=== PATIENT | female | born 1975 | race Caucasian/White ===

== ENCOUNTER 2017-09-27 08:00 | Outpatient (CLI) | payer OTHER ==
[2017-09-27 12:41] LABS: BASOPHILS % (AUTO) 0.5 %; EOSINOPHILS # (AUTO) 0.2 10^3/uL (0.0-0.7); EOSINOPHILS % (AUTO) 2.1 %; HGB - HEMOGLOBIN 14.5 g/dL (12.0-16.0); LYMPHOCYTES # (AUTO) 2.9 10^3/uL (1.5-3.5); LYMPHOCYTES % (AUTO) 33.6 %; MEAN CORPUSCULAR HEMOGLOBIN 29.1 pg (27.0-31.0); MEAN CORPUSCULAR HGB CONC 33.3 g/dL (32.0-36.0); MEAN CORPUSCULAR VOLUME 87.4 fL (81.0-99.0); MONOCYTES # (AUTO) 0.6 10^3/uL (0.0-1.0); MONOCYTES % (AUTO) 6.6 %; NEUTROPHILS % (AUTO) 57.2 %; PLT - PLATELET COUNT 250 10^3/uL (130-450); RED CELL DISTRIBUTION WIDTH 14.1 % (12.0-15.0); WHITE BLOOD COUNT 8.7 x10^3/uL (4.8-10.8)
[2017-09-27 13:38] LABS: THYROID STIMULATING HORMONE 6.78 uIU/mL (0.34-5.60)
[2017-09-27 13:40] LABS: FREE T4 (FREE THYROXINE) 0.68 ng/dL (0.58-1.64)
[2017-09-27 13:44] LABS: ALBUMIN 4.5 g/dL (3.2-5.5); ALBUMIN/GLOBULIN RATIO 1.2 (1.0-2.2); ALKALINE PHOSPHATASE 83 IU/L (42-121); ALT ALANINE AMINOTRANSFERASE 31 IU/L (10-60); AST ASPARTATE AMINOTRANSFERASE 28 IU/L (10-42); BILIRUBIN,TOTAL 0.6 mg/dL (0.2-1.0); BUN - BLOOD UREA NITROGEN 15 mg/dL (6-20); CALCIUM 9.2 mg/dL (8.5-10.3); CARBON DIOXIDE - CO2 27 mmol/L (21-32); CHLORIDE 105 mmol/L (101-111); CHOL/HDL RATIO 4.4 (<4.4); CHOLESTEROL 192 mg/dL; CREATININE 0.8 mg/dL (0.4-1.0); GFR - MDRD 79 (>89); GLUCOSE 95 mg/dL (70-100); HDL CHOLESTEROL 44 mg/dL; LDL CHOLESTEROL,CALCULATED 123 mg/dL; LDL/HDL RATIO 2.8 (<4.4); SODIUM 136 mmol/L (135-145); TOTAL PROTEIN 8.2 g/dL (6.7-8.2); VLDL CHOLESTEROL 25 mg/dL
== END 2017-09-27 08:01 | disposition home or self-care (01) ==
LOC: LAB.WCP 08:00
PROVIDERS: ATTEND Family Medicine
DX: E66.9 Obesity, unspecified (principal); E55.9 Vitamin D deficiency, unspecified; F41.9 Anxiety disorder, unspecified; E89.2 Postprocedural hypoparathyroidism; E89.0 Postprocedural hypothyroidism
CPT/HCPCS: 36415; 80053; 80061; 82306; 83721; 83970; 84439; 84443; 84481; 85025

== ENCOUNTER 2017-10-20 00:28 | Emergency (ER) | payer OTHER ==
[2017-10-20 01:25] LABS: BASOPHILS # (AUTO) 0.1 10^3/uL (0.0-0.1); BASOPHILS % (AUTO) 0.7 %; EOSINOPHILS # (AUTO) 0.2 10^3/uL (0.0-0.7); EOSINOPHILS % (AUTO) 1.9 %; HGB - HEMOGLOBIN 13.8 g/dL (12.0-16.0); LYMPHOCYTES # (AUTO) 4.4 10^3/uL (1.5-3.5); LYMPHOCYTES % (AUTO) 38.1 %; MEAN CORPUSCULAR HEMOGLOBIN 28.4 pg (27.0-31.0); MEAN CORPUSCULAR HGB CONC 32.7 g/dL (32.0-36.0); MEAN CORPUSCULAR VOLUME 86.8 fL (81.0-99.0); MEAN PLATELET VOLUME 10.1 fL (7.9-10.8); MONOCYTES # (AUTO) 0.7 10^3/uL (0.0-1.0); MONOCYTES % (AUTO) 6.4 %; NEUTROPHILS # (AUTO) 6.1 10^3/uL (1.5-6.6); NEUTROPHILS % (AUTO) 52.9 %; PLT - PLATELET COUNT 243 10^3/uL (130-450); RED BLOOD COUNT 4.86 10^6/uL (4.20-5.40); RED CELL DISTRIBUTION WIDTH 13.8 % (12.0-15.0); WHITE BLOOD COUNT 11.5 x10^3/uL (4.8-10.8)
[2017-10-20 01:32] LABS: BILIRUBIN,URINE NEGATIVE (NEGATIVE); GLUCOSE, URINE (UA) NEGATIVE (NEGATIVE); KETONES,URINE (UA) NEGATIVE (NEGATIVE); LEUKOCYTE ESTERASE, URINE NEGATIVE (NEGATIVE); NITRITE,URINE NEGATIVE (NEGATIVE); OCCULT BLOOD,URINE NEGATIVE (NEGATIVE); PROTEIN,URINE NEGATIVE (NEGATIVE); UROBILINOGEN,URINE 0.2 (NORMAL) E.U./dL (NORMAL)
[2017-10-20 01:33] LABS: ALBUMIN 4.3 g/dL (3.2-5.5); ALBUMIN/GLOBULIN RATIO 1.2 (1.0-2.2); BILIRUBIN,TOTAL 0.7 mg/dL (0.2-1.0); CALCIUM 9.3 mg/dL (8.5-10.3); CREATININE 0.7 mg/dL (0.4-1.0)
[2017-10-20 01:37] LABS: CLARITY,URINE CLEAR (CLEAR)
--- NOTE | 2017-10-20 01:45 | ED Physician Documentation ---
PD HPI CHEST PAIN - Stated complaint Stated Complaint: CHEST PX - Chief complaint Chief Complaint: Cardiac - History obtained from History obtained from: Patient - History of Present Illness Timing - onset: Today Timing - onset during: Rest Timing - details: Abrupt onset, Now resolved Quality: Pressure Location: Substernal, Left chest Radiation: Left upper extremity Similar symptoms before: No diagnosis Recently seen: Not recently seen - Additional information Additional information: Patient is a 42 year old female with a history of anxiety who is presenting to the emergency department for chest pain. patient states that she woke of from sleep with left sided chest pain with some radiation down her arm. patient denies any aggravating or alleviating factors. Patient states that she has had anxiety before but not like this. Patient states that it is close to the anniversary of her father dying of a heart attack when he was 51 so she was nervous. Review of Systems Constitutional: denies: Fever, Chills Eyes: reports: Reviewed and negative Ears: reports: Reviewed and negative Nose: reports: Reviewed and negative Throat: reports: Reviewed and negative Cardiac: reports: Chest pain / pressure. 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, Tubal ligation - Present Medications Home Medications: Ambulatory Orders Medication Instructions Recorded Confirmed Amitriptyline [Elavil] 1 tab PO DAILY 10/20/17 - Allergies Allergies/Adverse Reactions: Allergies Allergy/AdvReac Type Severity Reaction Status Date / Time evens AdvReac Intermediate Rash Uncoded 10/20/17 00:46 - Social History Does the pt smoke?: No Smoking Status: Never smoker Does the pt drink ETOH?: No Does the pt have substance abuse?: No - Immunizations Immunizations are current?: Yes - POLST Patient has POLST: No PD ED PE NORMAL - Vitals Vital signs reviewed: Yes - General General: Alert and oriented X 3, No acute distress - HEENT HEENT: Atraumatic, PERRL, Moist mucous membranes - Neck Neck: No JVD - Cardiac Cardiac: RRR, No murmur - Respiratory Respiratory: No respiratory distress - Abdomen Abdomen: Soft, Non tender - Derm Derm: Normal color, No rash - Extremities Extremities: No deformity, No edema, No calf tenderness / cord - Neuro Neuro: Alert and oriented X 3, No motor deficit, Normal speech Eye Opening: Spontaneous Motor: Obeys Commands Verbal: Oriented GCS Score: 15 PD ED PE EXPANDED - General General: Alert, Anxious Results - Vitals Vitals: Vital Signs - 24 hr 10/20/17 10/20/17 00:30 02:33 Temperature 36 C L Heart Rate 85 88 Respiratory 18 16 Rate Blood Pressure 128/84 H 109/62 O2 Saturation 100 96 Oxygen O2 Source Room air - EKG (time done) 0035 Rate: Rate (enter#) (76) Rhythm: NSR [place]: Normal Intervals: Normal TN QRS: Normal Ischemia: Normal ST segments Compare to prior EKG: Old EKG unavailable - Labs Labs: Laboratory Tests 10/20/17 10/20/17 10/20/17 00:30 00:30 00:30 WBC 11.5 H RBC 4.86 Hgb 13.8 Hct 42.2 MCV 86.8 MCH 28.4 MCHC 32.7 RDW 13.8 Plt Count 243 MPV 10.1 Neut # 6.1 Lymph # 4.4 H [place] # 0.7 Eos # 0.2 Baso # 0.1 Absolute Nucleated RBC 0.00 Nucleated RBC % 0.0 Sodium 137 Potassium 3.3 L Chloride 103 Carbon Dioxide 27 Anion Gap 7.0 BUN 17 Creatinine 0.7 Estimated GFR (MDRD) 92 Glucose 93 Calcium 9.3 Total Bilirubin 0.7 AST 24 ALT 28 Alkaline Phosphatase 97 Troponin I < 0.04 B-Natriuretic Peptide Total Protein 8.0 Albumin 4.3 Globulin 3.7 Albumin/Globulin Ratio 1.2 Lipase 33 Urine Color Urine Clarity Urine pH Ur Specific [place] Urine Protein Urine Glucose (UA) Urine Ketones Urine Occult Blood Urine Nitrite Urine Bilirubin Urine Urobilinogen Ur Leukocyte Esterase Ur Microscopic Review Urine Culture Comments 10/20/17 10/20/17 10/20/17 00:30 01:14 02:25 WBC RBC Hgb Hct MCV MCH MCHC RDW Plt Count MPV Neut # Lymph # [place] # Eos # Baso # Absolute Nucleated RBC Nucleated RBC % Sodium Potassium Chloride Carbon Dioxide Anion Gap BUN Creatinine Estimated GFR (MDRD) Glucose Calcium Total Bilirubin AST ALT Alkaline Phosphatase Troponin I < 0.04 B-Natriuretic Peptide 5 Total Protein Albumin Globulin Albumin/Globulin Ratio Lipase Urine Color YELLOW Urine Clarity CLEAR Urine pH 6.0 Ur Specific [place] 1.020 Urine Protein NEGATIVE Urine Glucose (UA) NEGATIVE Urine Ketones NEGATIVE Urine Occult Blood NEGATIVE Urine Nitrite NEGATIVE Urine Bilirubin NEGATIVE Urine Urobilinogen 0.2 (NORMAL) Ur Leukocyte Esterase NEGATIVE Ur Microscopic Review NOT INDICATED Urine Culture Comments NOT INDICATED - Rads (name of study) chest x-ray Radiology: Final report received (normal) PD MEDICAL DECISION MAKING - ED course Complexity details: reviewed old records, reviewed results, re-evaluated patient , considered differential, d/w patient ED course: Patient was seen and examined at bedside. ekg was performed and was within normal limits. IV access was gained and labs were drawn. chest x-ray was ordered. Patient was well appearing and in no active chest pain. Patient's diagnostics, including repeat troponin were negative. patient had a HEART score of 1. Patient required no further work up and was stable for discharge with outpatient follow up. Departure - Departure Disposition: 01 Home, Self Care Clinical Impression: Atypical chest pain Condition: Good Instructions: ED Chest Pain Atypical Unkn Cause Follow-Up: Raya Guevara PA [Primary Care Provider] - Tomorrow Comments: Your diagnostics today were within normal limits. there is no indication of acute cardiac damage. That being said this is only a snap shot in time. It is important that you follow up with your doctor. Due to the family history you could schedule a stress test and echocardiogram. You may return to the emergency department at any time for new, worsening or uncontrollable symptoms.
[2017-10-20 02:34] VITALS: BP 109/62
== END 2017-10-20 03:02 | disposition home or self-care (01) ==
LOC: ED 00:28
DX: R07.89 Other chest pain (principal)
CPT/HCPCS: 36415; 80053; 81001; 81003; 83690; 83880; 84484; 85025; 87086; 93005; 99283; 99285

== ENCOUNTER 2017-11-05 13:50 | Outpatient (CLI) | payer OTHER | END 2017-11-05 13:51 | disposition home or self-care (01) | LOC: DI 13:50 | PROVIDERS: ATTEND Physician Assistant | DX: I20.9 Angina pectoris, unspecified (principal) | CPT/HCPCS: 93306 ==

== ENCOUNTER 2017-11-07 20:58 | Outpatient (CLI) | payer OTHER ==
--- NOTE | 2017-11-08 09:42 | Ultrasound Report ---
THYROID ULTRASOUND: 11/07/2017 CLINICAL INDICATION: Dysphagia, history of thyroid surgery. COMPARISON: 07/15/2015. TECHNIQUE: Real-time scanning was performed with sales representative health insurance static images obtained. FINDINGS: The right lobe is surgically absent. The left lobe measures 4.9 x 1.6 x 0.9 cm, and demonstrates normal echotexture. The isthmus measures 2 mm. No adenopathy is seen. IMPRESSION: POSTOPERATIVE CHANGES OF RIGHT HEMITHYROIDECTOMY. NO NEW THYROID NODULE. TD: 11/08/2017 09:41
== END 2017-11-07 20:59 | disposition home or self-care (01) ==
LOC: DI 20:58
PROVIDERS: ATTEND Physician Assistant
DX: R47.02 Dysphasia (principal); E89.0 Postprocedural hypothyroidism
CPT/HCPCS: 76536

== ENCOUNTER 2017-11-11 11:14 | Outpatient (CLI) | payer OTHER ==
[2017-11-11 19:13] LABS: MAGNESIUM 2.1 mg/dL (1.7-2.8)
== END 2017-11-11 11:15 | disposition home or self-care (01) ==
LOC: LAB.WCP 11:14
PROVIDERS: ATTEND Physician Assistant
DX: E89.0 Postprocedural hypothyroidism (principal); R25.2 Cramp and spasm
CPT/HCPCS: 36415; 83735; 84443

== ENCOUNTER 2017-12-02 11:20 | Outpatient (CLI) | payer OTHER | END 2017-12-02 11:21 | disposition home or self-care (01) | LOC: LAB.WCP 11:20 | PROVIDERS: ATTEND Physician Assistant | DX: R39.15 Urgency of urination (principal) | CPT/HCPCS: 87086 ==

== ENCOUNTER 2018-02-06 08:53 | Outpatient (CLI) | payer OTHER ==
[2018-02-06 13:10] LABS: THYROID STIMULATING HORMONE 2.53 uIU/mL (0.34-5.60)
[2018-02-06 13:11] LABS: FREE T4 (FREE THYROXINE) 1.01 ng/dL (0.58-1.64)
[2018-02-06 13:38] LABS: FOLLICLE STIMULATING HORMONE 5.22 mIU/mL
== END 2018-02-06 08:54 | disposition home or self-care (01) ==
LOC: LAB.WCP 08:53
PROVIDERS: ATTEND Physician Assistant
DX: N93.9 Abnormal uterine and vaginal bleeding, unspecified (principal); E89.0 Postprocedural hypothyroidism
CPT/HCPCS: 36415; 83001; 84144; 84439; 84443

== ENCOUNTER 2018-04-06 08:00 | Outpatient (CLI) | payer OTHER ==
[2018-04-06 18:59] LABS: THYROID STIMULATING HORMONE 3.01 uIU/mL (0.34-5.60)
[2018-04-06 19:01] LABS: FREE T4 (FREE THYROXINE) 0.73 ng/dL (0.58-1.64)
== END 2018-04-06 08:01 | disposition home or self-care (01) ==
LOC: LAB.WCP 08:00
PROVIDERS: ATTEND Physician Assistant
DX: E89.0 Postprocedural hypothyroidism (principal)
CPT/HCPCS: 36415; 84439; 84443

== ENCOUNTER 2018-05-26 11:55 | Outpatient (CLI) | payer OTHER ==
--- NOTE | 2018-05-31 11:14 | Mammography Report ---
Reason: SCREENING MAMMO Procedure Date: 05/26/2018 Accession Number: [id number] / [id number] Procedure: MGN - Screening Mammo Dig Bilat CPT Code: FULL RESULT: EXAM: Screening Mammo Dig Bilat DATE: 05/26/2018 12:17 PM CLINICAL HISTORY: 43-year-old female with history of early menses for screening. TECHNIQUE: Bilateral CC, laterally exaggerated CC, MLO views were obtained. COMPARISON: None FINDINGS: The breasts demonstrate heterogeneously dense fibroglandular parenchyma bilaterally. No suspicious masses, clustered microcalcifications, or regions of architectural distortion are identified. IMPRESSION: Negative examination RECOMMENDATION: Routine annual screening unless otherwise clinically indicated. BIRADS CATEGORY 1: Negative STANDARD QUALIFYING STATEMENTS: 1. This examination was reviewed with the aid of Computer-Aided Detection (CAD). 2. A negative or benign imaging report should not delay biopsy if clinically suspicious findings are present. Consider surgical consultation if warrented. More than 5% of cancers are not identified by imaging. 3. Dense breasts may obscure an underlying neoplasm. 4. This examination was reviewed without the aid of 3D breast imaging (tomosynthesis).
== END 2018-05-26 11:56 | disposition home or self-care (01) ==
LOC: DI.N 11:55
DX: Z12.31 Encounter for screening mammogram for malignant neoplasm of breast (principal)
CPT/HCPCS: 77067

== ENCOUNTER 2018-07-06 08:00 | Outpatient (CLI) | payer OTHER ==
[2018-07-06 13:47] LABS: THYROID STIMULATING HORMONE 3.23 uIU/mL (0.34-5.60)
[2018-07-06 13:49] LABS: FREE T4 (FREE THYROXINE) 0.91 ng/dL (0.58-1.64)
== END 2018-07-06 23:59 | disposition home or self-care (01) ==
LOC: LAB.WCP 08:00
PROVIDERS: ATTEND Physician Assistant
DX: E89.0 Postprocedural hypothyroidism (principal)
CPT/HCPCS: 36415; 84439; 84443

== ENCOUNTER 2018-08-06 17:08 | Emergency (ER) | payer BC, OTHER ==
[2018-08-06] MEDS ORDERED: HYDROmorphone 2 MG TABLET PO STA ×2 (18:29→19:20)
--- NOTE | 2018-08-06 18:31 | ED Physician Documentation ---
PD HPI ABD PAIN - Stated complaint Stated Complaint: FEVER - Chief complaint Chief Complaint: Abd Pain - History obtained from History obtained from: Patient - History of Present Illness Timing - onset: Other (She went to the gynecology clinic 2 days ago for an exam. Was diagnosed with cervicitis and put on Flagyl. She was really having a symptoms but since then has had progressive right lower quadrant pain rating to the right flank with cloudy urine. She has no appendix.) Review of Systems Constitutional: reports: Fever (to 100) Ears: denies: Loss of hearing, Ear pain GI: reports: Abdominal Pain, Nausea. 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 SPECIALIST: section, Tubal ligation - Present Medications Home Medications: Ambulatory Orders Medication Instructions Recorded Confirmed Amitriptyline [Elavil] 1 tab PO DAILY 10/20/17 Metoclopramide [Reglan] 10 mg PO Q6H PRN #20 tablet 08/06/18 Morphine Ir [Ms Ir] 15 mg PO Q6H PRN #20 tablet 08/06/18 Tamsulosin [Flomax] 0.4 mg PO DAILY #14 capsule 08/06/18 - Allergies Allergies/Adverse Reactions: Allergies Allergy/AdvReac Type Severity Reaction Status Date / Time codeine Allergy Unknown Verified 08/06/18 17:26 hydrocodone Allergy Unknown Verified 08/06/18 17:26 oxycodone Allergy Unknown Verified 08/06/18 17:26 - Social History Does the pt smoke?: No Smoking Status: Never smoker Does the pt drink ETOH?: No Does the pt have substance abuse?: No - Immunizations Immunizations are current?: Yes - POLST Patient has POLST: No PD ED PE NORMAL - Vitals Vital signs reviewed: Yes - General General: Alert and oriented X 3, No acute distress - Abdomen Abdomen: Normal bowel sounds, Soft, Other (Mild RLQ TTP) - Derm Derm: Normal color, Warm and dry - Extremities Extremities: No edema, No calf tenderness / cord - Neuro Neuro: Alert and oriented X 3, Normal speech Results - Vitals Vitals: Vital Signs - 24 hr 08/06/18 17:20 Temperature 36.8 C Heart Rate 79 Respiratory 16 Rate Blood Pressure 136/77 H O2 Saturation 99 Oxygen O2 Source Room air - Labs Labs: Laboratory Tests 08/06/18 08/06/18 08/06/18 18:20 18:20 18:40 WBC 8.8 RBC 5.17 Hgb 14.9 Hct 45.0 MCV 87.1 MCH 28.9 MCHC 33.2 RDW 13.4 Plt Count 246 MPV 9.6 Neut # (Auto) 5.1 Lymph # (Auto) 2.7 [place] # (Auto) 0.7 Eos # (Auto) 0.2 Baso # (Auto) 0.1 Absolute Nucleated RBC 0.01 Nucleated RBC % 0.1 Sodium 140 Potassium 3.6 Chloride 106 Carbon Dioxide 25 Anion Gap 9.0 BUN 19 Creatinine 0.7 Estimated GFR (MDRD) 92 Glucose 90 Calcium 9.2 Total Bilirubin 0.5 AST 25 ALT 23 Alkaline Phosphatase 97 Total Protein 8.2 Albumin 4.2 Globulin 4.0 Albumin/Globulin Ratio 1.1 Lipase 42 Urine Color YELLOW Urine Clarity CLEAR Urine pH 6.0 Ur Specific [place] 1.025 Urine Protein NEGATIVE Urine Glucose (UA) NEGATIVE Urine Ketones NEGATIVE Urine Occult Blood LARGE H Urine Nitrite NEGATIVE Urine Bilirubin NEGATIVE Urine Urobilinogen 0.2 (NORMAL) Ur Leukocyte Esterase TRACE H Urine RBC TNTC H Urine WBC 4-5 Ur Squamous Epith Cells MANY Squamous H Urine Crystals 3-5 Calcium Oxalate Urine Bacteria Rare Ur Microscopic Review INDICATED Urine Culture Comments NOT INDICATED Urine HCG, Qual NEGATIVE 08/06/18 20:35 WBC RBC Hgb Hct MCV MCH MCHC RDW Plt Count MPV Neut # (Auto) Lymph # (Auto) [place] # (Auto) Eos # (Auto) Baso # (Auto) Absolute Nucleated RBC Nucleated RBC % Sodium Potassium Chloride Carbon Dioxide Anion Gap BUN Creatinine Estimated GFR (MDRD) Glucose Calcium Total Bilirubin AST ALT Alkaline Phosphatase Total Protein Albumin Globulin Albumin/Globulin Ratio Lipase Urine Color YELLOW Urine Clarity HAZY Urine pH 6.0 Ur Specific [place] >=1.030 H Urine Protein NEGATIVE Urine Glucose (UA) NEGATIVE Urine Ketones NEGATIVE Urine Occult Blood LARGE H Urine Nitrite NEGATIVE Urine Bilirubin NEGATIVE Urine Urobilinogen 0.2 (NORMAL) Ur Leukocyte Esterase NEGATIVE Urine RBC Urine WBC Ur Squamous Epith Cells Urine Crystals Urine Bacteria Ur Microscopic Review INDICATED Urine Culture Comments Not Reportable Urine HCG, Qual - Rads (name of study) CT KUB Radiology: EMP read contemporaneously (nephrolith, diverticulosis, 4x3mm distal ureteral stone) PD MEDICAL DECISION MAKING - ED course ED course: 43-year-old woman with right flank and lower abdominal pain since vaginal exam the other way but seemed inconsistent with anything that would be caused by that. A lot of blood in the urine, borderline signs of infection on the initial urinalysis which was contaminated with skin cells. She was administered divided doses of Dilaudid and a CT showed a nonobstructing distal right ureteral stone and she was also given Flomax. A repeat urine was ordered given the contaminated nature of the first urinalysis. Departure - Departure Disposition: Home, Self Care Clinical Impression: Renal colic on right side Condition: Good Record reviewed to determine appropriate education?: Yes Instructions: ED Stone Renal W Colic Prescriptions: Metoclopramide [Reglan] 10 mg PO Q6H PRN #20 tablet PRN Reason: nausea or headache Morphine Ir [Ms Ir] 15 mg PO Q6H PRN #20 tablet PRN Reason: Pain Tamsulosin [Flomax] 0.4 mg PO DAILY #14 capsule Comments: Follow-up with your urologist. Take the copy of the CAT scan on CD with you. Return for new or worsening symptoms. Do not drink or drive while taking the morphine.
[2018-08-06 18:33] LABS: BASOPHILS # (AUTO) 0.1 10^3/uL (0.0-0.1); BASOPHILS % (AUTO) 0.6 %; EOSINOPHILS # (AUTO) 0.2 10^3/uL (0.0-0.7); EOSINOPHILS % (AUTO) 1.9 %; HGB - HEMOGLOBIN 14.9 g/dL (12.0-16.0); LYMPHOCYTES # (AUTO) 2.7 10^3/uL (1.5-3.5); LYMPHOCYTES % (AUTO) 31.3 %; MEAN CORPUSCULAR HEMOGLOBIN 28.9 pg (27.0-31.0); MEAN CORPUSCULAR HGB CONC 33.2 g/dL (32.0-36.0); MEAN CORPUSCULAR VOLUME 87.1 fL (81.0-99.0); MEAN PLATELET VOLUME 9.6 fL (7.9-10.8); MONOCYTES # (AUTO) 0.7 10^3/uL (0.0-1.0); MONOCYTES % (AUTO) 8.3 %; NEUTROPHILS # (AUTO) 5.1 10^3/uL (1.5-6.6); NEUTROPHILS % (AUTO) 57.9 %; PLT - PLATELET COUNT 246 10^3/uL (130-450); RED BLOOD COUNT 5.17 10^6/uL (4.20-5.40); RED CELL DISTRIBUTION WIDTH 13.4 % (12.0-15.0); WHITE BLOOD COUNT 8.8 x10^3/uL (4.8-10.8)
[2018-08-06 18:44] LABS: ALBUMIN 4.2 g/dL (3.2-5.5); ALBUMIN/GLOBULIN RATIO 1.1 (1.0-2.2); BILIRUBIN,TOTAL 0.5 mg/dL (0.2-1.0); CALCIUM 9.2 mg/dL (8.5-10.3); CREATININE 0.7 mg/dL (0.4-1.0); TOTAL PROTEIN 8.2 g/dL (6.7-8.2)
[2018-08-06 18:50] LABS: BILIRUBIN,URINE NEGATIVE (NEGATIVE); GLUCOSE, URINE (UA) NEGATIVE (NEGATIVE); KETONES,URINE (UA) NEGATIVE (NEGATIVE); LEUKOCYTE ESTERASE, URINE TRACE (NEGATIVE); NITRITE,URINE NEGATIVE (NEGATIVE); OCCULT BLOOD,URINE LARGE (NEGATIVE); PROTEIN,URINE NEGATIVE (NEGATIVE); UROBILINOGEN,URINE 0.2 (NORMAL) E.U./dL (NORMAL)
[2018-08-06 18:53] LABS: CLARITY,URINE CLEAR (CLEAR); HCG UR QUAL NEGATIVE
[2018-08-06 18:57] LABS: BACTERIA,URINE Rare /HPF (None Seen); RBC,URINE TNTC /HPF (0-5); SQUAMOUS EPITHELIAL CELL,UR MANY Squamous (<= Few)
[2018-08-06 18:58] LABS: CRYSTALS,URINE 3-5 Calcium Oxalate /LPF
--- NOTE | 2018-08-06 20:13 | CT Report ---
Reason: R flank pain and hematuria Procedure Date: 08/06/2018 Accession Number: [id number] / [id number] Procedure: CT - Abdomen/Pelvis W/O CPT Code: FULL RESULT: EXAM: CT ABDOMEN AND PELVIS (CT KUB) WITHOUT CONTRAST. EXAM DATE: 08/06/2018 07:49 PM. CLINICAL HISTORY: Right flank pain and hematuria. COMPARISONS: None. TECHNIQUE: Routine axial helical CT imaging was performed through the abdomen and pelvis without IV contrast. Reconstructions: Coronal and sagittal. In accordance with CT protocol optimization, one or more of the following dose reduction techniques were utilized for this exam: automated exposure control, adjustment of mA and/or KV based on patient size, or use of iterative reconstructive technique. FINDINGS: Lung Bases: Unremarkable. Right Kidney/Ureter: At least 3 stones seen within the right kidney measuring 2-4 mm. There is a 4 x 3 mm calcification closely associated with the distal right ureter suspicious for a stone. Mild pelviectasis seen; otherwise no significant hydronephrosis or perinephric stranding. Left Kidney/Ureter: There is a 2 mm upper pole and 1 mm lower pole stone. No obstructive changes. Other Solid Organs: Noncontrast images of the solid organs are grossly unremarkable. Gallbladder/Bile Ducts: The gallbladder has been removed. No bile duct dilatation. Peritoneal Cavity: Diverticulosis without diverticulitis. No bowel obstruction. No free air or fluid collections. Pelvic Organs: No bladder stones or wall thickening. Noncontrast images of the visualized pelvic organs are unremarkable. Vasculature: Unremarkable. Other: Small hiatal hernia. IMPRESSION: 1. Nonobstructing 4 x 3 mm distal right ureteral stone. 2. Bilateral nephrolithiasis. 3. Diverticulosis. RADIA
[2018-08-06] MEDS ORDERED: CIPROFLOXACIN 250 MG TABLET PO STA (20:21)
[2018-08-06] MEDS ORDERED: TAMSULOSIN 0.4 MG CAPSULE PO STA (20:29)
[2018-08-06 20:40] LABS: BILIRUBIN,URINE NEGATIVE (NEGATIVE); GLUCOSE, URINE (UA) NEGATIVE (NEGATIVE); KETONES,URINE (UA) NEGATIVE (NEGATIVE); LEUKOCYTE ESTERASE, URINE NEGATIVE (NEGATIVE); NITRITE,URINE NEGATIVE (NEGATIVE); OCCULT BLOOD,URINE LARGE (NEGATIVE); PROTEIN,URINE NEGATIVE (NEGATIVE); UROBILINOGEN,URINE 0.2 (NORMAL) E.U./dL (NORMAL)
[2018-08-06 20:49] LABS: CLARITY,URINE HAZY (CLEAR)
[2018-08-06 21:07] LABS: BACTERIA,URINE Many /HPF (None Seen); RBC,URINE TNTC /HPF (0-5); SQUAMOUS EPITHELIAL CELL,UR MANY Squamous (<= Few)
[2018-08-06 21:17] VITALS: BP 114/69
== END 2018-08-06 21:26 | disposition home or self-care (01) ==
LOC: ED 17:08
DX: N20.2 Calculus of kidney with calculus of ureter (principal)
CPT/HCPCS: 36415; 74176; 80053; 81001; 81025; 83690; 85025; 87086; 99283; A9270; 81003

== ENCOUNTER 2018-08-10 17:43 | Outpatient (CLI) | payer BC, OTHER ==
--- NOTE | 2018-08-10 18:58 | Ultrasound Report ---
Reason: PELVIC PAIN Procedure Date: 08/10/2018 Accession Number: [id number] / [id number] Procedure: US - Pelvic w/Transvaginal CPT Code: FULL RESULT: EXAM: PELVIC ULTRASOUND EXAM DATE: 08/10/2018 06:24 PM. CLINICAL HISTORY: PELVIC PAIN. COMPARISON: 08/06/[address] TECHNIQUE: Realtime transabdominal pelvic scan performed to identify the uterus and adnexa and as an overview of other pelvic structures, followed by transvaginal scan to provide greater detail of the uterus and adnexa, with static image documentation. FINDINGS: Uterus: Surgically absent. Cervix: Still present. Unremarkable.. Right Ovary and left Ovary: Surgically absent. No adnexal masses. Free Fluid: None. Other: None. IMPRESSION: Negative pelvic ultrasound status post hysterectomy and bilateral oophorectomy. The cervix remains. RADIA
== END 2018-08-10 17:44 | disposition home or self-care (01) ==
LOC: DI 17:43
PROVIDERS: ATTEND Obstetrics & Gynecology
DX: R10.2 Pelvic and perineal pain (principal)
CPT/HCPCS: 76830; 76856

== ENCOUNTER 2018-08-28 17:55 | Outpatient (CLI) | payer BC ==
--- NOTE | 2018-08-28 23:27 | CT Report ---
Reason: CALCULUS OF KIDNEY Procedure Date: 08/28/2018 Accession Number: [id number] / [id number] Procedure: CT - Abdomen/Pelvis W/O CPT Code: FULL RESULT: EXAM: CT ABDOMEN AND PELVIS (CT KUB) EXAM DATE: 08/28/2018 06:13 PM. CLINICAL HISTORY: Calculus of kidney. COMPARISONS: ABDOMEN/PELVIS W/O 08/06/2018 7:31 PM. TECHNIQUE: Routine axial helical CT imaging was performed through the abdomen and pelvis without IV contrast. Reconstructions: Coronal and sagittal. In accordance with CT protocol optimization, one or more of the following dose reduction techniques were utilized for this exam: automated exposure control, adjustment of mA and/or KV based on patient size, or use of iterative reconstructive technique. FINDINGS: Lung Bases: Small hiatal hernia. Right Kidney/Ureter: Couple of small, approximately 2 mm nonobstructing stones. Mild right renal scarring. No ureteral stones, hydronephrosis, or hydroureter. No perinephric fat stranding. Left Kidney/Ureter: Scattered tiny stones measuring up to 2 mm at the upper pole. Mild left renal scarring. No ureteral stones, hydronephrosis, or hydroureter. No perinephric fat stranding. Other Solid Organs: Noncontrast images of the solid organs are grossly unremarkable. Gallbladder/Bile Ducts: Unremarkable post-cholecystectomy. Peritoneal Cavity: No free fluid, free air or yves adenopathy. Bowel is grossly unremarkable. Pelvic Organs: No bladder stones or wall thickening. Noncontrast images of the visualized pelvic organs are unremarkable. Vasculature: Unremarkable. Other: None. IMPRESSION: 1. Small bilateral nonobstructing renal stones with similar stone burden compared to the 2017 study. No ureteral stone or hydronephrosis currently. 2. Previous cholecystectomy. 3. Small hiatal hernia. RADIA
== END 2018-08-28 17:56 | disposition home or self-care (01) ==
LOC: DI 17:55
PROVIDERS: ATTEND Urology
DX: N20.0 Calculus of kidney (principal); K44.9 Diaphragmatic hernia without obstruction or gangrene; Z90.49 Acquired absence of other specified parts of digestive tract
CPT/HCPCS: 74176

== ENCOUNTER 2018-10-10 08:00 | Outpatient (CLI) | payer BC, OTHER ==
[2018-10-10 19:38] LABS: THYROID STIMULATING HORMONE 2.61 uIU/mL (0.34-5.60)
[2018-10-10 19:42] LABS: FREE T4 (FREE THYROXINE) 0.81 ng/dL (0.58-1.64)
== END 2018-10-10 23:59 | disposition home or self-care (01) ==
LOC: LAB.WCP 08:00
PROVIDERS: ATTEND Physician Assistant
DX: E89.0 Postprocedural hypothyroidism (principal)
CPT/HCPCS: 36415; 84439; 84443

== ENCOUNTER 2018-10-31 08:00 | Outpatient (CLI) | payer BC, OTHER ==
[2018-10-31 12:51] LABS: BASOPHILS % (AUTO) 0.6 %; EOSINOPHILS # (AUTO) 0.2 10^3/uL (0.0-0.7); HGB - HEMOGLOBIN 14.8 g/dL (12.0-16.0); LYMPHOCYTES # (AUTO) 3.1 10^3/uL (1.5-3.5); LYMPHOCYTES % (AUTO) 39.2 %; MEAN CORPUSCULAR HEMOGLOBIN 28.4 pg (27.0-31.0); MEAN CORPUSCULAR HGB CONC 33.2 g/dL (32.0-36.0); MEAN CORPUSCULAR VOLUME 85.7 fL (81.0-99.0); MONOCYTES # (AUTO) 0.6 10^3/uL (0.0-1.0); MONOCYTES % (AUTO) 7.8 %; NEUTROPHILS % (AUTO) 50.4 %; PLT - PLATELET COUNT 268 10^3/uL (130-450); RED BLOOD COUNT 5.19 10^6/uL (4.20-5.40); RED CELL DISTRIBUTION WIDTH 14.1 % (12.0-15.0); WHITE BLOOD COUNT 7.9 x10^3/uL (4.8-10.8)
[2018-10-31 13:29] LABS: ALBUMIN 4.2 g/dL (3.2-5.5); ALBUMIN/GLOBULIN RATIO 1.1 (1.0-2.2); BILIRUBIN,TOTAL 0.3 mg/dL (0.2-1.0); CALCIUM 9.7 mg/dL (8.5-10.3); CREATININE 0.6 mg/dL (0.4-1.0); TOTAL PROTEIN 7.9 g/dL (6.7-8.2)
== END 2018-10-31 23:59 | disposition home or self-care (01) ==
LOC: LAB.WCP 08:00
PROVIDERS: ATTEND Obstetrics & Gynecology
DX: Z01.812 Encounter for preprocedural laboratory examination (principal); N93.9 Abnormal uterine and vaginal bleeding, unspecified
CPT/HCPCS: 36415; 80053; 85025; 86850; 86900; 86901

== ENCOUNTER 2018-11-01 11:49 | Day surgery (SDC) | payer BC, OTHER ==
[2018-11-01] MEDS ORDERED: ceFAZolin 2 GM/50 ML 2 GM/50 ML BAG IV ONE (12:07)
[2018-11-01] MEDS ORDERED: LACTATED RINGERS 1,000 ML IV ONE ×2 (12:49→17:40)
--- NOTE | 2018-11-01 13:35 | ANESTHESIA ---
Pre-Anesthesia VS, & Labs - Diagnosis Continued vaginal bleeding - Procedure Removal of cervix Vital Signs: Temp Pulse Resp BP Pulse Ox 36.8 C 74 16 128/93 H 100 11/01/18 12:05 11/01/18 12:05 11/01/18 12:05 11/01/18 12:05 11/01/18 12:05 Height 5 ft 3 in Weight (kg) 84 kg Body Mass Index 31.5 - NPO >8 hours - Is Patient ?: No Home Medications and Allergies Home Medications: Ambulatory Orders ALPRAZolam [Alprazolam] 0.25 mg PO DAILY PRN 10/24/18 EPINEPHrine [Epinephrine] 0.3 mg IJ ONCE PRN 10/24/18 Estradiol [Climara] 1 each TD OAW 10/24/18 Levothyroxine Sodium 50 mcg PO DAILY 10/24/18 Multivitamin [Multiple Vitamins] 1 each PO DAILY 10/24/18 Ropinirole HCl [Requip] 0.5 mg PO QPM PRN 10/24/18 Suvorexant [Belsomra] 10 mg PO QPM PRN 10/24/18 hydrOXYzine PAMOATE [Vistaril] 25 - 50 mg PO Q6H PRN 10/24/18 ALPRAZolam [Alprazolam] 0.25 mg PO DAILY PRN 10/24/18 EPINEPHrine [Epinephrine] 0.3 mg IJ ONCE PRN 10/24/18 Estradiol [Climara] 1 each TD OAW 10/24/18 Levothyroxine Sodium 50 mcg PO DAILY 10/24/18 Multivitamin [Multiple Vitamins] 1 each PO DAILY 10/24/18 Ropinirole HCl [Requip] 0.5 mg PO QPM PRN 10/24/18 Suvorexant [Belsomra] 10 mg PO QPM PRN 10/24/18 hydrOXYzine PAMOATE [Vistaril] 25 - 50 mg PO Q6H PRN 10/24/18 Allergies/Adverse Reactions: Allergies Allergy/AdvReac Type Severity Reaction Status Date / Time blackberry Allergy Anaphylaxis Verified 10/24/18 10:49 codeine Allergy Unknown Verified 10/24/18 10:49 hydrocodone Allergy Unknown Verified 10/24/18 10:49 oxycodone Allergy Unknown Verified 10/24/18 10:49 raspberry Allergy Anaphylaxis Verified 10/24/18 10:49 Anes History & Medical History - Anesthetic History Anesthesia Complications: reports: Post-Operative Nausea/Vomiting - Medical History Cardiovascular: reports: None, Other (Had negative stress test and normal echo) Pulmonary: reports: None Gastrointestinal: reports: Hiatal hernia Urinary: reports: Kidney stones Neuro: reports: None Musculoskeletal: reports: Fatigue, Chronic back pain Endocrine/Autoimmune: reports: HyPOthyroidism Blood Disorders: reports: None Skin: reports: Rosacea, Other Smoking Status: Never smoker Psychosocial: reports: Anxiety - Surgical History General: Cholecystectomy, Appendectomy Urologic: Ureterolithotomy (stones) Gynecologic: section, Tubal ligation, Hysterectomy Exam General: Alert, Oriented x3, Cooperative, No acute distress Dental: WNL Mouth Openin Fingerbreadth Neck Mobility: Normal Mallampati classification: II Thyromental Distance: 4-6 cm Respiratory: Lungs clear, Normal breath sounds, No respiratory distress, No accessory muscle use Cardiovascular: Regular rate, Normal S1, Normal S2, No murmurs Mental/Cognitive Status: Alert/Oriented X3, Normal for patient Plan Anesthesia Type: General Consent for Procedure(s) Verified and Reviewed: Yes Code Status: Attempt Resuscitation ASA classification: 2-Mild systemic disease Is this case an emergency?: No
[2018-11-01] MEDS ORDERED: SCOPOLAMINE PATCH TOP ONE (13:57)
[2018-11-01] MEDS ORDERED: BUPIVACAINE 0.5%-EPI 1:200000 PF 30 ML VIAL ONE (15:02)
[2018-11-01] MEDS ORDERED: METHYLENE BLUE 0.5% 50 MG/10 ML AMPULE ONE (15:02)
[2018-11-01] MEDS ORDERED: BUPIVACAINE 0.25%-EPI 1:200000 PF 30 ML VIAL ONE ×2 (15:22→15:44)
[2018-11-01] MEDS ORDERED: BUPIVACAINE 0.25%-EPI 1:200000 PF 30 ML VIAL SUBQ ONE ×2 (16:04)
[2018-11-01] MEDS ORDERED: SUGAMMADEX 200 MG/2 ML VIAL IVP ONE (17:39)
[2018-11-01] MEDS ORDERED: KETOROLAC 30 MG/ML VIAL IVP ONE (17:48)
[2018-11-01] MEDS ORDERED: GLYCOPYRROLATE 1 MG/5 ML VIAL IVP ONE (17:48)
[2018-11-01] MEDS ORDERED: DEXAMETHASONE 4 MG/ML VIAL IVP ONE (17:48)
[2018-11-01] MEDS ORDERED: NEOSTIGMINE 1 MG/1 ML 10 ML MDV IVP ONE (17:48)
[2018-11-01] MEDS ORDERED: ONDANSETRON 4 MG/2 ML VIAL IVP ONE (17:48)
[2018-11-01] MEDS ORDERED: PROPOFOL 200 MG/20 ML VIAL IVP ONE (17:48)
[2018-11-01] MEDS ORDERED: MIDAZOLAM 2 MG/2 ML VIAL IVP ONE (17:48)
[2018-11-01] MEDS ORDERED: fentaNYL 250 MCG/5 ML VIAL IVP ONE (17:48)
[2018-11-01] MEDS ORDERED: ROCURONIUM 50 MG/5 ML VIAL IVP ONE (17:48)
[2018-11-01] MEDS ORDERED: ONDANSETRON 4 MG/2 ML VIAL IVP PRN (17:52)
[2018-11-01] MEDS ORDERED: ACETAMINOPHEN 1,000 MG/100 ML 100 ML IV ONE (17:52)
[2018-11-01] MEDS ORDERED: LORazepam 2 MG/ML VIAL IVP PRN (17:52)
--- NOTE | 2018-11-01 18:01 | OPERATIVE REPORT ---
Operative Report - General Procedure Date: 11/01/18 Planned Procedure: Laproscopy assisted vaginal trachelectomy, cystoscopy Pre-Op Diagnosis: vaginal bleeding Procedure Performed: laprscopic assisted vaginal trachelectomy Post Op Diagnosis: same - Procedure Note Primary Surgeon: Jake Fried MD Secondary Surgeon: Denise Wood MD Anesthesia Provider: Tavon Soria CRNA Anesthesia Technique: General ET tube Pathology: crevix IV Fluids (mL): 1,600 Estimated Blood Loss (mL): 100 Urine Output (mL): 150 Findings: Hterus and ovaries with tubes absent - Other Other Information/Narrative: #[id number]
[2018-11-01] MEDS: HYDROmorphone 0.5 MG/0.5 ML SYRINGE IVP PRN ×3 (18:02→23:51)
[2018-11-01] MEDS: LACTATED RINGERS 1,000 ML IV SCH ×2 (18:45)
[2018-11-01] MEDS ORDERED: ONDANSETRON 4 MG/2 ML VIAL ONE (18:55)
[2018-11-01] MEDS ORDERED: SODIUM CHLORIDE FLUSH 0.9% 10 ML SYRINGE ONE (18:55)
--- NOTE | 2018-11-01 20:11 | OPERATIVE REPORT ---
DATE OF SERVICE: 11/01/2018 Physician: Jake Fried MD PREOPERATIVE DIAGNOSIS: Continued bleeding despite hysterectomy. POSTOPERATIVE DIAGNOSIS: Continued bleeding despite hysterectomy. PROCEDURE PERFORMED: Laparoscopically-assisted vaginal trachelectomy with cystoscopy. SURGEON: Jake Fried MD JOB HONER: Denise Wood MD ANESTHESIA: General via endotracheal tube with Anastasiia Soria CRNA. ESTIMATED BLOOD LOSS: 100 mL. IV FLUIDS: 1600 mL. URINE OUTPUT: 150 mL. FINDINGS: Upon entering the abdominal cavity, there was no evidence of any adhesions in the pelvis. The tubes and ovaries were surgically absent. The cervix was still in place. There was no evidence of adhesive disease in the pelvis. DESCRIPTION OF PROCEDURE: Following adequate endotracheal anesthesia, the patient was placed in the dorsal lithotomy position in Castro stirrups. Pelvic examination under anesthesia was performed, at w hich time, the cervix was palpated. At this point, the patient was prepped and draped in the usual f ashion. A timeout was performed, at which time, the concerns were addressed. A speculum was placed in the vagina. The cervix was visualized, grasped with a single-tooth tenaculu m, and then a cervical manipulator was placed in the cervical os. The operative gloves were changed, and then following local anesthesia with 0.25% Marcaine in the subumbilical area, a #11 blade was us ed to incise below the umbilicus transversely. A 5 mm trocar and sheath were placed on a single pass under direct visualization. CO2 was then used to insufflate the abdominal cavity. A trocar was the n placed in the right lower quadrant, following local anesthesia as well as transillumination and ski n incision with a #11 blade. This was done on the first pass. The pelvis was inspected as the patie nt was placed in Trendelenburg. Both ovaries and tubes were missing. The cervix was still in place. At this point, the CO2 was allowed to escape. The scopes were removed. Attention was then changed to the vaginal area. A weighted speculum was placed in the vagina. The c ervix was visualized, grasped with Holt retractors, both anterior and posterior, following removal of the acorn. Cervix was then circumscribed with electrocautery, and then the cervix was sharply and bluntly dissected off the bladder. The posterior cul-de-sac was then entered using Daley scissors, a nd then a long-billed weighted speculum was placed. At this point, care was assured that we were in the abdominal cavity anteriorly. Liberty clamps were then used bilaterally to crossclamp the transver se cervical ligament as well as the uterosacral ligament concomitantly. Liberty stitches of 0 Vicryl were then placed, and then additional pedicles developed using Liberty clamps, Daley scissors, and 0 Vi cryl sutures. This was carried all the way to the apex of the cervix. Care was taken to avoid any i njury to the bowel. At this point, the cervix was removed. There was some bleeding from the posterior cuff. This was tr eated with a running locking suture of 2-0 Monocryl. At this point, the suture on the right side was noted to have come free, so a Liberty clamp was placed, and a second suture was placed on the right-h and side. Care was taken to try and avoid any injury to the ureter or other adjacent structures. At this point, the apex of the vagina was closed utilizing 2-0 Monocryl in a running locking suture. G ood hemostasis was observed. Following this, a laparoscopy was reintroduced and the apex of the vagi na inspected. There was no evidence of any active bleeding. The laparoscope was removed, and then t he ports were closed using 4-0 Monocryl subcuticular, following allowing the CO2 gas to escape. Cystoscopy was then performed. There was evidence of good methylene blue-stained urine coming from b oth ureteral orifices. There was no bleeding on the bladder at this time. The patient tolerated the procedure well and was taken to recovery in stable condition. Sponge and needle counts were correct . TD: 11/01/2018 18:22
[2018-11-01] MEDS: HYDROmorphone 2 MG TABLET PO PRN (20:32)
[2018-11-01] MEDS ORDERED: diphenhydrAMINE 25 MG CAPSULE PO PRN (22:28)
[2018-11-02] MEDS: HYDROmorphone 2 MG TABLET PO PRN ×2 (02:37→08:55)
[2018-11-02] MEDS ORDERED: SODIUM CHLORIDE FLUSH 0.9% 10 ML SYRINGE ONE (04:21)
[2018-11-02 07:51] VITALS: BP 108/68
== END 2018-11-02 09:28 | disposition home or self-care (01) ==
LOC: SDS 11:49 → OBS 18:55 → SDS 11-02 09:28
PROVIDERS: ATTEND Obstetrics & Gynecology
PROC: 0WJJ4ZZ Inspection of Pelvic Cavity, Percutaneous Endoscopic Approach (ICD-10-PCS; 2018-11-01)
PROC: 0TJB8ZZ Inspection of Bladder, Via Natural or Artificial Opening Endoscopic (ICD-10-PCS; 2018-11-01)
PROC: 0UTC7ZZ Resection of Cervix, Via Natural or Artificial Opening (ICD-10-PCS; principal; 2018-11-01 12:45)
DX: N93.9 Abnormal uterine and vaginal bleeding, unspecified (principal); Z90.79 Acquired absence of other genital organ(s); F41.9 Anxiety disorder, unspecified; Z85.820 Personal history of malignant melanoma of skin; Z87.442 Personal history of urinary calculi; E03.9 Hypothyroidism, unspecified
CPT/HCPCS: 49320; 52000; 57530; A9270; J0131; J0690; J1170; J2060; J3010; J3490; J7120

== ENCOUNTER 2018-11-10 08:00 | Outpatient (CLI) | payer BC, OTHER | END 2018-11-10 08:01 | disposition home or self-care (01) | LOC: LAB.R 08:00 | PROVIDERS: ATTEND Obstetrics & Gynecology | DX: R30.0 Dysuria (principal) | CPT/HCPCS: 87086 ==

== ENCOUNTER 2019-01-18 16:31 | Outpatient (CLI) | payer BC, OTHER ==
[2019-01-18 17:14] LABS: T4 (THYROXINE) 7.82 ug/dL (6.09-12.23)
[2019-01-18 17:18] LABS: THYROID STIMULATING HORMONE 3.95 uIU/mL (0.34-5.60)
== END 2019-01-18 16:32 | disposition home or self-care (01) ==
LOC: LAB 16:31
PROVIDERS: ATTEND Physician Assistant
DX: E89.0 Postprocedural hypothyroidism (principal)
CPT/HCPCS: 84436; 84443

== ENCOUNTER 2019-02-04 21:08 | Emergency (ER) | payer BC, OTHER ==
[2019-02-04] MEDS ORDERED: ONDANSETRON ODT 4 MG TABLET TL STA (21:28)
[2019-02-04] MEDS ORDERED: KETOROLAC 60 MG/2 ML VIAL IM STA (21:28)
--- NOTE | 2019-02-04 21:28 | ED Physician Documentation ---
PD HPI LOWER EXT INJURY - Stated complaint Stated Complaint: LFT LEG INJ - Chief complaint Chief Complaint: Ext Problem - History obtained from History obtained from: Patient - History of Present Illness PD HPI LOW EXT INJURY LOCATION: Left, Lower leg Type of injury: No: Fall Where injury occurred: Other ([employer]) Timing - onset: How many hours ago (3), Today Timing - duration: Hours (3) Timing - details: Abrupt onset Improved by: Nothing Associated symptoms: No: Numbness Contributing factors: No: Prior ortho surgery Recently seen: Not recently seen - Additional information Additional information: Is a 43-year-old woman who was using what sounds like the stairmaster machine at [employer] when the machine just stopped abruptly in her left foot came off the step. It landed she landed hard on that foot and her "heard a crack". She had extreme pain in her left ankle when this happened. She was able to walk on it initially but within 10 minutes she could not put any weight on it and had to be "carried" into the house by her . She has since ambulated with crutches and been nonweightbearing. She has a prior injury to that knee with a meniscal tear did not require surgery. 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, Hysterectomy - Present Medications Home Medications: Ambulatory Orders Medication Instructions Recorded Confirmed ALPRAZolam [Alprazolam] 0.25 mg PO DAILY PRN 10/24/18 02/04/19 Estradiol [Climara] 1 each TD OAW 10/24/18 02/04/19 Levothyroxine Sodium 50 mcg PO DAILY 10/24/18 02/04/19 Multivitamin [Multiple Vitamins] 1 each PO DAILY 10/24/18 02/04/19 Suvorexant [Belsomra] 10 mg PO QPM PRN 10/24/18 02/04/19 Naproxen 375 mg PO BID #30 tablet 02/04/19 rOPINIRole [Requip] 0.5 mg PO DAILY 02/04/19 02/04/19 - Allergies Allergies/Adverse Reactions: Allergies Allergy/AdvReac Type Severity Reaction Status Date / Time blackberry Allergy Anaphylaxis Verified 02/04/19 21:28 codeine Allergy Unknown Verified 02/04/19 21:28 hydrocodone Allergy Unknown Verified 02/04/19 21:28 meperidine [From Demerol] Allergy Unknown Verified 02/04/19 21:42 oxycodone Allergy Unknown Verified 02/04/19 21:28 raspberry Allergy Anaphylaxis Verified 02/04/19 21:28 - Social History Does the pt smoke?: No Smoking Status: Never smoker Does the pt drink ETOH?: No Does the pt have substance abuse?: No - Immunizations Immunizations are current?: Yes - POLST Patient has POLST: No PD ED PE NORMAL - Vitals Vital signs reviewed: Yes - General General: Alert and oriented X 3, No acute distress, Well developed/nourished - Derm Derm: Normal color, Warm and dry, No rash, Other (No bruising or abrasion is noted.) - Extremities Extremities: No deformity, Other (Patient has tenderness in the popliteal fossa. No bony tenderness around the knee. Patella is very minimally ballotable. The ankle does not have any bruising or swelling. She is tender above the lateral malleolus on the fibula. Limited range of motion about the ankle because of pa in. The Achilles tendon is palpable and intact. She has a 2+ dorsalis pedis pulse and she is able to wiggle her toes sensation is intact to light touch.). No: No edema, No calf tenderness / cord - Neuro Neuro: Alert and oriented X 3 - Psych Psych: Normal mood, Normal affect Results - Vitals Vitals: Vital Signs - 24 hr 02/04/19 02/04/19 21:11 22:08 Temperature 36.9 C Heart Rate 104 H 88 Respiratory 18 16 Rate Blood Pressure 131/105 H 129/84 H O2 Saturation 99 98 Oxygen O2 Source Room air PD MEDICAL DECISION MAKING - ED course Complexity details: reviewed results, d/w patient, d/w family ED course: Pain is Down to a 6 out of 10 after the Toradol. X-rays were negative for fracture of the ankle. The knee has no obvious internal derangement on physical exam at this time. Patient has access to a set of crutches. She will be given a prescription for naproxen. Ice to the ankle and range of motion exercises. Follow-up with her primary care provider if her pain persist. Departure - Departure Disposition: 01 Home, Self Care Clinical Impression: Knee pain, left Qualifiers: Chronicity: acute Qualified Code(s): M25.562 - Pain in left knee Ankle pain, left Qualifiers: Chronicity: acute Qualified Code(s): M25.572 - Pain in left ankle and joints of left foot Condition: Good Instructions: ED Sprain Ankle Follow-Up: Raya Guevara PA [Primary Care Provider] - Prescriptions: Naproxen 375 mg PO BID #30 tablet Comments: Take the naproxen twice a day as prescribed for the next 3 to 4 days consistently. Make sure you take it with food. Use crutches and minimize the weightbearing if it is painful. Range of motion exercise about the ankle 3-4 times a day as discussed. Follow-up with your doctor if the pain in the ankle or knee persists.
--- NOTE | 2019-02-04 22:01 | XRAY Report ---
Reason: ankle pain Procedure Date: 02/04/2019 Accession Number: [id number] / [id number] Procedure: XR - Ankle 3 View LT CPT Code: FULL RESULT: EXAM: LEFT ANKLE RADIOGRAPHY EXAM DATE: 02/04/2019 09:39 PM. CLINICAL HISTORY: Ankle pain after fall down stairs. COMPARISON: None. TECHNIQUE: 3 views. FINDINGS: Bones: Normal. No fractures or bone lesions. Joints: Normal. No effusion. No subluxations. The ankle mortise is normally aligned. Soft Tissues: Normal. No soft tissue swelling. IMPRESSION: Normal ankle radiography. RADIA
[2019-02-04 22:09] VITALS: BP 129/84
== END 2019-02-04 22:35 | disposition home or self-care (01) ==
LOC: ED 21:08
DX: M25.572 Pain in left ankle and joints of left foot (principal); M25.562 Pain in left knee; W17.89XA Other fall from one level to another, initial encounter; Y93.A1 Activity, exercise machines primarily for cardiorespiratory conditioning; Y92.39 Other specified sports and athletic area as the place of occurrence of the external cause
CPT/HCPCS: 73610; 96372; 99283; 99284; Q0162

== ENCOUNTER 2019-03-27 12:52 | Emergency (ER) | payer BC, OTHER ==
[~2019-03-27 12:52] MED LIST: predniSONE 20 MG TABLET PO STA
--- NOTE | 2019-03-27 12:54 | ED Physician Documentation ---
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 She ate some raspberries just prior to arrival and started to develop itchiness and the feeling throat swelling. She took her EpiPen and that is improving but still little it itchy. She also took Benadryl prior to arrival. The EpiPen may have been but she does feel jittery and improved from the allergic symptoms.) Review of Systems Ten Systems: 10 systems reviewed and negative Constitutional: denies: Fever, Chills Nose: denies: Rhinorrhea / runny nose, Congestion Throat: reports: Sore throat GI: denies: Nausea, Vomiting PD PAST MEDICAL HISTORY - Past Medical History Cardiovascular: None, Other (Had negative stress test and normal echo) Respiratory: None Neuro: None Endocrine/Autoimmune: HyPOthyroidism GI: Hiatal hernia : Kidney stones HEENT: Chronic vision loss, Chronic sinusitis Psych: Anxiety, Panic attacks Musculoskeletal: Fatigue, Chronic back pain Derm: Rosacea, Other - Past Surgical History Past Surgical History: Yes General: Cholecystectomy, 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, Tubal 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, Hysterectomy - Present Medications Home Medications: Ambulatory Orders Medication Instructions Recorded Confirmed Estradiol [Climara] 1 each TD OAW 10/24/18 02/04/19 Multivitamin [Multiple Vitamins] 1 each PO DAILY 10/24/18 02/04/19 RX: ALPRAZolam [Alprazolam] 0.25 mg PO DAILY PRN 10/24/18 02/04/19 RX: Levothyroxine Sodium 50 mcg PO DAILY 10/24/18 02/04/19 Suvorexant [Belsomra] 10 mg PO QPM PRN 10/24/18 02/04/19 RX: Naproxen 375 mg PO BID #30 tablet 02/04/19 rOPINIRole [Requip] 0.5 mg PO DAILY 02/04/19 02/04/19 RX: EPINEPHrine [Epinephrine] 0.3 mg IJ ONCE PRN #2 auto.injct 03/27/19 RX: predniSONE [Deltasone] 60 mg PO DAILY 3 Days #9 tablet 03/27/19 - Allergies Allergies/Adverse Reactions: Allergies Allergy/AdvReac Type Severity Reaction Status Date / Time blackberry Allergy Anaphylaxis Verified 03/27/19 12:57 codeine Allergy Unknown Verified 03/27/19 12:57 hydrocodone Allergy Unknown Verified 03/27/19 12:57 meperidine [From Demerol] Allergy Unknown Verified 03/27/19 12:57 oxycodone Allergy Unknown Verified 03/27/19 12:57 raspberry Allergy Anaphylaxis Verified 03/27/19 12:57 - Social History Does the pt smoke?: No Smoking Status: Never smoker Does the pt drink ETOH?: No Does the pt have substance abuse?: No - Immunizations Immunizations are current?: Yes - POLST Patient has POLST: No PD ED PE NORMAL - Vitals Vital signs reviewed: Yes - General General: Alert and oriented X 3, No acute distress - HEENT HEENT: Pharynx benign - Neck Neck: Supple, no meningeal sign, No bony TTP - Cardiac Cardiac: RRR, No murmur - Respiratory Respiratory: No respiratory distress, Clear bilaterally - Abdomen Abdomen: Non tender - Derm Derm: No rash - Neuro Neuro: Alert and oriented X 3, Normal speech Results - Vitals Vitals: Vital Signs - 24 hr 03/27/19 03/27/19 12:54 14:17 Temperature 36.0 C L Heart Rate 86 94 Respiratory 19 19 Rate Blood Pressure 147/104 H 157/85 H O2 Saturation 100 97 Oxygen O2 Source Room air PD MEDICAL DECISION MAKING - ED course ED course: 43-year-old woman with mild anaphylaxis after eating raspberries. She had already self-administered IM epinephrine with improvement. She was administered steroids and doxepin for the itching. She was observed without recurrence of her symptoms. Departure - Departure Disposition: 01 Home, Self Care Clinical Impression: Anaphylaxis due to food Condition: Good Instructions: ED Allergic React Food Prescriptions: RX: EPINEPHrine [Epinephrine] 0.3 mg IJ ONCE PRN #2 auto.injct PRN Reason: Allergy Symptoms RX: predniSONE [Deltasone] 60 mg PO DAILY 3 Days #9 tablet Comments: Call your doctor to arrange a follow-up appointment, make the next available appointment. In the interim, return anytime if worse or if new symptoms develop . Avoid raspberries Discharge Date/Time: 03/27/19 14:17
[2019-03-27] MEDS ORDERED: DOXEPIN 10 MG CAPSULE PO STA (13:20)
[2019-03-27] MEDS ORDERED: IBUPROFEN 800 MG TABLET PO STA (13:21)
[2019-03-27 14:20] VITALS: BP 157/85
== END 2019-03-27 14:17 | disposition home or self-care (01) ==
LOC: ED 12:52
DX: T78.04XA Anaphylactic reaction due to fruits and vegetables, initial encounter (principal); X58.XXXA Exposure to other specified factors, initial encounter; Z91.018 Allergy to other foods
CPT/HCPCS: 1040M; 99282; 99283; A9270; J7512

== ENCOUNTER 2019-06-07 16:08 | Outpatient (CLI) | payer BC, OTHER ==
[2019-06-07 16:24] LABS: BASOPHILS % (AUTO) 0.4 %; EOSINOPHILS # (AUTO) 0.1 10^3/uL (0.0-0.7); EOSINOPHILS % (AUTO) 1.8 %; HGB - HEMOGLOBIN 14.1 g/dL (12.0-16.0); LYMPHOCYTES # (AUTO) 3.2 10^3/uL (1.5-3.5); MEAN CORPUSCULAR HEMOGLOBIN 28.5 pg (27.0-31.0); MEAN CORPUSCULAR HGB CONC 32.2 g/dL (32.0-36.0); MEAN CORPUSCULAR VOLUME 88.7 fL (81.0-99.0); MEAN PLATELET VOLUME 11.1 fL (7.9-10.8); MONOCYTES # (AUTO) 0.7 10^3/uL (0.0-1.0); MONOCYTES % (AUTO) 8.9 %; NEUTROPHILS # (AUTO) 3.9 10^3/uL (1.5-6.6); NEUTROPHILS % (AUTO) 48.6 %; PLT - PLATELET COUNT 272 10^3/uL (130-450); RED BLOOD COUNT 4.94 10^6/uL (4.20-5.40); RED CELL DISTRIBUTION WIDTH 14.5 % (12.0-15.0)
[2019-06-07 16:34] LABS: ALBUMIN 4.1 g/dL (3.2-5.5); ALBUMIN/GLOBULIN RATIO 1.1 (1.0-2.2); BILIRUBIN,TOTAL 0.6 mg/dL (0.2-1.0); CALCIUM 9.5 mg/dL (8.5-10.3); CREATININE 0.8 mg/dL (0.4-1.0); TOTAL PROTEIN 7.8 g/dL (6.7-8.2)
[2019-06-13 08:11] LABS: ANA SCREEN Positive
== END 2019-06-07 16:09 | disposition home or self-care (01) ==
LOC: LAB 16:08
PROVIDERS: ATTEND Physician Assistant
DX: E89.0 Postprocedural hypothyroidism (principal); M25.50 Pain in unspecified joint
CPT/HCPCS: 36415; 80053; 84443; 85025; 85651; 86038

== ENCOUNTER 2019-06-08 16:41 | Outpatient (CLI) | payer BC, OTHER ==
--- NOTE | 2019-06-09 07:56 | XRAY Report ---
Reason: BILATERAL HIP PAIN Procedure Date: 06/08/2019 Accession Number: [id number] / [id number] Procedure: WCP - Hip BILAT CPT Code: Final Report FULL RESULT: EXAM: BILATERAL HIP RADIOGRAPHY EXAM DATE: 06/08/2019 08:23 AM. CLINICAL HISTORY: BILATERAL HIP PAIN. COMPARISON: None. TECHNIQUE: 2 views each. FINDINGS: Bones: No fracture or bone lesion. Right Hip: No dislocation. Mild degenerative joint disease. Left Hip: No dislocation. Mild degenerative joint disease. Soft Tissues: Grossly unremarkable. IMPRESSION: 1. Mild bilateral degenerative joint disease. RADIA
== END 2019-06-08 23:59 | disposition home or self-care (01) ==
LOC: DI.WCP 16:41
PROVIDERS: ATTEND Physician Assistant
DX: M16.0 Bilateral primary osteoarthritis of hip (principal)
CPT/HCPCS: 73521

== ENCOUNTER 2019-07-03 15:40 | Outpatient (CLI) | payer BC, OTHER ==
--- NOTE | 2019-07-04 08:02 | DEXA Report ---
Reason: POSTMENOPAUSAL Procedure Date: 07/03/2019 Accession Number: [id number] / [id number] Procedure: DEX - Dexa Spine and/or Hip CPT Code: Final Report FULL RESULT: EXAM: Dexa Spine and/or Hip DATE: 07/03/2019 4:32 PM CLINICAL HISTORY: POSTMENOPAUSAL TECHNIQUE: Dual energy x-ray absorptiometry (DXA) was performed on a ip.access System. Regions measured are the AP Spine, femoral neck, and if needed forearm. COMPARISON: None. In accordance with the International Society for Clinical Densitometry (ISCD) guidelines, data from previous exams may be reanalyzed using current recommendations and techniques. This is done to allow a more accurate basis for comparison with the current study. FINDINGS: The data for the lumbar spine is as follows: BMD (g/cm/cm) T-SCORE Z-SCORE REGION L1 0.921 -1.7 -2.3 L2 1.060 -1.2 -1.8 L3 0.970 -1.9 -2.5 L4 0.944 -2.1 -2.7 TOTAL 0.972 -1.7 -2.3 NOTE: All evaluable vertebrae are used for classification The data for the hip is as follows: BMD (g/cm/cm) T-SCORE Z-SCORE REGION Neck 0.960 -0.6 -0.4 TOTAL 1.031 0.2 0.0 NOTE: The femoral neck or total proximal femur, whichever is lowest, is used for classification. IMPRESSION: THE WHO CLASSIFICATION BASED ON THE INTERNATIONAL REFERENCE STANDARD IS OSTEOPENIA. THE FRACTURE RISK IS INCREASED. RECOMMENDATION: Patients with diagnosis of osteoporosis or osteopenia should have regular bone mineral density assessment. For those eligible for Medicare, routine testing is allowed once every 2 years. Testing frequency can be increased for patients who have rapidly progressing disease or for those who are receiving medical therapy to restore bone mass. COMMENT: World Health Organization (WHO) definitions for osteoporosis and osteopenia: NORMAL BMD: T-score at -1.0 or higher, fracture risk is low OSTEOPENIA BMD: T-score between -1.0 and -2.5, fracture risk is increased. OSTEOPOROSIS BMD: T-score at -2.5 or lower, fracture risk is high. National Osteoporosis Foundation recommends: 1. Obtain adequate dietary calcium (at least 1200 mg per day) and vitamin D (400-800 international units per day). 2. Participate, as appropriate, in regular weightbearing and muscle-strengthening exercise. 3. Avoid tobacco use and reduce alcohol and caffeine intake. 4. For more detailed information see the website at www.NOF.org.
== END 2019-07-03 15:41 | disposition home or self-care (01) ==
LOC: DI 15:40
PROVIDERS: ATTEND Physician Assistant
DX: M85.88 Other specified disorders of bone density and structure, other site (principal)
CPT/HCPCS: 77080

== ENCOUNTER 2019-07-03 15:46 | Outpatient (CLI) | payer BC, OTHER ==
--- NOTE | 2019-07-04 08:37 | Mammography Report ---
Reason: SCREENING MAMMO Procedure Date: 07/03/2019 Accession Number: [id number] / [id number] Procedure: GINA - Screening Mammo w/Jeffery CPT Code: Final Report FULL RESULT: EXAM: Screening Mammo w/Jeffery DATE: 07/03/2019 4:19 PM CLINICAL HISTORY: Screening encounter. History of early menses. TECHNIQUE: (B) - Bilateral CC, laterally exaggerated CC, MLO views were obtained. COMPARISON: 05/26/2018 and 09/20/2016. PARENCHYMAL PATTERN: (D) - The breast(s) demonstrate(s) heterogeneously dense fibroglandular parenchyma. FINDINGS: There are no suspicious masses, calcifications, or areas of distortion. IMPRESSION: Negative examination. BI-RADS category 1. RECOMMENDATION: (ANNUAL) - Recommend routine annual screening mammography. BI-RADS CATEGORY: (1) - Negative. STANDARD QUALIFYING STATEMENTS: 1. This examination was not reviewed with the aid of Computer-Aided Detection (CAD). 2. A negative or benign imaging report should not preclude biopsy if clinically suspicious findings are present. 3. Dense breasts may obscure an underlying neoplasm. 4. This examination was reviewed with the aid of 3D breast imaging (tomosynthesis).
== END 2019-07-03 15:47 | disposition home or self-care (01) ==
LOC: DI 15:46
DX: Z12.31 Encounter for screening mammogram for malignant neoplasm of breast (principal)
CPT/HCPCS: 77063; 77067

== ENCOUNTER 2019-07-05 16:04 | Outpatient (CLI) | payer BC, OTHER | END 2019-07-05 16:05 | disposition home or self-care (01) | LOC: LAB 16:04 | PROVIDERS: ATTEND Physician Assistant | DX: E89.0 Postprocedural hypothyroidism (principal) | CPT/HCPCS: 36415; 84443 ==

== ENCOUNTER 2019-07-10 09:57 | Emergency (ER) | payer BC, OTHER ==
--- NOTE | 2019-07-10 11:35 | ED Physician Documentation ---
PD HPI DYSPNEA - Stated complaint Stated Complaint: LOW 02/ELEVATED HR - Chief complaint Chief Complaint: General - History obtained from History obtained from: Patient - History of Present Illness Timing - onset: How many months ago (has had dyspnea and fatigue for 1 1/2 months, with activity. No URI symptoms. No cough per se. Has been feeling more dyspnea and fatigue the past week. Today at work ([facility] [employer]) was walking from front of office back to nurse's station and felt short of breath; had Nurse there check heart rate and O2 sats and BP was elevated at 130s systolic (her usual is about 112 systolic). Suggested to come to ER for evaluation.) Timing - onset during: Light activity, Exertion Timing - duration: Months Timing - details: Waxing and waning Inciting event(s): No: URI, Immobilization/travel Improved by: Rest Worsened by: Exertion. No: Laying flat, Coughing Associated symptoms: Cough (mild nonproductive). No: Fever, Hemoptysis, Wheezing, Palpitations, Bilateral edema Similar symptoms before: No diagnosis Recently seen: Clinic (and had blood tests done. No PFTs. Had positive NAV test so is being referred to [facility] - appt is Jul 20.) Review of Systems Constitutional: reports: Fatigue, Weight Loss. denies: Fever, Chills, Myalgias Nose: denies: Rhinorrhea / runny nose, Congestion Throat: denies: Sore throat Cardiac: denies: Chest pain / pressure, Palpitations Respiratory: reports: Dyspnea. 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 PROCESSOR: None : Kidney stones HEENT: Chronic vision loss, Chronic sinusitis Psych: Anxiety, Panic attacks Musculoskeletal: Fatigue, Chronic back pain Derm: Rosacea, Other - Past Surgical History Past Surgical History: Yes General: Cholecystectomy, Appendectomy /PARTS PROCESSOR: section, Tubal ligation, Hysterectomy - Present Medications Home Medications: Ambulatory Orders Medication Instructions Recorded Confirmed ALPRAZolam [Alprazolam] 0.25 mg PO DAILY PRN 10/24/18 02/04/19 Estradiol [Climara] 1 each TD OAW 10/24/18 02/04/19 Levothyroxine Sodium 50 mcg PO DAILY 10/24/18 02/04/19 Multivitamin [Multiple Vitamins] 1 each PO DAILY 10/24/18 02/04/19 Suvorexant [Belsomra] 10 mg PO QPM PRN 10/24/18 02/04/19 Naproxen 375 mg PO BID #30 tablet 02/04/19 rOPINIRole [Requip] 0.5 mg PO DAILY 02/04/19 02/04/19 EPINEPHrine [Epinephrine] 0.3 mg IJ ONCE PRN #2 auto.injct 03/27/19 predniSONE [Deltasone] 60 mg PO DAILY 3 Days #9 tablet 03/27/19 Albuterol Sulf [Ventolin Hfa 1 - 2 puffs INH Q4HR PRN #1 inhaler 07/10/19 Inhaler] dexAMETHasone [Decadron] 4 mg PO DAILY #7 tablet 07/10/19 - Allergies Allergies/Adverse Reactions: Allergies Allergy/AdvReac Type Severity Reaction Status Date / Time blackberry Allergy Anaphylaxis Verified 07/10/19 10:04 codeine Allergy Unknown Verified 07/10/19 10:04 hydrocodone Allergy Unknown Verified 07/10/19 10:04 meperidine [From Demerol] Allergy Unknown Verified 07/10/19 10:04 oxycodone Allergy Unknown Verified 07/10/19 10:04 raspberry Allergy Anaphylaxis Verified 07/10/19 10:04 - Social History Does the pt smoke?: No Smoking Status: Never smoker Does the pt drink ETOH?: No Does the pt have substance abuse?: No - Immunizations Immunizations are current?: Yes - POLST Patient has POLST: No PD ED PE NORMAL - Vitals Vital signs reviewed: Yes (normal sats here) - General General: Alert and oriented X 3, No acute distress, Well developed/nourished - HEENT HEENT: Ears normal, Pharynx benign - Neck Neck: Supple, no meningeal sign, No adenopathy - Cardiac Cardiac: RRR, No murmur - Respiratory Respiratory: Clear bilaterally - Abdomen Abdomen: Soft, Non tender - Derm Derm: Normal color, Warm and dry - Extremities Extremities: No tenderness to palpate, Normal ROM s pain, No edema, No calf tenderness / cord - Neuro Neuro: Alert and oriented X 3, No motor deficit Eye Opening: Spontaneous Motor: Obeys Commands Verbal: Oriented GCS Score: 15 Results - Vitals Vitals: Vital Signs - 24 hr 07/10/19 07/10/19 07/10/19 10:04 12:00 12:13 Temperature 36.9 C 36.7 C Heart Rate 87 81 80 Respiratory 17 19 18 Rate Blood Pressure 142/84 H 124/84 H 124/84 H O2 Saturation 100 96 100 07/10/19 07/10/19 14:23 14:30 Temperature Heart Rate 85 79 Respiratory 14 20 Rate Blood Pressure 112/77 112/78 O2 Saturation 95 95 Oxygen O2 Source Room air - Labs Labs: Laboratory Tests 07/10/19 07/10/19 07/10/19 11:28 11:28 11:28 WBC 6.4 RBC 4.55 Hgb 13.2 Hct 40.6 MCV 89.2 MCH 29.0 MCHC 32.5 RDW 13.6 Plt Count 231 MPV 11.5 H Neut # (Auto) 3.2 Lymph # (Auto) 2.4 Shannon # (Auto) 0.6 Eos # (Auto) 0.2 Baso # (Auto) 0.0 Absolute Nucleated RBC 0.00 Nucleated RBC % 0.0 D-Dimer Sodium 143 Potassium 3.9 Chloride 109 Carbon Dioxide 26 Anion Gap 8.0 BUN 18 Creatinine 0.8 Estimated GFR (MDRD) 78 L Glucose 87 Calcium 9.3 Total Bilirubin 0.8 AST 27 ALT 27 Alkaline Phosphatase 77 Troponin I High Sens B-Natriuretic Peptide 13 Total Protein 7.2 Albumin 3.9 Globulin 3.3 Albumin/Globulin Ratio 1.2 Lipase 32 07/10/19 07/10/19 11:28 13:50 WBC RBC Hgb Hct MCV MCH MCHC RDW Plt Count MPV Neut # (Auto) Lymph # (Auto) Shannon # (Auto) Eos # (Auto) Baso # (Auto) Absolute Nucleated RBC Nucleated RBC % D-Dimer < 200.0 L Sodium Potassium Chloride Carbon Dioxide Anion Gap BUN Creatinine Estimated GFR (MDRD) Glucose Calcium Total Bilirubin AST ALT Alkaline Phosphatase Troponin I High Sens < 2.3 L B-Natriuretic Peptide Total Protein Albumin Globulin Albumin/Globulin Ratio Lipase - Rads (name of study) chest xray Radiology: Prelim report reviewed (no acute process), See rad report ECHO Radiology: Prelim report reviewed (normal), See rad report PD MEDICAL DECISION MAKING - ED course Complexity details: reviewed old records, reviewed results, considered differential (sats are good here and CXR, ECHO, trop, BNP, d-dimer, CBC and chemistry are all good. ), d/w patient Departure - Departure Disposition: 01 Home, Self Care Clinical Impression: Dyspnea on effort Condition: Stable Record reviewed to determine appropriate education?: Yes Instructions: ED Dyspnea Shortness of Breath Follow-Up: Raya Guevara PA [Primary Care Provider] - Prescriptions: Albuterol Sulf [Ventolin Hfa Inhaler] 1 - 2 puffs INH Q4HR PRN #1 inhaler PRN Reason: Shortness Of Air/Wheezing dexAMETHasone [Decadron] 4 mg PO DAILY #7 tablet Comments: Your tests here appear normal. These include blood count and electrolytes, blood tests to screen for heart failure, heart muscle injury and blood clots, chest x-ray, echocardiogram. Your primary care should be able to reference these results. At this point I would suggest trying some Decadron steroid for presumed inflammation through the airways and an albuterol inhaler 2 puffs 4 times a day and extra times if needed for trouble breathing. See if you have improvement with these over the next several days to week. Follow-up with your primary care and also with the planned professor of medicine referral. Discharge Date/Time: 07/10/19 15:18
[2019-07-10 11:40] LABS: BASOPHILS % (AUTO) 0.3 %; EOSINOPHILS # (AUTO) 0.2 10^3/uL (0.0-0.7); EOSINOPHILS % (AUTO) 2.7 %; HGB - HEMOGLOBIN 13.2 g/dL (12.0-16.0); LYMPHOCYTES # (AUTO) 2.4 10^3/uL (1.5-3.5); LYMPHOCYTES % (AUTO) 37.7 %; MEAN CORPUSCULAR HGB CONC 32.5 g/dL (32.0-36.0); MEAN CORPUSCULAR VOLUME 89.2 fL (81.0-99.0); MEAN PLATELET VOLUME 11.5 fL (7.9-10.8); MONOCYTES # (AUTO) 0.6 10^3/uL (0.0-1.0); MONOCYTES % (AUTO) 9.2 %; NEUTROPHILS # (AUTO) 3.2 10^3/uL (1.5-6.6); NEUTROPHILS % (AUTO) 49.9 %; PLT - PLATELET COUNT 231 10^3/uL (130-450); RED BLOOD COUNT 4.55 10^6/uL (4.20-5.40); RED CELL DISTRIBUTION WIDTH 13.6 % (12.0-15.0); WHITE BLOOD COUNT 6.4 x10^3/uL (4.8-10.8)
[2019-07-10 11:54] LABS: ALBUMIN 3.9 g/dL (3.2-5.5); ALBUMIN/GLOBULIN RATIO 1.2 (1.0-2.2); BILIRUBIN,TOTAL 0.8 mg/dL (0.2-1.0); CALCIUM 9.3 mg/dL (8.5-10.3); CREATININE 0.8 mg/dL (0.4-1.0); TOTAL PROTEIN 7.2 g/dL (6.7-8.2)
--- NOTE | 2019-07-10 12:26 | XRAY Report ---
Reason: heart racing Procedure Date: 07/10/2019 Accession Number: [id number] / [id number] Procedure: XR - Chest 1 View X-Ray CPT Code: 73942 Final Report FULL RESULT: EXAM: CHEST RADIOGRAPHY 1 VIEW EXAM DATE: 07/10/2019. CLINICAL HISTORY: Heart racing. COMPARISON: Abdomen and pelvis CT done 08/28/2018. TECHNIQUE: AP upright portable chest at 1136. FINDINGS: Lungs/Pleura: Normal vasculature. The lungs are clear. No pleural fluid or pneumothorax. Mediastinum: Heart size is normal. 7 cm hiatal hernia. Otherwise normal mediastinal contours. Bones: Normal. IMPRESSION: 7 cm hiatal hernia, unchanged from an abdomen and pelvis CT done 08/28/2018. Otherwise normal examination. RADIA
[2019-07-10] MEDS ORDERED: DEXAMETHASONE 10 MG/ML VIAL IVP STA (14:17)
[2019-07-10] MEDS ORDERED: KETOROLAC 30 MG/ML VIAL IVP STA (14:17)
[2019-07-10 14:50] VITALS: BP 112/78
== END 2019-07-10 15:18 | disposition home or self-care (01) ==
LOC: ED 09:57
DX: R06.00 Dyspnea, unspecified (principal)
CPT/HCPCS: 36415; 71045; 80053; 83690; 83880; 84484; 85025; 85379; 93005; 93306; 96374; 99283

== ENCOUNTER 2019-07-24 13:35 | Outpatient (CLI) | payer BC, OTHER | END 2019-07-24 23:59 | disposition home or self-care (01) | LOC: LAB.WCP 13:35 | PROVIDERS: ATTEND Physician Assistant | DX: E89.0 Postprocedural hypothyroidism (principal) | CPT/HCPCS: 36415; 84443 ==

== ENCOUNTER 2019-07-29 09:10 | Outpatient (CLI) | payer BC, OTHER ==
[~2019-07-29 09:10] MED LIST changes: +ALBUTEROL NEB 2.5 MG/3 ML INH SCH; -predniSONE 20 MG TABLET PO STA
== END 2019-07-29 09:11 | disposition home or self-care (01) ==
LOC: RT 09:10
PROVIDERS: ATTEND Physician Assistant
DX: R06.02 Shortness of breath (principal)
CPT/HCPCS: 94010

== ENCOUNTER 2019-08-30 12:11 | Day surgery (SDC) | payer BC, OTHER ==
[2019-08-30] MEDS ORDERED: fentaNYL 250 MCG/5 ML VIAL IVP ONE (12:12)
[2019-08-30] MEDS ORDERED: MIDAZOLAM 2 MG/2 ML VIAL IVP ONE (12:12)
[2019-08-30] MEDS ORDERED: LACTATED RINGERS 1,000 ML IV ONE (12:28)
[2019-08-30] MEDS ORDERED: SCOPOLAMINE PATCH TOP ONE (12:59)
[2019-08-30] MEDS ORDERED: LIDO GARGLE 30 ML BOTTLE ONE (13:45)
[2019-08-30] MEDS ORDERED: LIDO GARGLE 30 ML BOTTLE PO ONE (13:50)
[2019-08-30 15:39] VITALS: BP 118/89
== END 2019-08-30 12:12 | disposition home or self-care (01) ==
LOC: SDS 12:11
PROVIDERS: ATTEND Surgery
PROC: 0DB68ZX Excision of Stomach, Via Natural or Artificial Opening Endoscopic, Diagnostic (ICD-10-PCS; 2019-08-30)
PROC: 0DB48ZX Excision of Esophagogastric Junction, Via Natural or Artificial Opening Endoscopic, Diagnostic (ICD-10-PCS; 2019-08-30)
PROC: 0DBE8ZX Excision of Large Intestine, Via Natural or Artificial Opening Endoscopic, Diagnostic (ICD-10-PCS; principal; 2019-08-30 13:30)
PROC: 0DB98ZX Excision of Duodenum, Via Natural or Artificial Opening Endoscopic, Diagnostic (ICD-10-PCS; 2019-08-30 13:30)
DX: R11.2 Nausea with vomiting, unspecified (principal); R19.4 Change in bowel habit; R10.10 Upper abdominal pain, unspecified; K44.9 Diaphragmatic hernia without obstruction or gangrene; K21.9 Gastro-esophageal reflux disease without esophagitis; K29.60 Other gastritis without bleeding; K64.8 Other hemorrhoids; K57.30 Diverticulosis of large intestine without perforation or abscess without bleeding; K56.41 Fecal impaction; E66.9 Obesity, unspecified; Z68.32 Body mass index [BMI] 32.0-32.9, adult
CPT/HCPCS: 43239; 45380; 83630; 87015; 87177; 87209; 87272; 87329; 87493; A9270; J3010; J3490; J7120

== ENCOUNTER 2019-10-03 10:31 | Outpatient (CLI) | payer BC, OTHER ==
[2019-10-03] MEDS ORDERED: IOVERSOL 320 50 ML VIAL ONE (10:39)
[2019-10-03] MEDS ORDERED: IOVERSOL 320 100 ML VIAL IVP ONE ×2 (10:39→13:05)
[2019-10-03] MEDS ORDERED: IOVERSOL 320 50 ML VIAL PO ONE (13:05)
--- NOTE | 2019-10-05 02:09 | CT Report ---
Reason: HIATAL HERNIA W/GERD AND ESOPHAGILITIS Procedure Date: 10/03/2019 Accession Number: [id number] / [id number] Procedure: CT - Abdomen/Pelvis W CPT Code: Final Report FULL RESULT: EXAM: CT CHEST CT ABDOMEN AND PELVIS EXAM DATE: 10/03/2019 11:52 AM CLINICAL HISTORY: Hiatal hernia with GERD and esophagitis. COMPARISONS: ABDOMEN/PELVIS W/O 08/28/2018 6:04 PM, CHEST W/ 10/03/2019 11:52 AM. TECHNIQUE: 1. Routine helical CT imaging was performed through the chest. IV contrast: 100 mL Optiray 320. Enteric contrast: No. Reconstructions: Coronal and sagittal. 2. Routine helical CT imaging was performed through the abdomen and pelvis. IV contrast: 100 mL Optiray 320. Enteric contrast: No. Reconstructions: Coronal and sagittal. In accordance with CT protocol optimization, one or more of the following dose reduction techniques were utilized for this exam: automated exposure control, adjustment of mA and/or KV based on patient size, or use of iterative reconstructive technique. FINDINGS: CHEST: Lungs/Pleura: No infiltrates. No pleural effusions or pneumothorax. No suspicious nodules or masses. Thoracic Aorta: Unremarkable. Pulmonary Arteries: Within normal limits. Mediastinum: Heart size within normal limits. No pericardial effusions. No mediastinal or hilar lymphadenopathy. Moderate to large paraesophageal hiatal hernia containing the fundus of the stomach. Minimal wall thickening involving the distal most esophagus. Bones: Unremarkable. Chest Wall: Unremarkable. ABDOMEN/PELVIS: Liver: Focal fatty infiltration in segment-4B of the liver. No suspicious hepatic masses. Gallbladder/Bile Ducts: Surgically absent gallbladder. No intrahepatic or extrahepatic biliary ductal dilatation. Spleen: Normal. Pancreas: Normal. Adrenal Glands: Normal. Kidneys: Multiple areas of renal cortical scarring bilaterally. Two nonobstructing left intrarenal stones with the larger stone in the upper collecting system measuring 4 mm in diameter. Mild left-sided hydronephrosis. Two adjacent obstructing stones in the mid left ureter measuring up to 5.5 mm in the axial plane. The two stones together measure up to 9.5 mm in the craniocaudal dimension. Mild right-sided hydronephrosis. Obstructing stone in the mid right ureter measuring 5 mm in the axial plane and 6 mm in the craniocaudal dimension. Peritoneal Cavity/Bowel: Normal caliber of the bowel without evidence of obstruction. No focal bowel wall thickening or inflammation. Appendix: Appendix not visualized with certainty. No inflammatory changes in the right lower quadrant. Pelvic Organs: Urinary bladder unremarkable. Surgically absent uterus. No adnexal masses. Vasculature: No aneurysms or other significant abnormality. Bones: No significant abnormality. Other: None. IMPRESSION: CHEST: 1. Moderate to large paraesophageal hiatal hernia containing the fundus of the stomach. 2. Minimal distal esophageal wall thickening which can be seen with esophagitis. 3. Otherwise, no acute findings in the chest. ABDOMEN/PELVIS: 1. Two adjacent obstructing stones in the mid left ureter measuring up to 5.5 mm in the axial plane. The two stones together measure up to 9.5 mm in the craniocaudal dimension. This is associated with mild left-sided hydronephrosis. 2. Obstructing stone in the mid right ureter measuring 5 mm in the axial plane and 6 mm in the craniocaudal dimension. This is associated with mild right-sided hydronephrosis. 3. No other acute findings in the abdomen or pelvis. 4. Two nonobstructing left intrarenal stones with the larger stone in the upper collecting system measuring 4 mm in diameter. RADIA
== END 2019-10-03 10:32 | disposition home or self-care (01) ==
LOC: DI 10:31
PROVIDERS: ATTEND Surgery
DX: K44.9 Diaphragmatic hernia without obstruction or gangrene (principal); K21.0 Gastro-esophageal reflux disease with esophagitis; N13.2 Hydronephrosis with renal and ureteral calculous obstruction
CPT/HCPCS: 71260; 74177; 74220; A9270; Q9967

== ENCOUNTER 2019-10-03 12:38 | Outpatient (CLI) | payer BC, OTHER ==
[2019-10-03] MEDS ORDERED: BARIUM SULFATE 135 ML BOTTLE PO ONE (13:46)
[2019-10-03] MEDS ORDERED: SIMETHICONE/SOD BICARB/CIT AC 1 EACH PACKET PO ONE (13:46)
[2019-10-03] MEDS ORDERED: BARIUM SULFATE 148 GM POWDER PO ONE (13:46)
[2019-10-03] MEDS ORDERED: BARIUM SULFATE 700 MG TABLET PO ONE (13:46)
--- NOTE | 2019-10-03 14:10 | XRAY Report ---
Reason: HIATAL HERNIA W/GERD AND ESOPHAGILITIS Procedure Date: 10/03/2019 Accession Number: [id number] / [id number] Procedure: FL - Esophogram CPT Code: Final Report FULL RESULT: EXAM: BARIUM ESOPHAGRAM EXAM DATE: 10/03/2019 12:59 PM. CLINICAL HISTORY: Hiatal hernia with GERD and esophagitis. COMPARISONS: None. TECHNIQUE: Routine double contrast esophagram. Fluoroscopy Time: 1 minute 10 seconds. Number of Images: 16. FINDINGS: Swallowing Mechanism: Not evaluated, study is tailored towards the anatomy and functional implications of the paraesophageal hernia. Esophageal Motility: Normal peristaltic stripping wave. Mucosa: Normal. No ulcerations or masses. Gastroesophageal Junction: The known paraesophageal hernia is demonstrated, at least moderate in size. Partially, a very small sliding hiatal hernia is also present. There is no holdup of barium or the barium tablet in the lower esophagus or gastroesophageal junction. Other: Configuration of proximal duodenum and ligament of Treitz normal relationship. The greater and lesser curvatures of the stomach appear to be underneath the diaphragm with the paraesophageal hernia predominantly composed of gastric cardia. IMPRESSION: Anatomic configuration of paraesophageal hernia without significant holdup of barium as described. RADIA
== END 2019-10-03 12:39 | disposition home or self-care (01) ==
LOC: DI 12:38
PROVIDERS: ATTEND Surgery
DX: K44.9 Diaphragmatic hernia without obstruction or gangrene (principal); K21.0 Gastro-esophageal reflux disease with esophagitis
CPT/HCPCS: 74220

== ENCOUNTER 2019-10-04 08:47 | Outpatient (CLI) | payer BC, OTHER ==
--- NOTE | 2019-10-05 14:42 | Nuclear Medicine Report ---
Reason: HIATAL HERNIA W/GERD AND ESOPHAGILITIS Procedure Date: 10/04/2019 Accession Number: [id number] / [id number] Procedure: NM - Gastric Empty Small Bowel CPT Code: Final Report FULL RESULT: EXAM: GASTRIC EMPTYING STUDY EXAM DATE: 10/04/2019 08:55 AM. CLINICAL HISTORY: Hiatal hernia w/GERD and esophagitis. COMPARISON: None. TECHNIQUE: A standard meal was radiolabeled with 1 mCi Tc-99m sulfur colloid according to protocol. Following the p.o. administration of this meal, the patient underwent multiple static images over the abdomen from the anterior and posterior projections, at approximately 0, 1, 2, and 3, 4 hours following the ingestion of the meal. Region of interest analysis was employed, and percent emptied/percent remaining of the meal was calculated using both the geometric mean and decay corrections. FINDINGS: Calculations demonstrate: TIME (hours) Percent remaining. Normal values for percent remaining. 1 hour: 12.7% (30-90%) 2 hours: 7.9% (0-60%) 3 hours: 3.6% (0-30%) 4 hours: 2.1% (0-10%) IMPRESSION: Rapid gastric emptying. RADIA
== END 2019-10-04 08:48 | disposition home or self-care (01) ==
LOC: DI 08:47
PROVIDERS: ATTEND Surgery
DX: K44.9 Diaphragmatic hernia without obstruction or gangrene (principal); K21.0 Gastro-esophageal reflux disease with esophagitis; R10.84 Generalized abdominal pain
CPT/HCPCS: 78265

== ENCOUNTER 2019-10-27 19:43 | Emergency (ER) | payer BC, OTHER ==
[2019-10-27] MEDS ORDERED: SODIUM CHLORIDE 0.9% 1,000 ML IV ONE (20:01)
[2019-10-27] MEDS ORDERED: ONDANSETRON 4 MG/2 ML VIAL IVP STA (20:01)
[2019-10-27] MEDS ORDERED: HYDROmorphone 1 MG/ML CARPUJECT IVP STA ×2 (20:02→21:02)
[2019-10-27] MEDS ORDERED: KETOROLAC 30 MG/ML VIAL IVP STA (20:02)
[2019-10-27 20:03] LABS: BILIRUBIN,URINE NEGATIVE (NEGATIVE); GLUCOSE, URINE (UA) NEGATIVE (NEGATIVE); KETONES,URINE (UA) NEGATIVE (NEGATIVE); LEUKOCYTE ESTERASE, URINE NEGATIVE (NEGATIVE); NITRITE,URINE NEGATIVE (NEGATIVE); OCCULT BLOOD,URINE LARGE (NEGATIVE); PROTEIN,URINE 30 mg/dL (NEGATIVE); UROBILINOGEN,URINE 0.2 (NORMAL) E.U./dL (NORMAL)
[2019-10-27 20:05] LABS: CLARITY,URINE CLEAR (CLEAR); HCG UR QUAL NEGATIVE
--- NOTE | 2019-10-27 20:07 | ED Physician Documentation ---
PD HPI ABD PAIN - Stated complaint Stated Complaint: BACK PX, NAUSEA, F - Chief complaint Chief Complaint: Abd Pain - History obtained from History obtained from: Patient - History of Present Illness Timing - onset: Other (44-year-old woman had severe sudden onset right flank pain radiating to her right lower quadrant earlier this evening that was unrelieved by taking some leftover morphine at home. She denies urinary complaints or fevers. She is slightly nauseous but is always nauseous. She had a CT done, it was preoperative for perioperative esophageal hernia repair. It was about 3 weeks ago. Incidental findings were bilateral ureteral lifts including an obstructing stone in the right mid ureter measuring 5 mm x 6 mm. She was not aware of this finding. She also had 2 adjacent stones in the left mid ureter.) Review of Systems Ten Systems: 10 systems reviewed and negative Constitutional: denies: Fever, Chills Cardiac: reports: Reviewed and negative Respiratory: reports: Reviewed and negative PD PAST MEDICAL HISTORY - Past Medical History Cardiovascular: None Respiratory: None Neuro: None Endocrine/Autoimmune: HyPOthyroidism GI: Hiatal hernia PERIANESTHESIA RN: None : Kidney stones HEENT: Chronic vision loss, Chronic sinusitis Psych: Anxiety, Panic attacks Musculoskeletal: Fatigue, Chronic back pain Derm: Rosacea, Other - Past Surgical History Past Surgical History: Yes General: Cholecystectomy, Appendectomy /PERIANESTHESIA RN: section, Tubal ligation, Hysterectomy - Present Medications Home Medications: Ambulatory Orders Medication Instructions Recorded Confirmed ALPRAZolam [Alprazolam] 0.25 mg PO DAILY PRN 10/24/18 08/30/19 rOPINIRole [Requip] 0.5 mg PO DAILY 02/04/19 08/30/19 EPINEPHrine [Epinephrine] 0.3 mg IJ ONCE PRN #2 auto.injct 03/27/19 08/30/19 Albuterol Sulf [Ventolin Hfa 1 - 2 puffs INH Q4HR PRN #1 inhaler 07/10/19 08/30/19 Inhaler] Cyclobenzaprine [Flexeril] 10 mg PO PRN PRN 08/30/19 08/30/19 DULoxetine [Cymbalta] 30 mg PO DAILY 08/30/19 08/30/19 Potassium Citrate [Potassium 5 meq PO DAILY 08/30/19 08/30/19 Citrate ER] Thyroid [[place] Thyroid] 60 mg PO DAILY 08/30/19 08/30/19 hydrOXYzine HCL [Hydroxyzine HCl] 25 mg PO DAILY 08/30/19 08/30/19 HYDROmorphone [Dilaudid] 1 - 2 mg PO Q6H PRN #15 tablet 10/27/19 Ondansetron Odt [Zofran] 4 mg TL Q6H PRN #20 tablet 10/27/19 Tamsulosin [Flomax] 0.4 mg PO DAILY #14 capsule 10/27/19 - Allergies Allergies/Adverse Reactions: Allergies Allergy/AdvReac Type Severity Reaction Status Date / Time blackberry Allergy Anaphylaxis Verified 10/27/19 19:52 codeine Allergy Unknown Verified 10/27/19 19:52 hydrocodone Allergy Unknown Verified 10/27/19 19:52 meperidine [From Demerol] Allergy Unknown Verified 10/27/19 19:52 oxycodone Allergy Unknown Verified 10/27/19 19:52 raspberry Allergy Anaphylaxis Verified 10/27/19 19:52 - Social History Does the pt smoke?: No Smoking Status: Never smoker Does the pt drink ETOH?: No Does the pt have substance abuse?: No - Immunizations Immunizations are current?: Yes - POLST Patient has POLST: No PD ED PE NORMAL - Vitals Vital signs reviewed: Yes - General General: Alert and oriented X 3, No acute distress - Abdomen Abdomen: Soft, Non tender (Modest right flank and right lower quadrant tenderness without surgical signs, note she is status post remote appendectomy.) - Derm Derm: Normal color, Warm and dry - Extremities Extremities: No edema, No calf tenderness / cord - Neuro Neuro: Alert and oriented X 3, Normal speech Results - Vitals Vitals: Vital Signs - 24 hr 10/27/19 19:48 Temperature 36.6 C Heart Rate 91 Respiratory 18 Rate Blood Pressure 140/88 H O2 Saturation 96 Oxygen O2 Source Room air - Labs Labs: Laboratory Tests 10/27/19 10/27/19 10/27/19 19:57 20:20 20:20 WBC 13.5 H RBC 5.01 Hgb 14.6 Hct 43.9 MCV 87.6 MCH 29.1 MCHC 33.3 RDW 13.4 Plt Count 259 MPV 11.3 H Neut # (Auto) 9.2 H Lymph # (Auto) 3.1 Henry # (Auto) 0.9 Eos # (Auto) 0.2 Baso # (Auto) 0.1 Absolute Nucleated RBC 0.00 Nucleated RBC % 0.0 Sodium 139 Potassium 3.4 L Chloride 106 Carbon Dioxide 22 Anion Gap 11.0 BUN 17 Creatinine 1.0 Estimated GFR (MDRD) 61 L Glucose 149 H Calcium 9.3 Total Bilirubin 0.5 AST 23 ALT 24 Alkaline Phosphatase 80 Total Protein 7.9 Albumin 4.3 Globulin 3.6 Albumin/Globulin Ratio 1.2 Lipase 33 Urine Color YELLOW Urine Clarity CLEAR Urine pH 5.0 Ur Specific [place] >=1.030 H Urine Protein 30 H Urine Glucose (UA) NEGATIVE Urine Ketones NEGATIVE Urine Occult Blood LARGE H Urine Nitrite NEGATIVE Urine Bilirubin NEGATIVE Urine Urobilinogen 0.2 (NORMAL) Ur Leukocyte Esterase NEGATIVE Urine RBC 11-25 H Urine WBC 0-3 Ur Squamous Epith Cells MOD Squamous H Urine Bacteria Rare Urine Mucus Few Strands Ur Microscopic Review INDICATED Urine Culture Comments NOT INDICATED Urine HCG, Qual NEGATIVE PD MEDICAL DECISION MAKING - ED course ED course: 44-year-old woman with known bilateral ureterolithiasis based on a CT from about 3 weeks ago presents with right flank pain radiating to the right lower quadrant consistent with renal colic. Thankfully her renal function is normal and her pain was not too hard to control with IV meds here. She will follow-up with her urologist. She is given a copy of her CAT scan on a CD and the report to aid. Departure - Departure Disposition: 01 Home, Self Care Clinical Impression: Renal colic on right side Condition: Good Record reviewed to determine appropriate education?: Yes Instructions: ED Stone Renal W Colic Prescriptions: HYDROmorphone [Dilaudid] 1 - 2 mg PO Q6H PRN #15 tablet PRN Reason: Pain Ondansetron Odt [Zofran] 4 mg TL Q6H PRN #20 tablet PRN Reason: Nausea / Vomiting Tamsulosin [Flomax] 0.4 mg PO DAILY #14 capsule Comments: Follow-up with your urologist with a copy of the CAT scan for bilateral ureteral lifts of decent size. Return for new or worsening symptoms. Drink plenty fluids. Do not get up too fast while on the Flomax, will make you dizzy. Do not drink or drive while taking narcotic pain medication. Note that many narcotic pain relievers also contain Tylenol/acetaminophen. Please ensure that your total dose of acetaminophen from all sources does not exceed 3 g (3000 mg) per day. You may get constipated while on this medication. Take a stool softener such as Colace twice a day while you are on it. Also add an bjik-kpa-nuxavyc laxative such as senna or MiraLAX on any day that you do not have a bowel movement. If you received a narcotic pain medication or sedative while in the emergency department, do not drive for the next 24 hours.
[2019-10-27 20:13] LABS: BACTERIA,URINE Rare /HPF (None Seen); MUCUS,URINE Few Strands; SQUAMOUS EPITHELIAL CELL,UR MOD Squamous (<= Few)
[2019-10-27 20:36] LABS: BASOPHILS # (AUTO) 0.1 10^3/uL (0.0-0.1); BASOPHILS % (AUTO) 0.4 %; EOSINOPHILS # (AUTO) 0.2 10^3/uL (0.0-0.7); EOSINOPHILS % (AUTO) 1.2 %; HGB - HEMOGLOBIN 14.6 g/dL (12.0-16.0); LYMPHOCYTES # (AUTO) 3.1 10^3/uL (1.5-3.5); MEAN CORPUSCULAR HEMOGLOBIN 29.1 pg (27.0-31.0); MEAN CORPUSCULAR HGB CONC 33.3 g/dL (32.0-36.0); MEAN CORPUSCULAR VOLUME 87.6 fL (81.0-99.0); MEAN PLATELET VOLUME 11.3 fL (7.9-10.8); MONOCYTES # (AUTO) 0.9 10^3/uL (0.0-1.0); MONOCYTES % (AUTO) 6.9 %; NEUTROPHILS # (AUTO) 9.2 10^3/uL (1.5-6.6); NEUTROPHILS % (AUTO) 67.9 %; PLT - PLATELET COUNT 259 10^3/uL (130-450); RED BLOOD COUNT 5.01 10^6/uL (4.20-5.40); RED CELL DISTRIBUTION WIDTH 13.4 % (12.0-15.0); WHITE BLOOD COUNT 13.5 x10^3/uL (4.8-10.8)
[2019-10-27 20:46] LABS: ALBUMIN 4.3 g/dL (3.2-5.5); ALBUMIN/GLOBULIN RATIO 1.2 (1.0-2.2); BILIRUBIN,TOTAL 0.5 mg/dL (0.2-1.0); CALCIUM 9.3 mg/dL (8.5-10.3); TOTAL PROTEIN 7.9 g/dL (6.7-8.2)
[2019-10-27] MEDS ORDERED: ONDANSETRON ODT 4 MG Prepack 2 TL STA (21:02)
[2019-10-27] MEDS ORDERED: TAMSULOSIN 0.4 MG CAPSULE PO STA (21:03)
[2019-10-27 21:45] VITALS: BP 144/80
== END 2019-10-27 21:43 | disposition home or self-care (01) ==
LOC: ED 19:43
DX: N20.2 Calculus of kidney with calculus of ureter (principal)
CPT/HCPCS: 36415; 80053; 81001; 81025; 83690; 85025; 96361; 96374; 96376; 99283; 99284; A9270; J1170; 81003; 87086

== ENCOUNTER 2019-10-28 20:12 | Emergency (ER) | payer BC, OTHER ==
[2019-10-28] MEDS ORDERED: KETOROLAC 30 MG/ML VIAL IVP STA (20:48)
[2019-10-28] MEDS ORDERED: SODIUM CHLORIDE 0.9% 1,000 ML IV ONE ×2 (20:48→22:20)
[2019-10-28] MEDS ORDERED: ONDANSETRON 4 MG/2 ML VIAL IVP STA (20:48)
[2019-10-28 21:27] LABS: BASOPHILS % (AUTO) 0.4 %; EOSINOPHILS # (AUTO) 0.1 10^3/uL (0.0-0.7); EOSINOPHILS % (AUTO) 0.9 %; HGB - HEMOGLOBIN 13.3 g/dL (12.0-16.0); LYMPHOCYTES # (AUTO) 1.9 10^3/uL (1.5-3.5); LYMPHOCYTES % (AUTO) 22.8 %; MEAN CORPUSCULAR HGB CONC 32.9 g/dL (32.0-36.0); MEAN CORPUSCULAR VOLUME 88.2 fL (81.0-99.0); MEAN PLATELET VOLUME 11.3 fL (7.9-10.8); MONOCYTES # (AUTO) 0.7 10^3/uL (0.0-1.0); MONOCYTES % (AUTO) 7.9 %; NEUTROPHILS # (AUTO) 5.7 10^3/uL (1.5-6.6); NEUTROPHILS % (AUTO) 67.5 %; PLT - PLATELET COUNT 226 10^3/uL (130-450); RED BLOOD COUNT 4.58 10^6/uL (4.20-5.40); RED CELL DISTRIBUTION WIDTH 13.6 % (12.0-15.0); WHITE BLOOD COUNT 8.5 x10^3/uL (4.8-10.8)
[2019-10-28 21:40] LABS: ALBUMIN 4.2 g/dL (3.2-5.5); ALBUMIN/GLOBULIN RATIO 1.2 (1.0-2.2); BILIRUBIN,TOTAL 0.8 mg/dL (0.2-1.0); CALCIUM 9.1 mg/dL (8.5-10.3); CREATININE 1.3 mg/dL (0.4-1.0); TOTAL PROTEIN 7.8 g/dL (6.7-8.2)
--- NOTE | 2019-10-28 21:56 | CT Report ---
Reason: abdominal pain/stone Procedure Date: 10/28/2019 Accession Number: [id number] / [id number] Procedure: CT - Abdomen/Pelvis WO CPT Code: Final Report FULL RESULT: EXAM: CT ABDOMEN AND PELVIS (CT KUB) EXAM DATE: 10/28/2019 09:10 PM. CLINICAL HISTORY: Abdominal pain/stone. COMPARISONS: ABDOMEN/PELVIS W/O 08/28/2018 6:04 PM ABDOMEN/PELVIS W/ 10/03/2019 11:52 AM. TECHNIQUE: Routine axial helical CT imaging was performed through the abdomen and pelvis without IV contrast. Reconstructions: Coronal and sagittal. In accordance with CT protocol optimization, one or more of the following dose reduction techniques were utilized for this exam: automated exposure control, adjustment of mA and/or KV based on patient size, or use of iterative reconstructive technique. FINDINGS: Lung Bases: Moderate size hiatal hernia. Lung bases are otherwise clear. No effusions. Right Kidney/Ureter: 5 mm stone at the right ureterovesical junction with mild to moderate [id number]-lbxopvvtp. This stone has migrated from the mid right ureter from the October 02 exam. Two other punctate calcifications and calyces are present as well, one in a lower pole, one in an upper pole. Some mild renal cortical scarring. Minimal perirenal changes. Left Kidney/Ureter: Ovoid 6 mm stone in the distal left ureter, at the mid pelvis, image 108. This stone has migrated approximately 10 cm since the prior exam. Mild to moderate left hydroureteronephrosis. 4 mm stone in a pole calyx on the left as well. No perirenal changes. Other Solid Organs: Noncontrast images of the solid organs are grossly unremarkable. Gallbladder/Bile Ducts: Status post cholecystectomy. Peritoneal Cavity: No free fluid, free air or yves adenopathy. Bowel is grossly unremarkable. Appendix is not identified. Pelvic Organs: Urinary bladder is collapsed. No stones that are definitely within the lumen of the bladder. Patient is status post hysterectomy. Vasculature: Unremarkable. Other: None. IMPRESSION: Distal migration of bilateral ureteral calculi, with increasing bilateral hydronephrosis, mild to moderate in degree. RADIA The call report notification system was initiated by Dr. Dexter Jarrell at 09:45 PM on 10/28/2019.
[2019-10-28] MEDS ORDERED: PROMETHAZINE INJ 25 MG in SODIUM CHLORIDE 0.9% 50 ML IV STA (22:20)
[2019-10-28 23:51] LABS: CREATININE 1.1 mg/dL (0.4-1.0)
--- NOTE | 2019-10-29 00:01 | ED Physician Documentation ---
History of Present Illness - Stated complaint Stated Complaint: ABD PX - Chief complaint Chief Complaint: Abd Pain - History obtained from History obtained from: Patient - Additonal information Additional information: Patient comes emergency department complaining of lower abdominal pain, worse on the right. She is also been vomiting all day. Patient states that she just found out yesterday that she has kidney stones coming down on both sides, based on a CT scan done 3 weeks ago. She states she was never informed of the stones, and that Dr. Hickman just told her about this finding yesterday after reviewing her old records. Patient states she has been having some blood in her urine. She denies any fevers or chills. No dysuria. She states that she has had difficulty sleeping secondary to pain. She has been using oral Dilaudid at home which has helped somewhat, but that her Zofran is not helping with the nausea. The patient originally had The October 02 CT scan done as part of an evaluation by surgery for a hiatal hernia. Patient states she is post of the hernia repaired, but that the surgery center had to close down due to coronavirus. The stones were found incidentally. Patient denies any respiratory symptoms. No other complaints at this time. Review of Systems Ten Systems: 10 systems reviewed and negative Constitutional: reports: Reviewed and negative Eyes: reports: Reviewed and negative Ears: reports: Reviewed and negative Nose: reports: Reviewed and negative Throat: reports: Reviewed and negative Cardiac: reports: Reviewed and negative Respiratory: reports: Reviewed and negative GI: reports: Abdominal Pain, Nausea, Vomiting : reports: Hematuria Skin: reports: Reviewed and negative Musculoskeletal: reports: Reviewed and negative Neurologic: reports: Reviewed and negative Psychiatric: reports: Reviewed and negative Endocrine: reports: Reviewed and negative Immunocompromised: reports: Reviewed and negative PD PAST MEDICAL HISTORY - Past Medical History Past Medical History: Yes Cardiovascular: None Respiratory: None Neuro: None Endocrine/Autoimmune: HyPOthyroidism GI: Hiatal hernia VETERANS ADVISER: None : Kidney stones HEENT: Chronic vision loss, Chronic sinusitis Psych: Anxiety, Panic attacks Musculoskeletal: Fatigue, Chronic back pain Derm: Rosacea, Other - Past Surgical History Past Surgical History: Yes General: Cholecystectomy, Appendectomy /VETERANS ADVISER: section, Tubal ligation, Hysterectomy - Present Medications Home Medications: Ambulatory Orders Medication Instructions Recorded Confirmed ALPRAZolam [Alprazolam] 0.25 mg PO DAILY PRN 10/24/18 08/30/19 rOPINIRole [Requip] 0.5 mg PO DAILY 02/04/19 08/30/19 EPINEPHrine [Epinephrine] 0.3 mg IJ ONCE PRN #2 auto.injct 03/27/19 08/30/19 Albuterol Sulf [Ventolin Hfa 1 - 2 puffs INH Q4HR PRN #1 inhaler 07/10/19 08/30/19 Inhaler] Cyclobenzaprine [Flexeril] 10 mg PO PRN PRN 08/30/19 08/30/19 DULoxetine [Cymbalta] 30 mg PO DAILY 08/30/19 08/30/19 Potassium Citrate [Potassium 5 meq PO DAILY 08/30/19 08/30/19 Citrate ER] Thyroid [[place] Thyroid] 60 mg PO DAILY 08/30/19 08/30/19 hydrOXYzine HCL [Hydroxyzine HCl] 25 mg PO DAILY 08/30/19 08/30/19 HYDROmorphone [Dilaudid] 1 - 2 mg PO Q6H PRN #15 tablet 10/27/19 Ondansetron Odt [Zofran] 4 mg TL Q6H PRN #20 tablet 10/27/19 Tamsulosin [Flomax] 0.4 mg PO DAILY #14 capsule 10/27/19 Promethazine [Phenergan] 25 mg PO Q6H PRN #10 tab 10/29/19 - Allergies Allergies/Adverse Reactions: Allergies Allergy/AdvReac Type Severity Reaction Status Date / Time blackberry Allergy Anaphylaxis Verified 10/27/19 19:52 codeine Allergy Unknown Verified 10/27/19 19:52 hydrocodone Allergy Unknown Verified 10/27/19 19:52 meperidine [From Demerol] Allergy Unknown Verified 10/27/19 19:52 oxycodone Allergy Unknown Verified 10/27/19 19:52 raspberry Allergy Anaphylaxis Verified 10/27/19 19:52 - Social History Does the pt smoke?: No Smoking Status: Never smoker Does the pt drink ETOH?: No Does the pt have substance abuse?: No - Immunizations Immunizations are current?: Yes - POLST Patient has POLST: No PD ED PE NORMAL - Vitals Vital signs reviewed: Yes - General General: Alert and oriented X 3, No acute distress - HEENT HEENT: Atraumatic, PERRL, EOMI, Moist mucous membranes - Neck Neck: Supple, no meningeal sign - Cardiac Cardiac: RRR, No murmur - Respiratory Respiratory: No respiratory distress, Clear bilaterally - Abdomen Abdomen: Soft, Non distended, Other (Patient has moderate right lower quadrant and suprapubic tenderness. No rebound or guarding.) - Female Female : Deferred - Back Back: Other (Patient has moderate right CVA tenderness) - Derm Derm: Normal color, Warm and dry, No rash - Extremities Extremities: No deformity, Normal ROM s pain, No edema, No calf tenderness / cord - Neuro Neuro: Alert and oriented X 3, wrecker operator 2-12 intact, No motor deficit, No sensory deficit, Normal speech - Psych Psych: Normal mood, Normal affect Results - Vitals Vitals: Oxygen O2 Source Room air - Labs Labs: Laboratory Tests 10/28/19 10/28/19 10/28/19 21:10 21:10 23:27 WBC 8.5 RBC 4.58 Hgb 13.3 Hct 40.4 MCV 88.2 MCH 29.0 MCHC 32.9 RDW 13.6 Plt Count 226 MPV 11.3 H Neut # (Auto) 5.7 Lymph # (Auto) 1.9 [place] # (Auto) 0.7 Eos # (Auto) 0.1 Baso # (Auto) 0.0 Absolute Nucleated RBC 0.00 Nucleated RBC % 0.0 Sodium 138 137 Potassium 3.6 4.1 Chloride 106 110 Carbon Dioxide 21 20 L Anion Gap 11.0 7.0 BUN 19 17 Creatinine 1.3 H 1.1 H Estimated GFR (MDRD) 45 L 54 L Glucose 102 H 102 H Calcium 9.1 8.0 L Total Bilirubin 0.8 AST 95 H ALT 146 H Alkaline Phosphatase 95 Total Protein 7.8 Albumin 4.2 Globulin 3.6 Albumin/Globulin Ratio 1.2 Lipase 28 - Rads (name of study) CT abdomen pelvis without contrast Radiology: Prelim report reviewed (Bilateral ureteral obstructing calculi.), Final report received, Discussed with rads, EMP read indepedently, See rad report PD MEDICAL DECISION MAKING - ED course Complexity details: reviewed old records, reviewed results, re-evaluated patient, considered differential, d/w patient ED course: The patient was worked up with labs, as well as CT scan of the abdomen and pelvis. CT scan showed that the patient had obstructing calculi on both sides, though since her last CT scan a few weeks ago, the stones on each side had made some progress down the ureters. On the right side, patient was found to have a calculus at the UVJ. The patient's renal function had decreased somewhat since yesterday, though I suspected that this was at least partly due to the interval development of vomiting and likely dehydration. The patient was given IV fluids and did show significant, though not complete improvement of her GFR. I spoke with Dr. Woodruff at [facility], and discussed the case with her. She stated she would like to see the patient in the office first thing the next morning and asked that the patient be kept n.p.o. after midnight, in anticipation of potential lithotripsy or other procedure. I spoke with the patient regarding the plan, and she was agreeable. Patient was found to be feeling much better after symptomatic treatment. I have given her the instructions from urology that the clinic will call her first thing in the morning to set up an appointment. I have advised her to call the clinic if she does not hear from them within the first couple of hours in the morning. Departure - Departure Disposition: 01 Home, Self Care Clinical Impression: Ureteral calculi Vomiting Qualifiers: Vomiting type: bilious vomiting Nausea presence: with nausea Qualified Code(s): R11.14 - Bilious vomiting Abdominal pain Qualifiers: Abdominal location: lower abdomen, unspecified Qualified Code(s): R10.30 - Lower abdominal pain, unspecified Condition: Fair Instructions: ED Stone Renal W Colic Prescriptions: Promethazine [Phenergan] 25 mg PO Q6H PRN #10 tab PRN Reason: Nausea / Vomiting Comments: Your CT scan continues to show kidney stones on both sides, which are descending through your ureters. Both sides are obstructed, though the kidney stones have made a little progress over the last few weeks. On the right side, the stone is at the junction with the bladder, and hopefully will pop through on its own. You have what appears to be 2 stones on the left which are right next to each other and combined, make a rather large stone burden. As such, your case was discussed with Dr. Woodruff, the on-call urologist with [facility]. She would like you to be seen in the clinic tomorrow, and you can expect to receive a call from [facility] in the morning. They have requested that you do not take anything by mouth after midnight, in anticipation of potential procedure. They will let you know for sure when you see them whether any sort of procedural intervention needs to be done. You have been given medication for pain in the emergency department. If you need to take medication for pain or nausea between now and when you are seen urology, you may do so with only the smallest amount of water necessary to swallow the pills. Discharge Date/Time: 10/29/19 00:16
[2019-10-29] MEDS ORDERED: HYDROmorphone 1 MG/ML CARPUJECT IVP STA (00:06)
[2019-10-29 00:17] VITALS: BP 133/82
== END 2019-10-29 00:16 | disposition home or self-care (01) ==
LOC: ED 20:12
DX: N13.2 Hydronephrosis with renal and ureteral calculous obstruction (principal); Z87.442 Personal history of urinary calculi
CPT/HCPCS: 36415; 74176; 80048; 80053; 83690; 85025; 96361; 96365; 96375; 99284; J1170; J7040

== ENCOUNTER 2019-11-26 14:28 | Emergency (ER) | payer BC, OTHER ==
--- NOTE | 2019-11-26 15:07 | ED Physician Documentation ---
History of Present Illness - Stated complaint Stated Complaint: PAIN AT STENT SITE - Chief complaint Chief Complaint: Abd Pain - History obtained from History obtained from: Patient - History of Present Illness Timing: How many days ago (2) Pain level max: 8 Pain level now: 7 - Additonal information Additional information: 44-year-old female presents to the emergency department with left flank pain for the past 2 to 3 days. She had a ureteral stent placed approximately 30 days ago for ureteral stones. States she has been having increasing pain over the past 2 days along with fevers at home. T-max 101. The stent was placed by Dr. Shafer at [facility]. She was told to come to the emergency department for evaluation. The stent is set to be removed tomorrow. Nothing makes the pain better or worse. 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 : Kidney stones HEENT: Chronic vision loss, Chronic sinusitis Psych: Anxiety, Panic attacks Musculoskeletal: Fatigue, Chronic back pain Derm: Rosacea, Other - Past Surgical History Past Surgical History: Yes General: Cholecystectomy, Appendectomy /POWER PLANT TECHNICIAN: section, Tubal ligation, Hysterectomy - Present Medications Home Medications: Ambulatory Orders Medication Instructions Recorded Confirmed ALPRAZolam [Alprazolam] 0.25 mg PO DAILY PRN 10/24/18 08/30/19 rOPINIRole [Requip] 0.5 mg PO DAILY 02/04/19 08/30/19 EPINEPHrine [Epinephrine] 0.3 mg IJ ONCE PRN #2 auto.injct 03/27/19 08/30/19 Albuterol Sulf [Ventolin Hfa 1 - 2 puffs INH Q4HR PRN #1 inhaler 07/10/19 08/30/19 Inhaler] Cyclobenzaprine [Flexeril] 10 mg PO PRN PRN 08/30/19 08/30/19 DULoxetine [Cymbalta] 30 mg PO DAILY 08/30/19 08/30/19 Potassium Citrate [Potassium 5 meq PO DAILY 08/30/19 08/30/19 Citrate ER] Thyroid [[place] Thyroid] 60 mg PO DAILY 08/30/19 08/30/19 hydrOXYzine HCL [Hydroxyzine HCl] 25 mg PO DAILY 08/30/19 08/30/19 HYDROmorphone [Dilaudid] 1 - 2 mg PO Q6H PRN #15 tablet 10/27/19 Ondansetron Odt [Zofran] 4 mg TL Q6H PRN #20 tablet 10/27/19 Tamsulosin [Flomax] 0.4 mg PO DAILY #14 capsule 10/27/19 Promethazine [Phenergan] 25 mg PO Q6H PRN #10 tab 10/29/19 Cefdinir 300 mg PO BID #20 capsule 11/26/19 Promethazine [Phenergan] 25 mg PO Q6H PRN #10 tab 11/26/19 - Allergies Allergies/Adverse Reactions: Allergies Allergy/AdvReac Type Severity Reaction Status Date / Time blackberry Allergy Anaphylaxis Verified 11/26/19 14:31 codeine Allergy Unknown Verified 11/26/19 14:31 hydrocodone Allergy Unknown Verified 11/26/19 14:31 meperidine [From Demerol] Allergy Unknown Verified 11/26/19 14:31 oxycodone Allergy Unknown Verified 11/26/19 14:31 raspberry Allergy Anaphylaxis Verified 11/26/19 14:31 - Social History Does the pt smoke?: No Smoking Status: Never smoker Does the pt drink ETOH?: No Does the pt have substance abuse?: No - Immunizations Immunizations are current?: Yes - POLST Patient has POLST: No PD ED PE NORMAL - Vitals Vital signs reviewed: Yes - General General: Alert and oriented X 3, No acute distress - HEENT HEENT: Moist mucous membranes - Neck Neck: Supple, no meningeal sign - Cardiac Cardiac: RRR - Respiratory Respiratory: No respiratory distress, Clear bilaterally - Abdomen Abdomen: Soft, Non tender, Non distended - Back Back: Other (Left CVA tenderness) - Derm Derm: Warm and dry - Neuro Neuro: Alert and oriented X 3 - Psych Psych: Normal mood, Normal affect Results - Vitals Vitals: Vital Signs - 24 hr 11/26/19 11/26/19 11/26/19 14:31 15:02 16:00 Temperature 37.1 C 38.1 C H 38.2 C H Heart Rate 112 H 106 H 96 Respiratory 16 18 22 Rate Blood Pressure 126/87 H 126/78 112/68 O2 Saturation 97 98 95 11/26/19 16:56 Temperature 37.9 C H Heart Rate 109 H Respiratory 22 Rate Blood Pressure 103/64 O2 Saturation 96 Oxygen O2 Source Room air - Labs Labs: Laboratory Tests 11/26/19 11/26/19 11/26/19 15:03 15:31 15:31 WBC 9.6 RBC 4.53 Hgb 13.1 Hct 39.4 MCV 87.0 MCH 28.9 MCHC 33.2 RDW 13.7 Plt Count 230 MPV 10.6 Neut # (Auto) 6.2 Lymph # (Auto) 1.9 [place] # (Auto) 1.2 H Eos # (Auto) 0.1 Baso # (Auto) 0.0 Absolute Nucleated RBC 0.00 Nucleated RBC % 0.0 Sodium 139 Potassium 3.4 L Chloride 103 Carbon Dioxide 27 Anion Gap 9.0 BUN 10 Creatinine 0.7 Estimated GFR (MDRD) 91 Glucose 73 Lactic Acid Calcium 9.3 Total Bilirubin 0.9 AST 19 ALT 23 Alkaline Phosphatase 93 Total Protein 7.4 Albumin 3.9 Globulin 3.5 Albumin/Globulin Ratio 1.1 Lipase 37 Urine Color YELLOW Urine Clarity HAZY Urine pH 6.0 Ur Specific [place] 1.020 Urine Protein 30 H Urine Glucose (UA) NEGATIVE Urine Ketones NEGATIVE Urine Occult Blood LARGE H Urine Nitrite NEGATIVE Urine Bilirubin NEGATIVE Urine Urobilinogen 0.2 (NORMAL) Ur Leukocyte Esterase LARGE H Urine RBC 6-10 H Urine WBC >25 H Ur Squamous Epith Cells NONE SEEN Urine Bacteria Few Urine Casts 0-2 Fine Granular Ur Microscopic Review INDICATED Urine Culture Comments INDICATED Urine HCG, Qual NEGATIVE 11/26/19 15:31 WBC RBC Hgb Hct MCV MCH MCHC RDW Plt Count MPV Neut # (Auto) Lymph # (Auto) [place] # (Auto) Eos # (Auto) Baso # (Auto) Absolute Nucleated RBC Nucleated RBC % Sodium Potassium Chloride Carbon Dioxide Anion Gap BUN Creatinine Estimated GFR (MDRD) Glucose Lactic Acid 1.1 Calcium Total Bilirubin AST ALT Alkaline Phosphatase Total Protein Albumin Globulin Albumin/Globulin Ratio Lipase Urine Color Urine Clarity Urine pH Ur Specific [place] Urine Protein Urine Glucose (UA) Urine Ketones Urine Occult Blood Urine Nitrite Urine Bilirubin Urine Urobilinogen Ur Leukocyte Esterase Urine RBC Urine WBC Ur Squamous Epith Cells Urine Bacteria Urine Casts Ur Microscopic Review Urine Culture Comments Urine HCG, Qual - Rads (name of study) KUB Radiology: Prelim report reviewed, EMP read contemporaneously, See rad report (Double-J stent in place) PD MEDICAL DECISION MAKING - ED course Complexity details: reviewed results, re-evaluated patient, considered differential, d/w patient, d/w system sales consultant ED course: 44-year-old female presents to the emergency department with what appears to be an infected ureteral stent. Given Rocephin. No sepsis at this time. Pain well controlled. Fever decreased. Discussed the case with her urologist, Dr. Shafer who will see the patient tomorrow to remove the stent. Patient counseled regarding signs and symptoms for which I believe and urgent re-evaluation would be necessary. Patient with good understanding of and agreement to plan and is comfortable going home at this time This document was made in part using voice recognition software. While efforts are made to proofread this document, sound alike and grammatical errors may occur. Departure - Departure Disposition: 01 Home, Self Care Clinical Impression: UTI (urinary tract infection) Qualifiers: Urinary tract infection type: acute pyelonephritis Qualified Code(s): N10 - Acute pyelonephritis Fever Qualifiers: Fever type: unspecified Qualified Code(s): R50.9 - Fever, unspecified Infection associated with indwelling ureteral stent Qualifiers: Encounter type: initial encounter Qualified Code(s): T83.592A - Infection and i nflammatory reaction due to indwelling ureteral stent, initial encounter Condition: Good Instructions: ED Kidney Infec Female Follow-Up: Raya Guevara PA [Primary Care Provider] - Denise Shafer MD [Physician No Access] - Tomorrow Prescriptions: Cefdinir 300 mg PO BID #20 capsule Promethazine [Phenergan] 25 mg PO Q6H PRN #10 tab PRN Reason: Nausea / Vomiting Comments: I spoke with Dr. Soni goldberg, she will see you tomorrow as scheduled to remove the stent. Take all antibiotics until gone. Return if you worsen. Discharge Date/Time: 11/26/19 17:07
--- NOTE | 2019-11-26 15:30 | XRAY Report ---
Reason: Ureteral stent, pain Procedure Date: 11/26/2019 Accession Number: [id number] / [id number] Procedure: XR - Abdomen 1 View X-Ray CPT Code: 83017 Final Report FULL RESULT: EXAM: ABDOMEN RADIOGRAPHY EXAM DATE: 11/26/2019 02:57 PM. CLINICAL HISTORY: Ureteral stent, pain. COMPARISON: None. TECHNIQUE: 1 view. FINDINGS: Bowel Gas Pattern: Within normal limits. No dilated loops. Other: Left-sided double-J ureteral stent in place. IMPRESSION: 1. No bowel obstruction. 2. Double-J ureteral stent on the left. RADIA
[2019-11-26 15:44] LABS: BASOPHILS % (AUTO) 0.4 %; EOSINOPHILS # (AUTO) 0.1 10^3/uL (0.0-0.7); EOSINOPHILS % (AUTO) 1.5 %; HGB - HEMOGLOBIN 13.1 g/dL (12.0-16.0); LYMPHOCYTES # (AUTO) 1.9 10^3/uL (1.5-3.5); LYMPHOCYTES % (AUTO) 20.2 %; MEAN CORPUSCULAR HEMOGLOBIN 28.9 pg (27.0-31.0); MEAN CORPUSCULAR HGB CONC 33.2 g/dL (32.0-36.0); MEAN PLATELET VOLUME 10.6 fL (7.9-10.8); MONOCYTES # (AUTO) 1.2 10^3/uL (0.0-1.0); MONOCYTES % (AUTO) 12.9 %; NEUTROPHILS # (AUTO) 6.2 10^3/uL (1.5-6.6); NEUTROPHILS % (AUTO) 64.7 %; PLT - PLATELET COUNT 230 10^3/uL (130-450); RED BLOOD COUNT 4.53 10^6/uL (4.20-5.40); RED CELL DISTRIBUTION WIDTH 13.7 % (12.0-15.0); WHITE BLOOD COUNT 9.6 x10^3/uL (4.8-10.8)
[2019-11-26 15:54] LABS: BILIRUBIN,URINE NEGATIVE (NEGATIVE); CLARITY,URINE HAZY (CLEAR); GLUCOSE, URINE (UA) NEGATIVE (NEGATIVE); KETONES,URINE (UA) NEGATIVE (NEGATIVE); LEUKOCYTE ESTERASE, URINE LARGE (NEGATIVE); NITRITE,URINE NEGATIVE (NEGATIVE); OCCULT BLOOD,URINE LARGE (NEGATIVE); PROTEIN,URINE 30 mg/dL (NEGATIVE); UROBILINOGEN,URINE 0.2 (NORMAL) E.U./dL (NORMAL)
[2019-11-26 15:54] LABS: ALBUMIN 3.9 g/dL (3.2-5.5); ALBUMIN/GLOBULIN RATIO 1.1 (1.0-2.2); BILIRUBIN,TOTAL 0.9 mg/dL (0.2-1.0); CALCIUM 9.3 mg/dL (8.5-10.3); CREATININE 0.7 mg/dL (0.4-1.0); TOTAL PROTEIN 7.4 g/dL (6.7-8.2)
[2019-11-26 15:55] LABS: HCG UR QUAL NEGATIVE
[2019-11-26] MEDS ORDERED: cefTRIAXone 1 GM VIAL IVP STA (15:58)
[2019-11-26 16:04] LABS: BACTERIA,URINE Few /HPF (None Seen); CASTS, URINE 0-2 Fine Granular /LPF; SQUAMOUS EPITHELIAL CELL,UR NONE SEEN (<= Few)
[2019-11-26] MEDS ORDERED: ONDANSETRON 4 MG/2 ML VIAL IVP STA (16:13)
[2019-11-26] MEDS ORDERED: ACETAMINOPHEN 325 MG TABLET PO STA (16:13)
[2019-11-26] MEDS ORDERED: HYDROmorphone 1 MG/ML CARPUJECT IVP STA (16:13)
[2019-11-26 16:57] VITALS: BP 103/64
== END 2019-11-26 17:07 | disposition home or self-care (01) ==
LOC: ED 14:28
DX: T83.592A Infection and inflammatory reaction due to indwelling ureteral stent, initial encounter (principal); Y82.8 Other medical devices associated with adverse incidents; N10 Acute pyelonephritis
CPT/HCPCS: 36415; 74018; 80053; 81001; 81025; 83605; 83690; 85025; 87040; 87086; 96374; 96375; 99283; 99284; A9270; J1170; 81003

== ENCOUNTER 2019-11-27 17:31 | Emergency (ER) | payer BC, OTHER ==
[2019-11-27] MEDS ORDERED: MORPHINE 2 MG/ML CARPUJECT IVP STA (18:42)
[2019-11-27] MEDS ORDERED: ONDANSETRON 4 MG/2 ML VIAL IVP STA (18:42)
[2019-11-27] MEDS ORDERED: KETOROLAC 15 MG/ML VIAL IVP STA (18:42)
[2019-11-27] MEDS ORDERED: cefTRIAXone 1 GM VIAL IVP STA (18:43)
--- NOTE | 2019-11-27 18:44 | ED Physician Documentation ---
<Danie Peterson - Last Filed: 11/27/19 18:44> PD HPI ABD PAIN - Stated complaint Stated Complaint: FEVER - Chief complaint Chief Complaint: Fever - History obtained from History obtained from: Patient PD PAST MEDICAL HISTORY - Past Medical History Cardiovascular: None Respiratory: None Neuro: None Endocrine/Autoimmune: HyPOthyroidism GI: Hiatal hernia HEALTH SCREENER: None : Kidney stones HEENT: Chronic vision loss, Chronic sinusitis Psych: Anxiety, Panic attacks Musculoskeletal: Fatigue, Chronic back pain Derm: Rosacea, Other - Past Surgical History Past Surgical History: Yes General: Cholecystectomy, Appendectomy /HEALTH SCREENER: section, Tubal ligation, Hysterectomy - Present Medications Home Medications: Ambulatory Orders Medication Instructions Recorded Confirmed ALPRAZolam [Alprazolam] 0.25 mg PO DAILY PRN 10/24/18 08/30/19 rOPINIRole [Requip] 0.5 mg PO DAILY 02/04/19 08/30/19 EPINEPHrine [Epinephrine] 0.3 mg IJ ONCE PRN #2 auto.injct 03/27/19 08/30/19 Albuterol Sulf [Ventolin Hfa 1 - 2 puffs INH Q4HR PRN #1 inhaler 07/10/19 08/30/19 Inhaler] Cyclobenzaprine [Flexeril] 10 mg PO PRN PRN 08/30/19 08/30/19 DULoxetine [Cymbalta] 30 mg PO DAILY 08/30/19 08/30/19 Potassium Citrate [Potassium 5 meq PO DAILY 08/30/19 08/30/19 Citrate ER] Thyroid [[place]acy Thyroid] 60 mg PO DAILY 08/30/19 08/30/19 hydrOXYzine HCL [Hydroxyzine HCl] 25 mg PO DAILY 08/30/19 08/30/19 HYDROmorphone [Dilaudid] 1 - 2 mg PO Q6H PRN #15 tablet 10/27/19 Ondansetron Odt [Zofran] 4 mg TL Q6H PRN #20 tablet 10/27/19 Tamsulosin [Flomax] 0.4 mg PO DAILY #14 capsule 10/27/19 Promethazine [Phenergan] 25 mg PO Q6H PRN #10 tab 10/29/19 Cefdinir 300 mg PO BID #20 capsule 11/26/19 Promethazine [Phenergan] 25 mg PO Q6H PRN #10 tab 11/26/19 Ciprofloxacin HCl [Cipro] 500 mg PO BID 14 Days #27 tablet 11/27/19 - Allergies Allergies/Adverse Reactions: Allergies Allergy/AdvReac Type Severity Reaction Status Date / Time blackberry Allergy Anaphylaxis Verified 11/27/19 17:41 codeine Allergy Unknown Verified 11/27/19 17:41 hydrocodone Allergy Unknown Verified 11/27/19 17:41 meperidine [From Demerol] Allergy Unknown Verified 11/27/19 17:41 oxycodone Allergy Unknown Verified 11/27/19 17:41 raspberry Allergy Anaphylaxis Verified 11/27/19 17:41 - Social History Does the pt smoke?: No Smoking Status: Never smoker Does the pt drink ETOH?: No Does the pt have substance abuse?: No - Immunizations Immunizations are current?: Yes - POLST Patient has POLST: No Departure - Departure Disposition: 01 Home, Self Care Clinical Impression: Pyelonephritis Condition: Good Instructions: ED Kidney Infec Female Prescriptions: Ciprofloxacin HCl [Cipro] 500 mg PO BID 14 Days #27 tablet <Chidi Izaguirre A - Last Filed: 11/27/19 22:18> PD HPI ABD PAIN - History obtained from History obtained from: Patient - History of Present Illness Timing - onset: Yesterday Timing - details: Gradual onset Quality: Pain Location: LLQ Radiation: Left flank Improved by: Other (no ameliorating factors) Worsened by: Other (no exacerbating factors) Associated symptoms: Fever Recently seen: Clinic, Emergency Dept - Additional information Additional information: patient had left ureteral stone removed via lithotripsy with stent placement; this was performed approximately 30 days ago. She developed fever yesterday and thus came to ED where she had blood tests, UA performed. She was given rocephin IV and rx for cefdinir. She followed up with her urologist today (Dr. Shafer) and the stent was removed. Patient says she was told that she should not have any more fevers now that the stent was removed. However, this evening she again had fever to Tmax 39.5 and thus returns to ED. She has been having left groin pain radiating to left flank x several days. Review of Systems Constitutional: reports: Fever, Chills, Myalgias, Sweats Respiratory: reports: Reviewed and negative GI: reports: Abdominal Pain. denies: Abdominal Swelling, Nausea, Vomiting, Constipation, Diarrhea : reports: Frequency. denies: Dysuria, Hematuria Skin: denies: Rash Musculoskeletal: denies: Back pain PD PAST MEDICAL HISTORY - Past Medical History Past Medical History: Yes - Past Surgical History Past Surgical History: Yes - Living Situation Living Arrangement: reports: At home PD ED PE NORMAL - Vitals Vital signs reviewed: Yes - General General: Alert and oriented X 3, No acute distress, Well developed/nourished - HEENT HEENT: Moist mucous membranes - Neck Neck: Supple, no meningeal sign - Cardiac Cardiac: RRR, No murmur - Respiratory Respiratory: No respiratory distress, Clear bilaterally - Abdomen Abdomen: Soft, Non tender, Non distended - Back Back: Other (minimal left CVA tenderness) - Derm Derm: Normal color, Warm and dry, No rash - Extremities Extremities: No edema Results - Vitals Vitals: Vital Signs - 24 hr 11/27/19 11/27/19 11/27/19 17:41 19:09 20:00 Temperature 39.0 C H 38.7 C H Heart Rate 116 H 97 95 Respiratory 16 16 17 Rate Blood Pressure 111/79 111/74 105/70 O2 Saturation 95 94 93 11/27/19 11/27/19 20:36 21:52 Temperature 36.9 C 36.8 C Heart Rate 79 Respiratory 17 Rate Blood Pressure 112/70 O2 Saturation 94 Oxygen O2 Source Nasal cannula Oxygen Flow Rate 1 - Labs Labs: Laboratory Tests 11/27/19 11/27/19 11/27/19 18:36 18:46 18:46 WBC 9.9 RBC 4.46 Hgb 12.9 Hct 39.1 MCV 87.7 MCH 28.9 MCHC 33.0 RDW 13.9 Plt Count 226 MPV 11.0 H Neut # (Auto) 6.7 H Lymph # (Auto) 1.8 [place] # (Auto) 1.1 H Eos # (Auto) 0.1 Baso # (Auto) 0.0 Absolute Nucleated RBC 0.00 Nucleated RBC % 0.0 Sodium 137 Potassium 3.6 Chloride 100 L Carbon Dioxide 27 Anion Gap 10.0 BUN 11 Creatinine 0.8 Estimated GFR (MDRD) 78 L Glucose 110 H Lactic Acid Calcium 9.1 Total Bilirubin 0.6 AST 86 H ALT 85 H Alkaline Phosphatase 127 H Total Protein 7.5 Albumin 4.0 Globulin 3.5 Albumin/Globulin Ratio 1.1 Lipase 27 Urine Color YELLOW Urine Clarity HAZY Urine pH 6.0 Ur Specific [place] 1.025 Urine Protein 30 H Urine Glucose (UA) NEGATIVE Urine Ketones NEGATIVE Urine Occult Blood LARGE H Urine Nitrite NEGATIVE Urine Bilirubin NEGATIVE Urine Urobilinogen 0.2 (NORMAL) Ur Leukocyte Esterase SMALL H Urine RBC TNTC H Urine WBC >25 H Ur Squamous Epith Cells FEW Squamous Urine Bacteria None Seen Ur Microscopic Review INDICATED Urine Culture Comments INDICATED 11/27/19 18:46 WBC RBC Hgb Hct MCV MCH MCHC RDW Plt Count MPV Neut # (Auto) Lymph # (Auto) [place] # (Auto) Eos # (Auto) Baso # (Auto) Absolute Nucleated RBC Nucleated RBC % Sodium Potassium Chloride Carbon Dioxide Anion Gap BUN Creatinine Estimated GFR (MDRD) Glucose Lactic Acid 1.2 Calcium Total Bilirubin AST ALT Alkaline Phosphatase Total Protein Albumin Globulin Albumin/Globulin Ratio Lipase Urine Color Urine Clarity Urine pH Ur Specific [place] Urine Protein Urine Glucose (UA) Urine Ketones Urine Occult Blood Urine Nitrite Urine Bilirubin Urine Urobilinogen Ur Leukocyte Esterase Urine RBC Urine WBC Ur Squamous Epith Cells Urine Bacteria Ur Microscopic Review Urine Culture Comments - Rads (name of study) CT A/P Radiology: Prelim report reviewed, See rad report PD MEDICAL DECISION MAKING - ED course Complexity details: reviewed old records, reviewed results, re-evaluated patient, considered differential, d/w patient ED course: fever resolved after IV toradol. Also given IV rocephin in ED tonight and IV fluids. I discussed the case with (pad extraction tender for Dr. Shafer's urology group); he recommends CT A/P without contrast and call back with results. This was done and I recontacted Dr. Wilks; he recommends outpatient treatment unless vital signs are unstable or patient appears toxic. Patient's vital signs are stable, and she is awake, alert, and in NAD on my reevaluation. I mentioned to Dr. Wilks that she had been prescribed cefdinir. He recommends changing to Cipro 500mg PO BID x 14 days. She was given first dose of Cipro in ED and rx for this.
[2019-11-27 18:54] LABS: BILIRUBIN,URINE NEGATIVE (NEGATIVE); CLARITY,URINE HAZY (CLEAR); GLUCOSE, URINE (UA) NEGATIVE (NEGATIVE); KETONES,URINE (UA) NEGATIVE (NEGATIVE); LEUKOCYTE ESTERASE, URINE SMALL (NEGATIVE); NITRITE,URINE NEGATIVE (NEGATIVE); OCCULT BLOOD,URINE LARGE (NEGATIVE); PROTEIN,URINE 30 mg/dL (NEGATIVE); UROBILINOGEN,URINE 0.2 (NORMAL) E.U./dL (NORMAL)
[2019-11-27 19:04] LABS: BACTERIA,URINE None Seen /HPF (None Seen); RBC,URINE TNTC /HPF (0-5); SQUAMOUS EPITHELIAL CELL,UR FEW Squamous (<= Few)
[2019-11-27 19:06] LABS: BASOPHILS % (AUTO) 0.3 %; EOSINOPHILS # (AUTO) 0.1 10^3/uL (0.0-0.7); EOSINOPHILS % (AUTO) 1.4 %; HGB - HEMOGLOBIN 12.9 g/dL (12.0-16.0); LYMPHOCYTES # (AUTO) 1.8 10^3/uL (1.5-3.5); LYMPHOCYTES % (AUTO) 18.6 %; MEAN CORPUSCULAR HEMOGLOBIN 28.9 pg (27.0-31.0); MEAN CORPUSCULAR VOLUME 87.7 fL (81.0-99.0); MONOCYTES # (AUTO) 1.1 10^3/uL (0.0-1.0); MONOCYTES % (AUTO) 11.2 %; NEUTROPHILS # (AUTO) 6.7 10^3/uL (1.5-6.6); PLT - PLATELET COUNT 226 10^3/uL (130-450); RED BLOOD COUNT 4.46 10^6/uL (4.20-5.40); RED CELL DISTRIBUTION WIDTH 13.9 % (12.0-15.0); WHITE BLOOD COUNT 9.9 x10^3/uL (4.8-10.8)
[2019-11-27 19:19] LABS: ALBUMIN/GLOBULIN RATIO 1.1 (1.0-2.2); BILIRUBIN,TOTAL 0.6 mg/dL (0.2-1.0); CALCIUM 9.1 mg/dL (8.5-10.3); CREATININE 0.8 mg/dL (0.4-1.0); TOTAL PROTEIN 7.5 g/dL (6.7-8.2)
[2019-11-27] MEDS ORDERED: SODIUM CHLORIDE 0.9% 1,000 ML IV STA (20:39)
--- NOTE | 2019-11-27 20:51 | CT Report ---
Reason: left flank pain, fever, recent procedure Procedure Date: 11/27/2019 Accession Number: [id number] / [id number] Procedure: CT - Abdomen/Pelvis WO CPT Code: Final Report FULL RESULT: EXAM: CT ABDOMEN AND PELVIS (CT KUB) EXAM DATE: 11/27/2019 08:31 PM. CLINICAL HISTORY: Left flank pain, fever, recent procedure. COMPARISONS: ABDOMEN/PELVIS W/O 10/28/2019 9:00 PM ABDOMEN 1 VIEW 11/26/2019 2:39 PM. TECHNIQUE: Routine axial helical CT imaging was performed through the abdomen and pelvis without IV contrast. Reconstructions: Coronal and sagittal. In accordance with CT protocol optimization, one or more of the following dose reduction techniques were utilized for this exam: automated exposure control, adjustment of mA and/or KV based on patient size, or use of iterative reconstructive technique. FINDINGS: Lung Bases: Minimal wispy dependent bibasilar atelectasis. Right Kidney/Ureter: 2 mm upper pole and 3 mm lower pole right renal calculi. No ureteral calculus. Calculus seen before the right ureterovesical junction is no longer present. Right hydronephrosis seen before has resolved. Left Kidney/Ureter: Upper pole left renal calculus seen before is no longer present. Mid left ureteral calculi seen before are no longer present. There is persistent mild left hydronephrosis and hydroureter. There is new mild left peripelvic and periureteral fat stranding. Other Solid Organs: Noncontrast images of the solid organs are grossly unremarkable. Gallbladder/Bile Ducts: Gallbladder surgically absent, as before. No ductal dilatation. Peritoneal Cavity: Hiatal hernia containing gastric cardia and fat, as before. Unopacified stomach and small bowel are nondistended. There is a mobile cecum which extends into the anterior mid pelvis. The appendix is not clearly identified. There is minimal formed stool in the colon there is no focal pericolonic fat stranding. There is minimal sigmoid colon diverticulosis. There is no lymphadenopathy, ascites, or pneumoperitoneum. Pelvic Organs: Small volume bladder. Small amount of nondependent no bladder or ureterovesical junction calculi. Uterus surgically absent, as before. No adnexal mass is identified. Vasculature: Unremarkable. Other: Body wall unremarkable. Bones unremarkable. IMPRESSION: 1. New mild left peripelvic and periureteral fat stranding consistent with pyelonephritis. Persistent mild left hydronephrosis and hydroureter. 2. No residual left intrarenal or ureteral calculi. 3. Right ureterovesical junction calculus seen before is no longer present. There are persistent 2 mm upper pole and 3 mm lower pole mild right hydronephrosis and hydroureter seen before have resolved. 4. Postprocedural gas in the bladder. No bladder calculi. 5. Small hiatal hernia containing gastric cardia and fat, as before. RADIA
[2019-11-27] MEDS ORDERED: CIPROFLOXACIN 250 MG TABLET PO STA (21:34)
[2019-11-27 21:54] VITALS: BP 112/70
== END 2019-11-27 22:11 | disposition home or self-care (01) ==
LOC: ED 17:31
DX: N12 Tubulo-interstitial nephritis, not specified as acute or chronic (principal); Z87.442 Personal history of urinary calculi; K44.9 Diaphragmatic hernia without obstruction or gangrene
CPT/HCPCS: 36415; 74176; 80053; 81001; 83605; 83690; 85025; 87086; 96361; 96374; 96375; 99284; A9270; 81003

== ENCOUNTER 2019-12-20 14:52 | Emergency (ER) | payer BC, OTHER ==
[2019-12-20 15:22] LABS: BASOPHILS % (AUTO) 0.3 %; EOSINOPHILS # (AUTO) 0.6 10^3/uL (0.0-0.7); EOSINOPHILS % (AUTO) 5.5 %; HGB - HEMOGLOBIN 14.3 g/dL (12.0-16.0); LYMPHOCYTES # (AUTO) 2.8 10^3/uL (1.5-3.5); MEAN CORPUSCULAR HEMOGLOBIN 27.3 pg (27.0-31.0); MEAN CORPUSCULAR HGB CONC 31.6 g/dL (32.0-36.0); MEAN CORPUSCULAR VOLUME 86.5 fL (81.0-99.0); MEAN PLATELET VOLUME 10.5 fL (7.9-10.8); MONOCYTES # (AUTO) 0.7 10^3/uL (0.0-1.0); MONOCYTES % (AUTO) 6.4 %; NEUTROPHILS # (AUTO) 7.4 10^3/uL (1.5-6.6); NEUTROPHILS % (AUTO) 63.5 %; PLT - PLATELET COUNT 302 10^3/uL (130-450); RED BLOOD COUNT 5.24 10^6/uL (4.20-5.40); RED CELL DISTRIBUTION WIDTH 14.6 % (12.0-15.0); WHITE BLOOD COUNT 11.6 x10^3/uL (4.8-10.8)
[2019-12-20 15:36] LABS: ALBUMIN/GLOBULIN RATIO 1.1 (1.0-2.2); BILIRUBIN,TOTAL 0.7 mg/dL (0.2-1.0); CALCIUM 9.6 mg/dL (8.5-10.3); CREATININE 0.8 mg/dL (0.4-1.0); TOTAL PROTEIN 7.8 g/dL (6.7-8.2)
[2019-12-20] MEDS ORDERED: PROMETHAZINE INJ 25 MG in SODIUM CHLORIDE 0.9% 50 ML IV STA (16:48)
[2019-12-20] MEDS ORDERED: HYDROmorphone 2 MG/ML VIAL IVP STA (16:48)
[2019-12-20] MEDS ORDERED: LACTATED RINGERS 2,000 ML IV STA (16:48)
--- NOTE | 2019-12-20 16:52 | ED Physician Documentation ---
PD HPI ABD PAIN - Stated complaint Stated Complaint: LOW BP, RHR - POST OP - Chief complaint Chief Complaint: Abd Pain - History obtained from History obtained from: Patient (6 days out from lap juliano at [facility]. Not eating well with nausea. Pain is not too bad. No fevers, feeling lightheaded and tachycardic potentially d/t poor intake.) Review of Systems Ten Systems: 10 systems reviewed and negative Constitutional: denies: Fever, Chills Cardiac: reports: Chest pain / pressure (with deep breathing). denies: Palpitations Respiratory: denies: Dyspnea, Cough GI: reports: Abdominal Pain (minimal), Nausea. denies: Vomiting, Constipation, Diarrhea PD PAST MEDICAL HISTORY - Past Medical History Cardiovascular: None Respiratory: None Neuro: None Endocrine/Autoimmune: HyPOthyroidism GI: Hiatal hernia BASEBALL PLAYER: None : Kidney stones HEENT: Chronic vision loss, Chronic sinusitis Psych: Anxiety, Panic attacks Musculoskeletal: Fatigue, Chronic back pain Derm: Rosacea, Other - Past Surgical History Past Surgical History: Yes General: Cholecystectomy, Appendectomy /BASEBALL PLAYER: section, Tubal ligation, Hysterectomy - Present Medications Home Medications: Ambulatory Orders Medication Instructions Recorded Confirmed ALPRAZolam [Alprazolam] 0.25 mg PO DAILY PRN 10/24/18 08/30/19 rOPINIRole [Requip] 0.5 mg PO DAILY 02/04/19 08/30/19 EPINEPHrine [Epinephrine] 0.3 mg IJ ONCE PRN #2 auto.injct 03/27/19 08/30/19 Albuterol Sulf [Ventolin Hfa 1 - 2 puffs INH Q4HR PRN #1 inhaler 07/10/19 08/30/19 Inhaler] Cyclobenzaprine [Flexeril] 10 mg PO PRN PRN 08/30/19 08/30/19 DULoxetine [Cymbalta] 30 mg PO DAILY 08/30/19 08/30/19 Potassium Citrate [Potassium 5 meq PO DAILY 08/30/19 08/30/19 Citrate ER] Thyroid [[place] Thyroid] 60 mg PO DAILY 08/30/19 08/30/19 hydrOXYzine HCL [Hydroxyzine HCl] 25 mg PO DAILY 08/30/19 08/30/19 HYDROmorphone [Dilaudid] 1 - 2 mg PO Q6H PRN #15 tablet 10/27/19 Ondansetron Odt [Zofran] 4 mg TL Q6H PRN #20 tablet 10/27/19 Tamsulosin [Flomax] 0.4 mg PO DAILY #14 capsule 10/27/19 Promethazine [Phenergan] 25 mg PO Q6H PRN #10 tab 10/29/19 Cefdinir 300 mg PO BID #20 capsule 11/26/19 Promethazine [Phenergan] 25 mg PO Q6H PRN #10 tab 11/26/19 Ciprofloxacin HCl [Cipro] 500 mg PO BID 14 Days #27 tablet 11/27/19 Promethazine Supp [Phenergan Supp] 25 mg MT Q6H PRN #20 supp 12/20/19 - Allergies Allergies/Adverse Reactions: Allergies Allergy/AdvReac Type Severity Reaction Status Date / Time blackberry Allergy Anaphylaxis Verified 12/20/19 15:03 codeine Allergy Unknown Verified 12/20/19 15:03 hydrocodone Allergy Unknown Verified 12/20/19 15:03 meperidine [From Demerol] Allergy Unknown Verified 12/20/19 15:03 oxycodone Allergy Unknown Verified 12/20/19 15:03 raspberry Allergy Anaphylaxis Verified 12/20/19 15:03 - Social History Does the pt smoke?: No Smoking Status: Never smoker Does the pt drink ETOH?: No Does the pt have substance abuse?: No - Immunizations Immunizations are current?: Yes - POLST Patient has POLST: No PD ED PE NORMAL - Vitals Vital signs reviewed: Yes - General General: Alert and oriented X 3, No acute distress - HEENT HEENT: PERRL, EOMI - Neck Neck: Supple, no meningeal sign, No bony TTP - Cardiac Cardiac: RRR, No murmur - Respiratory Respiratory: No respiratory distress, Clear bilaterally - Abdomen Abdomen: Normal bowel sounds, Soft, Other (lap incisions look fine. Minimal epigastric TTP) - Back Back: No CVA TTP, No spinal TTP - Neuro Neuro: Alert and oriented X 3, Normal speech Results - Vitals Vitals: Vital Signs - 24 hr 12/20/19 12/20/19 14:59 19:05 Temperature 35.8 C L Heart Rate 115 H 76 Respiratory 20 16 Rate Blood Pressure 126/76 122/73 O2 Saturation 99 99 Oxygen O2 Source Room air - EKG (time done) 1508 Rate: Rate (enter#) (103) Rhythm: Sinus tachycardia, LAE [place]: Normal Intervals: Normal MT QRS: Normal Ischemia: Normal ST segments Computer interpretation: Agree with computer - Labs Labs: Laboratory Tests 12/20/19 12/20/19 12/20/19 15:16 15:16 17:01 WBC 11.6 H RBC 5.24 Hgb 14.3 Hct 45.3 MCV 86.5 MCH 27.3 MCHC 31.6 L RDW 14.6 Plt Count 302 MPV 10.5 Neut # (Auto) 7.4 H Lymph # (Auto) 2.8 [place] # (Auto) 0.7 Eos # (Auto) 0.6 Baso # (Auto) 0.0 Absolute Nucleated RBC 0.00 Nucleated RBC % 0.0 Sodium 140 Potassium 3.9 Chloride 103 Carbon Dioxide 27 Anion Gap 10.0 BUN 14 Creatinine 0.8 Estimated GFR (MDRD) 78 L Glucose 99 Calcium 9.6 Total Bilirubin 0.7 AST 52 H ALT 161 H Alkaline Phosphatase 107 Total Protein 7.8 Albumin 4.0 Globulin 3.8 Albumin/Globulin Ratio 1.1 Lipase 30 Urine Color YELLOW Urine Clarity CLEAR Urine pH 6.5 Ur Specific [place] 1.015 Urine Protein NEGATIVE Urine Glucose (UA) NEGATIVE Urine Ketones NEGATIVE Urine Occult Blood NEGATIVE Urine Nitrite NEGATIVE Urine Bilirubin NEGATIVE Urine Urobilinogen 0.2 (NORMAL) Ur Leukocyte Esterase NEGATIVE Ur Microscopic Review NOT INDICATED Urine Culture Comments NOT INDICATED Urine HCG, Qual 12/20/19 17:38 WBC RBC Hgb Hct MCV MCH MCHC RDW Plt Count MPV Neut # (Auto) Lymph # (Auto) [place] # (Auto) Eos # (Auto) Baso # (Auto) Absolute Nucleated RBC Nucleated RBC % Sodium Potassium Chloride Carbon Dioxide Anion Gap BUN Creatinine Estimated GFR (MDRD) Glucose Calcium Total Bilirubin AST ALT Alkaline Phosphatase Total Protein Albumin Globulin Albumin/Globulin Ratio Lipase Urine Color Urine Clarity Urine pH Ur Specific [place] 1.015 Urine Protein Urine Glucose (UA) Urine Ketones Urine Occult Blood Urine Nitrite Urine Bilirubin Urine Urobilinogen Ur Leukocyte Esterase Ur Microscopic Review Urine Culture Comments Urine HCG, Qual NEGATIVE PD MEDICAL DECISION MAKING - ED course ED course: 44-year-old woman status post laparoscopic Juliano fundoplication presents with some dizziness and weakness with poor oral intake. She was administered 2 L of crystalloid here which made her feel much better. Vital signs improved. Departure - Departure Disposition: 01 Home, Self Care Clinical Impression: Nausea, Postoperative pain Condition: Good Record reviewed to determine appropriate education?: Yes Instructions: ED Acute Pain UKO Prescriptions: Promethazine Supp [Phenergan Supp] 25 mg MT Q6H PRN #20 supp PRN Reason: Nausea / Vomiting Comments: Return for new or worsening symptoms, especially fever, shortness of breath, or other concerns. Follow-up with your surgeon as scheduled.
[2019-12-20 18:00] LABS: BILIRUBIN,URINE NEGATIVE (NEGATIVE); GLUCOSE, URINE (UA) NEGATIVE (NEGATIVE); KETONES,URINE (UA) NEGATIVE (NEGATIVE); LEUKOCYTE ESTERASE, URINE NEGATIVE (NEGATIVE); NITRITE,URINE NEGATIVE (NEGATIVE); OCCULT BLOOD,URINE NEGATIVE (NEGATIVE); PH,URINE 6.5 PH (5.0-7.5); PROTEIN,URINE NEGATIVE (NEGATIVE); UROBILINOGEN,URINE 0.2 (NORMAL) E.U./dL (NORMAL)
[2019-12-20 18:03] LABS: CLARITY,URINE CLEAR (CLEAR)
[2019-12-20 18:03] LABS: HCG UR QUAL NEGATIVE
--- NOTE | 2019-12-20 19:09 | XRAY Report ---
Reason: diaphragm pain Procedure Date: 12/20/2019 Accession Number: [id number] / [id number] Procedure: XR - Chest 1 View X-Ray CPT Code: 82830 Final Report FULL RESULT: EXAM: CHEST RADIOGRAPHY EXAM DATE: 12/20/2019 06:59 PM. CLINICAL HISTORY: Diaphragm pain. COMPARISON: CHEST 1 VIEW 07/10/2019 11:36 AM. TECHNIQUE: 1 view. FINDINGS: Lungs/Pleura: Platelike atelectasis in the lung bases. No effusions. Low lung volumes. No pneumothoraces. Mediastinum: Within exam limitations, the cardiomediastinal contour is normal. Other: None. IMPRESSION: Low lung volumes with bibasilar atelectasis. Otherwise normal. RADIA
[2019-12-20] MEDS ORDERED: HYDROmorphone 1 MG/ML CARPUJECT IVP STA (19:18)
[2019-12-20 21:09] VITALS: BP 135/82
== END 2019-12-20 20:50 | disposition home or self-care (01) ==
LOC: ED 14:52
DX: R42 Dizziness and giddiness (principal); R53.1 Weakness; R63.8 Other symptoms and signs concerning food and fluid intake; G89.18 Other acute postprocedural pain
CPT/HCPCS: 36415; 71045; 80053; 81003; 81025; 83690; 85025; 93005; 96361; 96365; 96366; 96375; 96376; 99284; J1170; J7040; J7120; 81001; 87086

== ENCOUNTER 2020-01-08 18:06 | Outpatient (CLI) | payer BC, OTHER ==
--- NOTE | 2020-01-08 20:11 | Ultrasound Report ---
PROCEDURE: Retroperitoneal INDICATIONS: KIDNEY STONES TECHNIQUE: Real-time scanning was performed of the retroperitoneal organs, with image documentation. COMPARISON: CT of abdomen and pelvis dated 11/27/2019. FINDINGS: Kidneys: Kidneys are normal in size. Right kidney measures 10.5 cm long; left kidney measures 12 cm long. Right renal cortical thickness is 1.2 cm; left renal cortical thickness is 1.1 cm. Mild righ t worse than left bilateral pelviectasis is seen. Tiny bilateral renal cysts are noted measures up to 1.1 x 1 x 1 cm in size on the right side and up to 1.4 x 1 x 1 cm on the right side. No solid masses or nephrolithiasis. There is a lobulated bilateral renal contour with suggestion of renal parenchyma l scarring consistent with prior pyelonephritis. Bladder: Prevoid volume is 68 mL. Postvoid volume is 15 mL. Bilateral ureteral jets are not visualize d during this study. No gross bladder wall abnormality is seen. IMPRESSION: 1. Mild bilateral renal pelvocaliectasis slightly more prominent on the right side. No gross obstruct ing renal stone is seen. Bilateral small renal cysts are seen. Irregular bilateral renal contour with proximal scarring is noted likely related to prior pyelonephritis. 2. No gross abnormality is seen in urinary bladder. Reviewed by: Eliud Rodríguez MD on 01/08/2020 8:10 PM PDT Approved by: Eliud Rodríguez MD on 01/08/2020 8:10 PM PDT Station ID: [id number]
== END 2020-01-08 18:07 | disposition home or self-care (01) ==
LOC: DI 18:06
PROVIDERS: ATTEND Urology
DX: N13.30 Unspecified hydronephrosis (principal); N28.1 Cyst of kidney, acquired
CPT/HCPCS: 76770

== ENCOUNTER 2020-04-05 09:51 | Outpatient (CLI) | payer BC, OTHER ==
[2020-04-05] MEDS ORDERED: IOVERSOL 320 100 ML VIAL IVP ONE ×2 (10:11→11:19)
[2020-04-05] MEDS ORDERED: IOVERSOL 320 50 ML VIAL ONE (10:11)
[2020-04-05] MEDS ORDERED: IOVERSOL 320 50 ML VIAL PO ONE (11:19)
--- NOTE | 2020-04-05 12:26 | CT Report ---
PROCEDURE: Abdomen/Pelvis W INDICATIONS: RUQ PAIN CONTRAST: IV CONTRAST: Optiray 320 ml: 100 PO CONTRAST: Optiray 320 ml50 TECHNIQUE: After the administration of oral and intravenous contrast, 5 mm thick sections acquired from the diap hragms to the symphysis. 5 mm thick coronal and sagittal reformats were acquired. For radiation dos e reduction, the following was used: automated exposure control, adjustment of mA and/or kV accordin g to patient size. COMPARISON: Retroperitoneal ultrasound 01/08/2020, CT abdomen pelvis 11/27/2019 FINDINGS: Image quality: Excellent. ABDOMEN: Lung bases: Lung bases are clear. Heart size is normal. Solid organs: Liver and spleen are normal in size and enhancement. Gallbladder has been removed Bi liary system is non dilated. Pancreas enhances normally. No adrenal nodules. Kidneys demonstrate n ormal size and enhancement, without hydronephrosis. Right renal cyst is noted. Peritoneum and bowel: Bowel loops are nonobstructive. There is a mildly thickened appearance of the colon. However, it is incompletely distended. No free fluid or air. Nodes and vessels: No retroperitoneal or mesenteric adenopathy by size criteria. Aorta and inferior vena cava are normal in size. Miscellaneous: No ventral hernias. PELVIS: Genitourinary: Bladder wall thickness is normal. Miscellaneous: No inguinal hernias or adenopathy. Bones: No suspicious bony lesions. No vertebral body compression fractures. IMPRESSION: 1. Thickened appearance of the colon as above. Will this could be secondary to incomplete distention, very early colitis cannot be definitively excluded. Reviewed by: Dacia Méndez MD on 04/05/2020 12:25 PM PDT Approved by: Dacia Méndez MD on 04/05/2020 12:25 PM PDT Station ID: [id number]
== END 2020-04-05 09:52 | disposition home or self-care (01) ==
LOC: DI 09:51
PROVIDERS: ATTEND Surgery
DX: R93.3 Abnormal findings on diagnostic imaging of other parts of digestive tract (principal)
CPT/HCPCS: 74177; Q9967

== ENCOUNTER 2020-05-02 12:35 | Emergency (ER) | payer BC, OTHER ==
[2020-05-02] MEDS ORDERED: SODIUM CHLORIDE 0.9% 1,000 ML IV STA ×2 (13:37→14:31)
[2020-05-02 13:44] LABS: BASOPHILS # (AUTO) 0.1 10^3/uL (0.0-0.1); BASOPHILS % (AUTO) 0.6 %; EOSINOPHILS # (AUTO) 0.1 10^3/uL (0.0-0.7); EOSINOPHILS % (AUTO) 1.8 %; HGB - HEMOGLOBIN 14.4 g/dL (12.0-16.0); LYMPHOCYTES # (AUTO) 2.7 10^3/uL (1.5-3.5); MEAN CORPUSCULAR HEMOGLOBIN 28.6 pg (27.0-31.0); MEAN CORPUSCULAR HGB CONC 33.4 g/dL (32.0-36.0); MEAN CORPUSCULAR VOLUME 85.7 fL (81.0-99.0); MEAN PLATELET VOLUME 11.1 fL (7.9-10.8); MONOCYTES # (AUTO) 0.6 10^3/uL (0.0-1.0); MONOCYTES % (AUTO) 7.4 %; NEUTROPHILS # (AUTO) 4.4 10^3/uL (1.5-6.6); NEUTROPHILS % (AUTO) 55.8 %; PLT - PLATELET COUNT 260 10^3/uL (130-450); RED BLOOD COUNT 5.03 10^6/uL (4.20-5.40); RED CELL DISTRIBUTION WIDTH 14.1 % (12.0-15.0); WHITE BLOOD COUNT 7.9 x10^3/uL (4.8-10.8)
[2020-05-02 13:46] LABS: MUDS CUTOFF CONCENTRATIONS CUTOFF CONC BELOW:
[2020-05-02 13:52] LABS: BILIRUBIN,URINE NEGATIVE (NEGATIVE); GLUCOSE, URINE (UA) NEGATIVE (NEGATIVE); KETONES,URINE (UA) NEGATIVE (NEGATIVE); LEUKOCYTE ESTERASE, URINE NEGATIVE (NEGATIVE); NITRITE,URINE NEGATIVE (NEGATIVE); OCCULT BLOOD,URINE NEGATIVE (NEGATIVE); PROTEIN,URINE NEGATIVE (NEGATIVE); UROBILINOGEN,URINE 0.2 (NORMAL) E.U./dL (NORMAL)
[2020-05-02 13:55] LABS: ALBUMIN 4.2 g/dL (3.2-5.5); ALBUMIN/GLOBULIN RATIO 1.2 (1.0-2.2); BILIRUBIN,TOTAL 0.6 mg/dL (0.2-1.0); CALCIUM 9.2 mg/dL (8.5-10.3); CLARITY,URINE CLEAR (CLEAR); CREATININE 0.6 mg/dL (0.4-1.0); TOTAL PROTEIN 7.7 g/dL (6.7-8.2)
[2020-05-02 14:01] LABS: TRICYCLIC ANTIDEPRESSANT,URINE POSITIVE (NEGATIVE)
[2020-05-02 14:02] LABS: AMPHETAMINE SCREEN,URINE NEGATIVE (NEGATIVE); BENZODIAZEPINES SCREEN, URINE NEGATIVE (NEGATIVE); COCAINE SCREEN URINE NEGATIVE (NEGATIVE); METHADONE SCREEN, URINE NEGATIVE (NEGATIVE); METHAMPHETAMINES SCREEN, URINE NEGATIVE (NEGATIVE); OPIATE SCREEN, URINE NEGATIVE (NEGATIVE); OXYCODONE SCREEN, URINE NEGATIVE (NEGATIVE); PROPOXYPHENE SCREEN, URINE NEGATIVE (NEGATIVE)
--- NOTE | 2020-05-02 14:27 | ED Physician Documentation ---
PD HPI NVD - Stated complaint Stated Complaint: L[place], DIZZY - Chief complaint Chief Complaint: Abd Pain - History obtained from History obtained from: Patient - History of Present Illness Timing - onset: How many months ago (5) Timing - duration: Months (5) Timing - details: Gradual onset, Still present Associated symptoms: Abdominal pain, Dizzy, Weight loss Contributing factors: Other (paraesophageal hernia repair in November of this year) Improved by: Vomiting Worsened by: Eating, Position, Palpation Similar symptoms before: Diagnosis (reduced emptying of the stomach and esophageal motility issue.) Recently seen: Clinic - Additonal information Additional information: 45-year-old female with a history of hiatal hernia of developed a paraesophageal hernia and had to have a repair done at the [facility] in November of this year. She was having difficulty with nausea vomiting and abdominal pain prior to the procedure and following the procedure she has had these same persistent complications. She has had a gastric emptying study showing a delayed gastric emptying and she has tried some Reglan at one time but has not used other motility agents. She feels that she is ready for a feeding tube. She has been losing weight she is lost about 20 pounds in the past 5 months and anything that she puts into her stomach appears to cause nausea and vomiting. Her sap portal consultant and her pace analyst are considering a feeding tube. Review of Systems Constitutional: denies: Fever Ears: denies: Ear pain Nose: denies: Congestion Throat: denies: Sore throat Cardiac: denies: Chest pain / pressure, Palpitations Respiratory: denies: Dyspnea, Cough GI: reports: Abdominal Pain, Nausea, Vomiting, Constipation, Diarrhea : denies: Dysuria, Frequency Skin: denies: Rash Musculoskeletal: denies: Neck pain, Back pain Neurologic: reports: Generalized weakness. 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 : Kidney stones HEENT: Chronic vision loss, Chronic sinusitis Psych: Anxiety, Panic attacks Musculoskeletal: Fatigue, Chronic back pain Derm: Rosacea, Other - Past Surgical History Past Surgical History: Yes General: Cholecystectomy, Appendectomy /EXECUTIVE HOUSEKEEPER: section, Tubal ligation, Hysterectomy - Present Medications Home Medications: Ambulatory Orders Medication Instructions Recorded Confirmed ALPRAZolam [Alprazolam] 0.25 mg PO DAILY PRN 04/02/19 02/06/20 rOPINIRole [Requip] 0.5 mg PO DAILY 02/04/19 08/30/19 EPINEPHrine [Epinephrine] 0.3 mg IJ ONCE PRN #2 auto.injct 03/27/19 08/30/19 Albuterol Sulf [Ventolin Hfa 1 - 2 puffs INH Q4HR PRN #1 inhaler 07/10/19 08/30/19 Inhaler] Cyclobenzaprine [Flexeril] 10 mg PO PRN PRN 08/30/19 08/30/19 DULoxetine [Cymbalta] 30 mg PO DAILY 08/30/19 08/30/19 Potassium Citrate [Potassium 5 meq PO DAILY 08/30/19 08/30/19 Citrate ER] Thyroid [[place] Thyroid] 60 mg PO DAILY 08/30/19 08/30/19 hydrOXYzine HCL [Hydroxyzine HCl] 25 mg PO DAILY 08/30/19 08/30/19 HYDROmorphone [Dilaudid] 1 - 2 mg PO Q6H PRN #15 tablet 10/27/19 Ondansetron Odt [Zofran] 4 mg TL Q6H PRN #20 tablet 10/27/19 Tamsulosin [Flomax] 0.4 mg PO DAILY #14 capsule 10/27/19 Promethazine [Phenergan] 25 mg PO Q6H PRN #10 tab 10/29/19 Cefdinir 300 mg PO BID #20 capsule 11/26/19 Promethazine [Phenergan] 25 mg PO Q6H PRN #10 tab 11/26/19 Ciprofloxacin HCl [Cipro] 500 mg PO BID 14 Days #27 tablet 11/27/19 Promethazine Supp [Phenergan Supp] 25 mg [place] Q6H PRN #20 supp 12/20/19 Ondansetron Odt [Zofran] 4 mg TL Q6H PRN #10 tablet 05/02/20 - Allergies Allergies/Adverse Reactions: Allergies Allergy/AdvReac Type Severity Reaction Status Date / Time blackberry Allergy Anaphylaxis Verified 12/20/19 15:03 codeine Allergy Unknown Verified 12/20/19 15:03 hydrocodone Allergy Unknown Verified 12/20/19 15:03 meperidine [From Demerol] Allergy Unknown Verified 12/20/19 15:03 oxycodone Allergy Unknown Verified 12/20/19 15:03 raspberry Allergy Anaphylaxis Verified 12/20/19 15:03 - Social History Does the pt smoke?: No Smoking Status: Never smoker Does the pt drink ETOH?: No Does the pt have substance abuse?: No - Immunizations Immunizations are current?: Yes - POLST Patient has POLST: No PD ED PE NORMAL - Vitals Vital signs reviewed: Yes (hypertensive ) - General General: Alert and oriented X 3, No acute distress, Well developed/nourished - HEENT HEENT: Atraumatic, PERRL, EOMI - Neck Neck: Supple, no meningeal sign - Cardiac Cardiac: RRR, No murmur - Respiratory Respiratory: No respiratory distress, Clear bilaterally - Abdomen Abdomen: Normal bowel sounds, Soft, Non distended, No organomegaly, Other (mild epigastric tenderness) - Back Back: No CVA TTP, No spinal TTP - Derm Derm: Normal color, Warm and dry, No rash - Extremities Extremities: No deformity, No edema - Neuro Neuro: Alert and oriented X 3, environmental control administrator 2-12 intact, No motor deficit, No sensory deficit, Normal speech Eye Opening: Spontaneous Motor: Obeys Commands Verbal: Oriented GCS Score: 15 - Psych Psych: Normal mood, Normal affect Results - Vitals Vitals: Vital Signs - 24 hr 05/02/20 05/02/20 05/02/20 12:43 13:02 14:55 Temperature 37 C 36.6 C Heart Rate 90 87 73 Respiratory 16 16 16 Rate Blood Pressure 130/82 H 129/85 H 105/69 O2 Saturation 99 96 100 Oxygen O2 Source Room air - Labs Labs: Laboratory Tests 05/02/20 05/02/20 05/02/20 13:30 13:30 13:30 WBC 7.9 RBC 5.03 Hgb 14.4 Hct 43.1 MCV 85.7 MCH 28.6 MCHC 33.4 RDW 14.1 Plt Count 260 MPV 11.1 H Neut # (Auto) 4.4 Lymph # (Auto) 2.7 Will # (Auto) 0.6 Eos # (Auto) 0.1 Baso # (Auto) 0.1 Absolute Nucleated RBC 0.00 Nucleated RBC % 0.0 Sodium 137 Potassium 3.3 L Chloride 102 Carbon Dioxide 25 Anion Gap 10.0 BUN 21 H Creatinine 0.6 Estimated GFR (MDRD) 109 Glucose 90 Lactic Acid Calcium 9.2 Total Bilirubin 0.6 AST 23 ALT 27 Alkaline Phosphatase 107 Total Protein 7.7 Albumin 4.2 Globulin 3.5 Albumin/Globulin Ratio 1.2 Lipase 29 Urine Color YELLOW Urine Clarity CLEAR Urine pH 6.0 Ur Specific [place] >=1.030 H Urine Protein NEGATIVE Urine Glucose (UA) NEGATIVE Urine Ketones NEGATIVE Urine Occult Blood NEGATIVE Urine Nitrite NEGATIVE Urine Bilirubin NEGATIVE Urine Urobilinogen 0.2 (NORMAL) Ur Leukocyte Esterase NEGATIVE Ur Microscopic Review NOT INDICATED Urine Culture Comments NOT INDICATED Urine Opiates Screen NEGATIVE Ur Oxycodone Screen NEGATIVE Urine Methadone Screen NEGATIVE Ur Propoxyphene Screen NEGATIVE Ur Barbiturates Screen NEGATIVE Ur Tricyclics Screen POSITIVE H Ur Phencyclidine Scrn NEGATIVE Ur Amphetamine Screen NEGATIVE U Methamphetamines Scrn NEGATIVE U Benzodiazepines Scrn NEGATIVE Urine Cocaine Screen NEGATIVE U Cannabinoids Screen NEGATIVE 05/02/20 13:52 WBC RBC Hgb Hct MCV MCH MCHC RDW Plt Count MPV Neut # (Auto) Lymph # (Auto) Will # (Auto) Eos # (Auto) Baso # (Auto) Absolute Nucleated RBC Nucleated RBC % Sodium Potassium Chloride Carbon Dioxide Anion Gap BUN Creatinine Estimated GFR (MDRD) Glucose Lactic Acid 0.8 Calcium Total Bilirubin AST ALT Alkaline Phosphatase Total Protein Albumin Globulin Albumin/Globulin Ratio Lipase Urine Color Urine Clarity Urine pH Ur Specific Ashley Urine Protein Urine Glucose (UA) Urine Ketones Urine Occult Blood Urine Nitrite Urine Bilirubin Urine Urobilinogen Ur Leukocyte Esterase Ur Microscopic Review Urine Culture Comments Urine Opiates Screen Ur Oxycodone Screen Urine Methadone Screen Ur Propoxyphene Screen Ur Barbiturates Screen Ur Tricyclics Screen Ur Phencyclidine Scrn Ur Amphetamine Screen U Methamphetamines Scrn U Benzodiazepines Scrn Urine Cocaine Screen U Cannabinoids Screen Procedures - IVC sono (time) 1320 Bedside IVC sono: IVC measures (cm) (0.87), IVC collapsed c insp (cm) (complete), Dehydration (est 2 liters deficit) PD MEDICAL DECISION MAKING - ED course Complexity details: reviewed old records, reviewed results, re-evaluated patient, considered differential, d/w patient ED course: 45-year-old female with 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 I did contact her pace analyst who recommended we hold off on placing the feeding tube at this point and follow-up with her for trial of motility agent. The patient feels somewhat improved after hydration with 2 L of saline.She is given some Zofran as well for nausea. Departure - Departure Disposition: 01 Home, Self Care Clinical Impression: Dehydration, Nausea Condition: Stable Instructions: ED Dehydration, ED Nausea Vomiting Follow-Up: Raya Guevara PA [Primary Care Provider] - Prescriptions: Ondansetron Odt [Zofran] 4 mg TL Q6H PRN #10 tablet PRN Reason: Nausea / Vomiting Comments: Today you appear a bit dehydrated and the recommendation is to hydrate orally with fluids such as Gatorade or Pedialyte. Follow-up with your gas troenterologist next week for reevaluation of your motility disorder.
[2020-05-02] MEDS ORDERED: ONDANSETRON 4 MG/2 ML VIAL IVP STA (14:42)
[2020-05-02 16:19] VITALS: BP 118/86
== END 2020-05-02 16:25 | disposition home or self-care (01) ==
LOC: ED 12:35
DX: E86.0 Dehydration (principal); R11.2 Nausea with vomiting, unspecified; K30 Functional dyspepsia
CPT/HCPCS: 36415; 80053; 80306; 81001; 81003; 83605; 83690; 85025; 87086; 96361; 96374; 99284

== ENCOUNTER 2020-05-26 07:00 | Outpatient (CLI) | payer BC, OTHER ==
[2020-06-02 10:01] LABS: COLLECTION DURATION RANDOM h; TOTAL SPECIMEN WEIGHT 16 g
== END 2020-05-26 23:59 | disposition home or self-care (01) ==
LOC: LAB.R 07:00
PROVIDERS: ATTEND Internal Medicine Gastroenterology
DX: K90.9 Intestinal malabsorption, unspecified (principal)
CPT/HCPCS: 81599; 82710; 83520

== ENCOUNTER 2020-05-31 19:35 | Emergency (ER) | payer BC ==
[2020-05-31] MEDS ORDERED: HYDROmorphone 1 MG/ML CARPUJECT IVP STA ×2 (20:19→21:24)
[2020-05-31] MEDS ORDERED: METOCLOPRAMIDE 10 MG/2 ML VIAL IVP STA (20:19)
[2020-05-31] MEDS ORDERED: SODIUM CHLORIDE 0.9% 1,000 ML IV STA (20:19)
--- NOTE | 2020-05-31 20:20 | ED Physician Documentation ---
History of Present Illness - Stated complaint Stated Complaint: DIZZY,NAUSEA - Chief complaint Chief Complaint: General - History obtained from History obtained from: Patient - Additonal information Additional information: She has been having trouble since a paraesophageal hernia repair back in November. Every couple of weeks due to poor oral intake she gets dizzy and lightheaded with nausea and slight vomiting even though she is not supposed to vomit and epigastric pain. She has been taking Phenergan at home and a scopolamine patch without relief. She got dizzy here today, worse with postural changes with retching and epigastric pain again today. Review of Systems Ten Systems: 10 systems reviewed and negative Constitutional: reports: Fatigue. 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 : Kidney stones HEENT: Chronic vision loss, Chronic sinusitis Psych: Anxiety, Panic attacks Musculoskeletal: Fatigue, Chronic back pain Derm: Rosacea, Other - Past Surgical History Past Surgical History: Yes General: Cholecystectomy, Appendectomy /TURPENTINE FARMER: section, Tubal ligation, Hysterectomy - Present Medications Home Medications: Ambulatory Orders Medication Instructions Recorded Confirmed ALPRAZolam [Alprazolam] 0.25 mg PO DAILY PRN 10/24/18 08/30/19 rOPINIRole [Requip] 0.5 mg PO DAILY 02/04/19 08/30/19 EPINEPHrine [Epinephrine] 0.3 mg IJ ONCE PRN #2 auto.injct 03/27/19 08/30/19 Albuterol Sulf [Ventolin Hfa 1 - 2 puffs INH Q4HR PRN #1 inhaler 07/10/19 08/30/19 Inhaler] Cyclobenzaprine [Flexeril] 10 mg PO PRN PRN 08/30/19 08/30/19 DULoxetine [Cymbalta] 30 mg PO DAILY 08/30/19 08/30/19 Potassium Citrate [Potassium 5 meq PO DAILY 08/30/19 08/30/19 Citrate ER] Thyroid [[place] Thyroid] 60 mg PO DAILY 08/30/19 08/30/19 hydrOXYzine HCL [Hydroxyzine HCl] 25 mg PO DAILY 08/30/19 08/30/19 HYDROmorphone [Dilaudid] 1 - 2 mg PO Q6H PRN #15 tablet 10/27/19 Ondansetron Odt [Zofran] 4 mg TL Q6H PRN #20 tablet 10/27/19 Tamsulosin [Flomax] 0.4 mg PO DAILY #14 capsule 10/27/19 Promethazine [Phenergan] 25 mg PO Q6H PRN #10 tab 10/29/19 Cefdinir 300 mg PO BID #20 capsule 11/26/19 Promethazine [Phenergan] 25 mg PO Q6H PRN #10 tab 11/26/19 Ciprofloxacin HCl [Cipro] 500 mg PO BID 14 Days #27 tablet 11/27/19 Promethazine Supp [Phenergan Supp] 25 mg [place] Q6H PRN #20 supp 12/20/19 Ondansetron Odt [Zofran] 4 mg TL Q6H PRN #10 tablet 05/02/20 - Allergies Allergies/Adverse Reactions: Allergies Allergy/AdvReac Type Severity Reaction Status Date / Time blackberry Allergy Anaphylaxis Verified 05/31/20 19:47 codeine Allergy Unknown Verified 05/31/20 19:47 hydrocodone Allergy Unknown Verified 05/31/20 19:47 meperidine [From Demerol] Allergy Unknown Verified 05/31/20 19:47 oxycodone Allergy Unknown Verified 05/31/20 19:47 raspberry Allergy Anaphylaxis Verified 05/31/20 19:47 - Social History Does the pt smoke?: No Smoking Status: Never smoker Does the pt drink ETOH?: No Does the pt have substance abuse?: No - Immunizations Immunizations are current?: Yes - POLST Patient has POLST: No PD ED PE NORMAL - Vitals Vital signs reviewed: Yes - General General: Alert and oriented X 3, Other (Retching and uncomfortable) - HEENT HEENT: PERRL, EOMI - Respiratory Respiratory: No respiratory distress, Clear bilaterally - Abdomen Abdomen: Normal bowel sounds, Soft, Non tender - Neuro Neuro: Alert and oriented X 3, Normal speech Results - Vitals Vitals: Vital Signs - 24 hr 05/31/20 05/31/20 19:42 20:02 Temperature 36.2 C L 36.5 C Heart Rate 79 79 Respiratory 17 17 Rate Blood Pressure 130/92 H 130/92 H O2 Saturation 100 100 Oxygen O2 Source Room air - Labs Labs: Laboratory Tests 05/31/20 20:51 Sodium 142 Potassium 3.9 Chloride 103 Carbon Dioxide 27 Anion Gap 12.0 BUN 21 H Creatinine 0.7 Estimated GFR (MDRD) 91 Glucose 111 H Calcium 9.5 Total Bilirubin 0.6 AST 23 ALT 28 Alkaline Phosphatase 107 Total Protein 7.5 Albumin 4.0 Globulin 3.5 Albumin/Globulin Ratio 1.1 Prealbumin 30 PD MEDICAL DECISION MAKING - ED course ED course: 45-year-old woman with an exacerbation of what is previously been diagnosed as a dysmotility syndrome after paraesophageal hernia repair. Feeding tube was recently considered but her prealbumin at 30 is reassuring. She felt better after the administration of 2 L of crystalloid and some pain and nausea medicine. Remained nontender on reevaluation. Departure - Departure Disposition: 01 Home, Self Care Clinical Impression: Dehydration Abdominal pain Qualifiers: Abdominal location: epigastric Qualified Code(s): R10.13 - Epigastric pain Vomiting Qualifiers: Vomiting type: unspecified Vomiting Intractability: non-intractable Nausea presence: with nausea Qualified Code(s): R11.2 - Nausea with vomiting, unspecified Condition: Good Record reviewed to determine appropriate education?: Yes Instructions: ED Dehydration, ED Abdominal Pain Unkn Cause Comments: Call your doctor to arrange a follow-up appointment, make the next available appointment. In the interim, return anytime if worse or if new symptoms develop.
[2020-05-31 21:17] LABS: ALBUMIN/GLOBULIN RATIO 1.1 (1.0-2.2); BILIRUBIN,TOTAL 0.6 mg/dL (0.2-1.0); CALCIUM 9.5 mg/dL (8.5-10.3); CREATININE 0.7 mg/dL (0.4-1.0); TOTAL PROTEIN 7.5 g/dL (6.7-8.2)
[2020-05-31] MEDS ORDERED: LACTATED RINGERS 1,000 ML IV ONE (21:24)
[2020-05-31] MEDS ORDERED: KETOROLAC 30 MG/ML VIAL IVP STA (22:05)
[2020-05-31 23:14] VITALS: BP 111/84
== END 2020-05-31 23:13 | disposition home or self-care (01) ==
LOC: ED 19:35
DX: E86.0 Dehydration (principal); R10.13 Epigastric pain; R11.2 Nausea with vomiting, unspecified; Z98.890 Other specified postprocedural states
CPT/HCPCS: 36415; 80053; 84134; 96361; 96374; 96375; 96376; 99283; 99284; J1170; J2765; J7120

== ENCOUNTER 2020-06-05 18:15 | Emergency (ER) | payer BC ==
[2020-06-05] MEDS ORDERED: KETAMINE IVP STA (20:08)
[2020-06-05] MEDS ORDERED: SODIUM CHLORIDE 0.9% IVP STA (20:08)
[2020-06-05] MEDS ORDERED: SODIUM CHLORIDE 0.9% 1,000 ML IV STA ×2 (20:08→22:16)
[2020-06-05 20:23] LABS: BILIRUBIN,URINE NEGATIVE (NEGATIVE); GLUCOSE, URINE (UA) NEGATIVE (NEGATIVE); KETONES,URINE (UA) NEGATIVE (NEGATIVE); LEUKOCYTE ESTERASE, URINE TRACE (NEGATIVE); NITRITE,URINE NEGATIVE (NEGATIVE); OCCULT BLOOD,URINE NEGATIVE (NEGATIVE); PROTEIN,URINE NEGATIVE (NEGATIVE); UROBILINOGEN,URINE 0.2 (NORMAL) E.U./dL (NORMAL)
[2020-06-05] MEDS ORDERED: KETAMINE 500 MG/10 ML VIAL ONE (20:24)
[2020-06-05 20:25] LABS: CLARITY,URINE CLEAR (CLEAR)
[2020-06-05 20:35] LABS: BACTERIA,URINE Rare /HPF (None Seen); RBC,URINE None Seen /HPF (0-5); SQUAMOUS EPITHELIAL CELL,UR MOD Squamous (<= Few)
[2020-06-05 20:43] LABS: BASOPHILS % (AUTO) 0.4 %; EOSINOPHILS # (AUTO) 0.2 10^3/uL (0.0-0.7); EOSINOPHILS % (AUTO) 1.6 %; HGB - HEMOGLOBIN 13.8 g/dL (12.0-16.0); LYMPHOCYTES # (AUTO) 3.2 10^3/uL (1.5-3.5); LYMPHOCYTES % (AUTO) 30.4 %; MEAN CORPUSCULAR HEMOGLOBIN 28.4 pg (27.0-31.0); MEAN CORPUSCULAR HGB CONC 32.4 g/dL (32.0-36.0); MEAN CORPUSCULAR VOLUME 87.7 fL (81.0-99.0); MEAN PLATELET VOLUME 10.6 fL (7.9-10.8); MONOCYTES # (AUTO) 0.7 10^3/uL (0.0-1.0); MONOCYTES % (AUTO) 6.2 %; NEUTROPHILS # (AUTO) 6.4 10^3/uL (1.5-6.6); NEUTROPHILS % (AUTO) 60.9 %; PLT - PLATELET COUNT 242 10^3/uL (130-450); RED BLOOD COUNT 4.86 10^6/uL (4.20-5.40); RED CELL DISTRIBUTION WIDTH 14.4 % (12.0-15.0); WHITE BLOOD COUNT 10.6 x10^3/uL (4.8-10.8)
[2020-06-05 20:57] LABS: ALBUMIN 4.3 g/dL (3.2-5.5); ALBUMIN/GLOBULIN RATIO 1.4 (1.0-2.2); BILIRUBIN,TOTAL 0.7 mg/dL (0.2-1.0); CALCIUM 9.5 mg/dL (8.5-10.3); CREATININE 0.7 mg/dL (0.4-1.0); TOTAL PROTEIN 7.4 g/dL (6.7-8.2)
--- NOTE | 2020-06-05 21:03 | ED Physician Documentation ---
PD HPI NVD - Stated complaint Stated Complaint: DIZZY - Chief complaint Chief Complaint: Abd Pain - History obtained from History obtained from: Patient - History of Present Illness Timing - onset: Today Timing - duration: Hours Timing - details: Gradual onset, Still present Associated symptoms: Abdominal pain, Other (vomiting) Contributing factors: Other (hx of paraesophageal hernia repair in november of this year) Improved by: Meds Worsened by: Eating Similar symptoms before: Diagnosis (dehydration) Recently seen: Emergency Dept - Additonal information Additional information: 45-year-old female has had a lot of problems with nausea and vomiting and she has been in to have a paraesophageal hernia repaired in November of this year and since that time she has continued to have the same problem with nausea and vomiting. She feels that this is somewhat worse. She has had to have hydration done in the emergency department previously and she recently has had this done as well. She is looking to get a referral for saline infusion at the [facility]. The patient notes that she has had trouble with food when she eats it that she will get nauseated and she is recently recognized that she is even getting nauseated at the thought of having a meal. Review of Systems Constitutional: denies: Fever Eyes: denies: Decreased vision Ears: denies: Ear pain Nose: denies: Congestion Throat: denies: Sore throat Cardiac: denies: Chest pain / pressure, Palpitations Respiratory: denies: Dyspnea, Cough GI: reports: Abdominal Pain, Nausea, Vomiting. denies: Abdominal Swelling, Constipation, Diarrhea : denies: Dysuria, Frequency PD PAST MEDICAL HISTORY - Past Medical History Past Medical History: Yes Cardiovascular: None Respiratory: None Neuro: None Endocrine/Autoimmune: HyPOthyroidism GI: Hiatal hernia EXHIBIT ARTIST: None : Kidney stones HEENT: Chronic vision loss, Chronic sinusitis Psych: Anxiety, Panic attacks Musculoskeletal: Fatigue, Chronic back pain Derm: Rosacea, Other - Past Surgical History Past Surgical History: Yes General: Cholecystectomy, Appendectomy /EXHIBIT ARTIST: section, Tubal ligation, Hysterectomy - Present Medications Home Medications: Ambulatory Orders Medication Instructions Recorded Confirmed ALPRAZolam [Alprazolam] 0.25 mg PO DAILY PRN 10/24/18 08/30/19 rOPINIRole [Requip] 0.5 mg PO DAILY 02/04/19 08/30/19 EPINEPHrine [Epinephrine] 0.3 mg IJ ONCE PRN #2 auto.injct 03/27/19 08/30/19 Albuterol Sulf [Ventolin Hfa 1 - 2 puffs INH Q4HR PRN #1 inhaler 07/10/19 08/30/19 Inhaler] Cyclobenzaprine [Flexeril] 10 mg PO PRN PRN 08/30/19 08/30/19 DULoxetine [Cymbalta] 30 mg PO DAILY 08/30/19 08/30/19 Potassium Citrate [Potassium 5 meq PO DAILY 08/30/19 08/30/19 Citrate ER] Thyroid [[place] Thyroid] 60 mg PO DAILY 08/30/19 08/30/19 hydrOXYzine HCL [Hydroxyzine HCl] 25 mg PO DAILY 08/30/19 08/30/19 HYDROmorphone [Dilaudid] 1 - 2 mg PO Q6H PRN #15 tablet 10/27/19 Ondansetron Odt [Zofran] 4 mg TL Q6H PRN #20 tablet 10/27/19 Tamsulosin [Flomax] 0.4 mg PO DAILY #14 capsule 10/27/19 Promethazine [Phenergan] 25 mg PO Q6H PRN #10 tab 10/29/19 Cefdinir 300 mg PO BID #20 capsule 11/26/19 Promethazine [Phenergan] 25 mg PO Q6H PRN #10 tab 11/26/19 Ciprofloxacin HCl [Cipro] 500 mg PO BID 14 Days #27 tablet 11/27/19 Promethazine Supp [Phenergan Supp] 25 mg [place] Q6H PRN #20 supp 12/20/19 Ondansetron Odt [Zofran] 4 mg TL Q6H PRN #10 tablet 05/02/20 Ketorolac [Toradol] 10 mg PO Q6H PRN 10 Days #30 tablet 05/31/20 - Allergies Allergies/Adverse Reactions: Allergies Allergy/AdvReac Type Severity Reaction Status Date / Time blackberry Allergy Anaphylaxis Verified 06/05/20 18:45 codeine Allergy Unknown Verified 06/05/20 18:45 hydrocodone Allergy Unknown Verified 06/05/20 18:45 meperidine [From Demerol] Allergy Unknown Verified 06/05/20 18:45 oxycodone Allergy Unknown Verified 11/12/20 18:45 raspberry Allergy Anaphylaxis Verified 06/05/20 18:45 - Social History Does the pt smoke?: No Smoking Status: Never smoker Does the pt drink ETOH?: No Does the pt have substance abuse?: No - Immunizations Immunizations are current?: Yes - POLST Patient has POLST: No PD ED PE NORMAL - Vitals Vital signs reviewed: Yes (hypertensive ) - General General: Alert and oriented X 3, No acute distress, Well developed/nourished - HEENT HEENT: Atraumatic, PERRL, EOMI, Ears normal - Neck Neck: Supple, no meningeal sign, No bony TTP - Cardiac Cardiac: RRR, No murmur - Respiratory Respiratory: No respiratory distress, Clear bilaterally - Abdomen Abdomen: Normal bowel sounds, Soft, Non distended, No organomegaly, Other (mild epigastric tenderness to palpation ) - Back Back: No CVA TTP, No spinal TTP - Derm Derm: Normal color, Warm and dry, No rash - Extremities Extremities: No deformity, No edema - Neuro Neuro: Alert and oriented X 3, property investor 2-12 intact, No motor deficit, No sensory deficit, Normal speech Eye Opening: Spontaneous Motor: Obeys Commands Verbal: Oriented GCS Score: 15 - Psych Psych: Normal mood, Normal affect Results - Vitals Vitals: Vital Signs - 24 hr 06/05/20 06/05/20 06/05/20 18:45 18:48 20:48 Temperature 37.1 C 37.1 C Heart Rate 77 77 83 Respiratory 16 14 18 Rate Blood Pressure 134/100 H 134/100 H 130/90 H O2 Saturation 100 100 98 06/05/20 06/05/20 22:00 23:49 Temperature 36.6 C Heart Rate 75 82 Respiratory 18 15 Rate Blood Pressure 95/70 116/86 H O2 Saturation 98 99 Oxygen O2 Source Room air - Labs Labs: Laboratory Tests 06/05/20 06/05/20 06/05/20 20:16 20:39 20:39 WBC 10.6 RBC 4.86 Hgb 13.8 Hct 42.6 MCV 87.7 MCH 28.4 MCHC 32.4 RDW 14.4 Plt Count 242 MPV 10.6 Neut # (Auto) 6.4 Lymph # (Auto) 3.2 [place] # (Auto) 0.7 Eos # (Auto) 0.2 Baso # (Auto) 0.0 Absolute Nucleated RBC 0.00 Nucleated RBC % 0.0 Sodium 140 Potassium 3.4 L Chloride 102 Carbon Dioxide 26 Anion Gap 12.0 BUN 17 Creatinine 0.7 Estimated GFR (MDRD) 91 Glucose 99 Calcium 9.5 Total Bilirubin 0.7 AST 26 ALT 51 Alkaline Phosphatase 109 Total Protein 7.4 Albumin 4.3 Globulin 3.1 Albumin/Globulin Ratio 1.4 Lipase 34 Urine Color YELLOW Urine Clarity CLEAR Urine pH 6.0 Ur Specific [place] 1.020 Urine Protein NEGATIVE Urine Glucose (UA) NEGATIVE Urine Ketones NEGATIVE Urine Occult Blood NEGATIVE Urine Nitrite NEGATIVE Urine Bilirubin NEGATIVE Urine Urobilinogen 0.2 (NORMAL) Ur Leukocyte Esterase TRACE H Urine RBC None Seen Urine WBC 0-3 Ur Squamous Epith Cells MOD Squamous H Urine Bacteria Rare Ur Microscopic Review INDICATED Urine Culture Comments NOT INDICATED Procedures - IVC sono (time) 1999 Bedside IVC sono: IVC measures (cm) (0.84), Dehydration (est 2 liter deficit) PD MEDICAL DECISION MAKING - ED course Complexity details: reviewed old records, reviewed results, re-evaluated patient, considered differential, d/w patient, d/w family ED course: 45-year-old female who is had a lot of problems with her vomiting and abdominal pain has had a paraesophageal hernia repair without improvement in her symptoms. She has been in to see her doctors a lot and she is not found a specific reason to continue to have this issue with vomiting. She has had a endoscopy and CT. Today she is found to be dehydrated on interrogation the inferior vena cava and she is administered some saline intravenously. She indicated when she came in that she felt that that she was now developing nausea at the thought of eating a meal. With this in mind I thought it might be possible to reset her VC and I offered her a ketamine infusion. We shared decision making it was elected to proceed with this and about chcf through the infusion the patient turned red began to vomit and was disoriented and the infusion was stopped.She required a dose of Phenergan and a second liter was infused. The interesting note was that, at the conclusion of treatment, the patient felt much improved, had a smile on her face and had no specific symptoms. Departure - Departure Disposition: 01 Home, Self Care Clinical Impression: Dehydration Condition: Stable Instructions: ED Dehydration Follow-Up: Raya Guevara PA [Primary Care Provider] - Discharge Date/Time: 06/06/20 00:03
[2020-06-05] MEDS ORDERED: ONDANSETRON 4 MG/2 ML VIAL IVP STA (21:10)
[2020-06-05] MEDS ORDERED: PROMETHAZINE INJ 25 MG in SODIUM CHLORIDE 0.9% 50 ML IV STA (22:16)
[2020-06-05] MEDS ORDERED: PROMETHAZINE 25 MG/1 ML VIAL ONE (22:27)
[2020-06-05 23:50] VITALS: BP 116/86
== END 2020-06-06 00:03 | disposition home or self-care (01) ==
LOC: ED 18:15
DX: R11.2 Nausea with vomiting, unspecified (principal); T80.89XA Other complications following infusion, transfusion and therapeutic injection, initial encounter; E86.0 Dehydration; R03.0 Elevated blood-pressure reading, without diagnosis of hypertension
CPT/HCPCS: 36415; 80053; 81001; 83690; 85025; 96361; 96374; 96375; 99284; J7040; 81003; 87086

== ENCOUNTER 2020-08-03 21:42 | Emergency (ER) | payer BC ==
--- NOTE | 2020-08-03 21:46 | ED Physician Documentation ---
PD HPI NVD - Stated complaint Stated Complaint: N/V - History obtained from History obtained from: Patient - History of Present Illness Timing - onset: Chronic Timing - details: Waxing and waning Pain level now: 5 Associated symptoms: Abdominal pain. No: Fever Recently seen: Not recently seen - Additonal information Additional information: c/o worsening of her chronic nausea and vomiting over past 2 days with waxing and waning upper abdominal pain. n/v has progressed to the point of not tolerating any PO. She has zofran and phenergan at home for nausea. Review of Systems Constitutional: denies: Fever, Chills, Sweats Cardiac: reports: Reviewed and negative Respiratory: reports: Reviewed and negative GI: reports: Abdominal Pain, Nausea, Vomiting. denies: Abdominal Swelling, C onstipation, Diarrhea : denies: Dysuria, Frequency PD PAST MEDICAL HISTORY - Past Medical History Cardiovascular: None Respiratory: None Neuro: None Endocrine/Autoimmune: HyPOthyroidism GI: Hiatal hernia SHEAR TENDER: None : Kidney stones HEENT: Chronic vision loss, Chronic sinusitis Psych: Anxiety, Panic attacks Musculoskeletal: Fatigue, Chronic back pain Derm: Rosacea, Other - Past Surgical History Past Surgical History: Yes General: Cholecystectomy, Appendectomy /SHEAR TENDER: section, Tubal ligation, Hysterectomy - Present Medications Home Medications: Ambulatory Orders Medication Instructions Recorded Confirmed ALPRAZolam [Alprazolam] 0.25 mg PO DAILY PRN 10/24/18 08/03/20 rOPINIRole [Requip] 0.5 mg PO DAILY 02/04/19 08/03/20 EPINEPHrine [Epinephrine] 0.3 mg IJ ONCE PRN #2 auto.injct 03/27/19 08/03/20 Albuterol Sulf [Ventolin Hfa 1 - 2 puffs INH Q4HR PRN #1 inhaler 07/10/19 08/03/20 Inhaler] Cyclobenzaprine [Flexeril] 10 mg PO PRN PRN 08/30/19 08/03/20 DULoxetine [Cymbalta] 30 mg PO DAILY 08/30/19 08/03/20 Thyroid [[place] Thyroid] 60 mg PO DAILY 08/30/19 08/03/20 Promethazine [Phenergan] 25 mg PO Q6H PRN #10 tab 05/04/20 01/10/21 Ondansetron Odt [Zofran] 4 mg TL Q6H PRN #10 tablet 05/02/20 08/03/20 Meclizine [Antivert] 12.5 mg PRN 08/03/20 - Allergies Allergies/Adverse Reactions: Allergies Allergy/AdvReac Type Severity Reaction Status Date / Time blackberry Allergy Anaphylaxis Verified 06/05/20 18:45 codeine Allergy Unknown Verified 06/05/20 18:45 hydrocodone Allergy Unknown Verified 06/05/20 18:45 meperidine [From Demerol] Allergy Unknown Verified 06/05/20 18:45 oxycodone Allergy Unknown Verified 06/05/20 18:45 raspberry Allergy Anaphylaxis Verified 06/05/20 18:45 - Social History Does the pt smoke?: No Smoking Status: Never smoker Does the pt drink ETOH?: No Does the pt have substance abuse?: No - Immunizations Immunizations are current?: Yes - POLST Patient has POLST: No PD ED PE NORMAL - Vitals Vital signs reviewed: Yes - General General: Alert and oriented X 3, No acute distress, Well developed/nourished - HEENT HEENT: Moist mucous membranes - Neck Neck: Supple, no meningeal sign - Cardiac Cardiac: RRR, No murmur - Respiratory Respiratory: No respiratory distress, Clear bilaterally - Abdomen Abdomen: Soft, Non distended, Other (mild TTP across upper abdomen, worst in epigastrium, without rebound or guarding) - Derm Derm: Normal color, Warm and dry Results - Vitals Vitals: Vital Signs - 24 hr 08/03/20 08/03/20 08/04/20 21:45 23:56 00:40 Temperature 36.7 C 36.5 C 36.7 C Heart Rate 84 85 85 Respiratory 16 16 16 Rate Blood Pressure 149/101 H 123/71 132/72 H O2 Saturation 100 98 98 Oxygen O2 Source Room air - Labs Labs: Laboratory Tests 08/03/20 08/03/20 22:28 22:28 WBC 7.3 RBC 4.43 Hgb 12.5 Hct 39.1 MCV 88.3 MCH 28.2 MCHC 32.0 RDW 13.9 Plt Count 223 MPV 10.6 Neut # (Auto) 4.2 Lymph # (Auto) 2.3 [place] # (Auto) 0.6 Eos # (Auto) 0.2 Baso # (Auto) 0.0 Absolute Nucleated RBC 0.00 Nucleated RBC % 0.0 Sodium 143 Potassium 3.4 L Chloride 106 Carbon Dioxide 26 Anion Gap 11.0 BUN 23 H Creatinine 0.6 Estimated GFR (MDRD) 109 Glucose 140 H Calcium 8.7 Total Bilirubin 0.6 AST 22 ALT 24 Alkaline Phosphatase 87 Total Protein 6.5 L Albumin 3.7 Globulin 2.8 Albumin/Globulin Ratio 1.3 Lipase 40 PD MEDICAL DECISION MAKING - ED course Complexity details: reviewed old records, reviewed results, re-evaluated patient, considered differential, d/w patient ED course: presents with exacerbation of chronic n/v. Previous ED notes from last year indicate [facility] ED visits for similar c/o (n/v and upper abdominal pain) without apparent diagnosed cause. Tonight, she is given 2 liters NS IV and 8mg IV zofran (considered phenergan, but patient drove to ED and indicates she plans to drive back home). Unremarkable results on blood tests. She required a third dose of zofran (4mg for total of 12mg IV), but she reported feeling well enough for discharge prior to completion of the full 2 liters NS. She says she has enough antinauseants still at home and thus does not need rx Departure - Departure Disposition: 01 Home, Self Care Clinical Impression: Nausea and vomiting Condition: Good Instructions: ED Nausea Vomiting Follow-Up: Raya Guevara PA [Primary Care Provider] - Discharge Date/Time: 08/04/20 00:52
[2020-08-03] MEDS ORDERED: ONDANSETRON 4 MG/2 ML VIAL IVP STA ×2 (21:57→22:55)
[2020-08-03] MEDS ORDERED: SODIUM CHLORIDE 0.9% 1,000 ML IV STA ×2 (21:57→22:14)
[2020-08-03 22:35] LABS: BASOPHILS % (AUTO) 0.4 %; EOSINOPHILS # (AUTO) 0.2 10^3/uL (0.0-0.7); EOSINOPHILS % (AUTO) 2.3 %; HGB - HEMOGLOBIN 12.5 g/dL (12.0-16.0); LYMPHOCYTES # (AUTO) 2.3 10^3/uL (1.5-3.5); MEAN CORPUSCULAR HEMOGLOBIN 28.2 pg (27.0-31.0); MEAN CORPUSCULAR VOLUME 88.3 fL (81.0-99.0); MEAN PLATELET VOLUME 10.6 fL (7.9-10.8); MONOCYTES # (AUTO) 0.6 10^3/uL (0.0-1.0); MONOCYTES % (AUTO) 7.8 %; NEUTROPHILS # (AUTO) 4.2 10^3/uL (1.5-6.6); NEUTROPHILS % (AUTO) 57.2 %; PLT - PLATELET COUNT 223 10^3/uL (130-450); RED BLOOD COUNT 4.43 10^6/uL (4.20-5.40); RED CELL DISTRIBUTION WIDTH 13.9 % (12.0-15.0); WHITE BLOOD COUNT 7.3 x10^3/uL (4.8-10.8)
[2020-08-03 22:48] LABS: ALBUMIN 3.7 g/dL (3.2-5.5); ALBUMIN/GLOBULIN RATIO 1.3 (1.0-2.2); BILIRUBIN,TOTAL 0.6 mg/dL (0.2-1.0); CALCIUM 8.7 mg/dL (8.5-10.3); CREATININE 0.6 mg/dL (0.4-1.0); TOTAL PROTEIN 6.5 g/dL (6.7-8.2)
[2020-08-04 00:41] VITALS: BP 132/72
== END 2020-08-04 00:52 | disposition home or self-care (01) ==
LOC: ED 21:42
DX: R11.2 Nausea with vomiting, unspecified (principal); R10.13 Epigastric pain
CPT/HCPCS: 80053; 83690; 85025; 96361; 96374; 99284

== ENCOUNTER 2020-08-05 19:42 | Emergency (ER) | payer BC ==
[2020-08-05 20:47] LABS: BASOPHILS % (AUTO) 0.3 %; EOSINOPHILS # (AUTO) 0.1 10^3/uL (0.0-0.7); EOSINOPHILS % (AUTO) 0.8 %; HGB - HEMOGLOBIN 13.9 g/dL (12.0-16.0); LYMPHOCYTES # (AUTO) 2.5 10^3/uL (1.5-3.5); LYMPHOCYTES % (AUTO) 23.8 %; MEAN CORPUSCULAR HEMOGLOBIN 28.5 pg (27.0-31.0); MEAN CORPUSCULAR VOLUME 86.3 fL (81.0-99.0); MEAN PLATELET VOLUME 10.8 fL (7.9-10.8); MONOCYTES # (AUTO) 0.8 10^3/uL (0.0-1.0); MONOCYTES % (AUTO) 7.8 %; NEUTROPHILS # (AUTO) 6.9 10^3/uL (1.5-6.6); NEUTROPHILS % (AUTO) 67.1 %; PLT - PLATELET COUNT 290 10^3/uL (130-450); RED BLOOD COUNT 4.88 10^6/uL (4.20-5.40); RED CELL DISTRIBUTION WIDTH 13.9 % (12.0-15.0); WHITE BLOOD COUNT 10.3 x10^3/uL (4.8-10.8)
[2020-08-05 20:58] LABS: ALBUMIN 4.2 g/dL (3.2-5.5); ALBUMIN/GLOBULIN RATIO 1.1 (1.0-2.2); BILIRUBIN,TOTAL 0.6 mg/dL (0.2-1.0); CALCIUM 9.6 mg/dL (8.5-10.3); CREATININE 0.5 mg/dL (0.4-1.0); TOTAL PROTEIN 7.9 g/dL (6.7-8.2)
[2020-08-05 21:01] VITALS: BP 132/95
[2020-08-05] MEDS ORDERED: ONDANSETRON 4 MG/2 ML VIAL IVP STA (21:11)
[2020-08-05] MEDS ORDERED: SODIUM CHLORIDE 0.9% 1,000 ML IV STA (21:11)
[2020-08-05] MEDS ORDERED: PROMETHAZINE INJ 25 MG in SODIUM CHLORIDE 0.9% 50 ML IV STA (21:19)
[2020-08-05 21:20] LABS: BILIRUBIN,URINE NEGATIVE (NEGATIVE); GLUCOSE, URINE (UA) NEGATIVE (NEGATIVE); KETONES,URINE (UA) NEGATIVE (NEGATIVE); LEUKOCYTE ESTERASE, URINE NEGATIVE (NEGATIVE); NITRITE,URINE NEGATIVE (NEGATIVE); OCCULT BLOOD,URINE NEGATIVE (NEGATIVE); PROTEIN,URINE NEGATIVE (NEGATIVE); UROBILINOGEN,URINE 0.2 (NORMAL) E.U./dL (NORMAL)
[2020-08-05 21:22] LABS: CLARITY,URINE CLEAR (CLEAR)
[2020-08-05 21:23] LABS: HCG UR QUAL NEGATIVE
--- NOTE | 2020-08-05 21:35 | ED Physician Documentation ---
History of Present Illness - Stated complaint Stated Complaint: DIZZY,NAUSEA,VOMITING - Chief complaint Chief Complaint: Abd Pain - Additonal information Additional information: 45-year-old female presents the emergency department with uncontrolled vomiting and dizziness. 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 However recently the repair has failed. She has been followed by GI through [place]. She recently had a swallow study completed 1 week ago at [facility]. Patient reports that the upper section of her esophagus appeared normal but the mid to lower section had persistent spasm She reports a history of chronic nausea dizziness and vomiting. This was primarily being managed with a scopolamine patch. However because she has been using the patches consistently since November her doctors have advised her to reduce the use of the scopolamine. She has not used a patch since Tuesday. Since then she has had persistent dizziness and uncontrolled vomiting. She denies fevers. She has epigastric abdominal pain unchanged from baseline. Denies bloody vomit or stools. Patient had an ED visit for similar 2 days ago. Review of Systems Constitutional: denies: Fever, Chills Eyes: reports: Reviewed and negative Ears: reports: Reviewed and negative Nose: reports: Reviewed and negative Throat: reports: Reviewed and negative Cardiac: reports: Reviewed and negative Respiratory: reports: Dyspnea GI: reports: Abdominal Pain, Nausea, Vomiting. denies: Hematemesis, Bloody / black stool : denies: Dysuria, Frequency, Hesitancy Skin: reports: Reviewed and negative Musculoskeletal: reports: Reviewed and negative Neurologic: reports: Other (dizziness) PD PAST MEDICAL HISTORY - Past Medical History Past Medical History: Yes Cardiovascular: None Respiratory: None Neuro: None Endocrine/Autoimmune: HyPOthyroidism GI: Hiatal hernia BENCH INSPECTOR: None : Kidney stones HEENT: Chronic vision loss, Chronic sinusitis Psych: Anxiety, Panic attacks Musculoskeletal: Fatigue, Chronic back pain Derm: Rosacea, Other - Past Surgical History Past Surgical History: Yes General: Cholecystectomy, Appendectomy /BENCH INSPECTOR: section, Tubal ligation, Hysterectomy - Present Medications Home Medications: Ambulatory Orders Medication Instructions Recorded Confirmed ALPRAZolam [Alprazolam] 0.25 mg PO DAILY PRN 10/24/18 08/03/20 rOPINIRole [Requip] 0.5 mg PO DAILY 02/04/19 08/03/20 EPINEPHrine [Epinephrine] 0.3 mg IJ ONCE PRN #2 auto.injct 03/27/19 08/03/20 Albuterol Sulf [Ventolin Hfa 1 - 2 puffs INH Q4HR PRN #1 inhaler 07/10/19 08/03/20 Inhaler] Cyclobenzaprine [Flexeril] 10 mg PO PRN PRN 08/30/19 08/03/20 DULoxetine [Cymbalta] 30 mg PO DAILY 08/30/19 08/03/20 Thyroid [[place] Thyroid] 60 mg PO DAILY 08/30/19 08/03/20 Promethazine [Phenergan] 25 mg PO Q6H PRN #10 tab 11/26/19 08/03/20 Ondansetron Odt [Zofran] 4 mg TL Q6H PRN #10 tablet 05/02/20 08/03/20 Meclizine [Antivert] 12.5 mg PRN 08/03/20 - Allergies Allergies/Adverse Reactions: Allergies Allergy/AdvReac Type Severity Reaction Status Date / Time blackberry Allergy Anaphylaxis Verified 08/05/20 19:54 codeine Allergy Unknown Verified 08/05/20 19:54 hydrocodone Allergy Unknown Verified 08/05/20 19:54 meperidine [From Demerol] Allergy Unknown Verified 08/05/20 19:54 oxycodone Allergy Unknown Verified 08/05/20 19:54 raspberry Allergy Anaphylaxis Verified 08/05/20 19:54 - Social History Does the pt smoke?: No Smoking Status: Never smoker Does the pt drink ETOH?: No Does the pt have substance abuse?: No - Immunizations Immunizations are current?: Yes - POLST Patient has POLST: No PD ED PE EXPANDED - General General: Alert, No acute distress - Cardiac Cardiac: Regular Rate, Radial strong equal, Cap refill < 2 sec - Respiratory Respiratory: Clear to ausultation billy. No: Distress, Labored - Abdomen Abdomen: Hyperactive BS, Tender to palpation, Epigastric (Epigastric tenderness to palpation without guarding or rebound). No: Rebound, Guarding - Derm Derm: Normal color. No: Rash - Extremities Extremities: Normal. No: Deformity, Tenderness - Neuro Neuro: Alert and Oriented X 3, CNII-XII intact, Normal gait, Normal finger nose, Normal speech. No: Nystagmus - GCS Eye Opening: Spontaneous Motor: Obeys Commands Verbal: Oriented Total: 15 Results - Vitals Vitals: Vital Signs - 24 hr 08/05/20 08/05/20 19:54 21:00 Temperature 36.5 C 36.5 C Heart Rate 90 88 Respiratory 16 16 Rate Blood Pressure 133/98 H 132/95 H O2 Saturation 98 98 Oxygen O2 Source Room air - Labs Labs: Laboratory Tests 08/05/20 08/05/20 08/05/20 20:40 20:40 21:06 WBC 10.3 RBC 4.88 Hgb 13.9 Hct 42.1 MCV 86.3 MCH 28.5 MCHC 33.0 RDW 13.9 Plt Count 290 MPV 10.8 Neut # (Auto) 6.9 H Lymph # (Auto) 2.5 [place] # (Auto) 0.8 Eos # (Auto) 0.1 Baso # (Auto) 0.0 Absolute Nucleated RBC 0.00 Nucleated RBC % 0.0 Sodium 140 Potassium 3.4 L Chloride 107 Carbon Dioxide 24 Anion Gap 9.0 BUN 18 Creatinine 0.5 Estimated GFR (MDRD) 134 Glucose 118 H Calcium 9.6 Total Bilirubin 0.6 AST 22 ALT 25 Alkaline Phosphatase 95 Total Protein 7.9 Albumin 4.2 Globulin 3.7 Albumin/Globulin Ratio 1.1 Lipase 35 Urine Color YELLOW Urine Clarity CLEAR Urine pH 7.0 Ur Specific [place] 1.020 Urine Protein NEGATIVE Urine Glucose (UA) NEGATIVE Urine Ketones NEGATIVE Urine Occult Blood NEGATIVE Urine Nitrite NEGATIVE Urine Bilirubin NEGATIVE Urine Urobilinogen 0.2 (NORMAL) Ur Leukocyte Esterase NEGATIVE Ur Microscopic Review NOT INDICATED Urine Culture Comments NOT INDICATED Urine HCG, Qual NEGATIVE PD MEDICAL DECISION MAKING - ED course Complexity details: reviewed results, re-evaluated patient, considered differential, d/w patient ED course: 45-year-old female presents the emergency department with uncontrolled nausea and vomiting. This is in the setting of a history of paraesophageal hernia status post repair with poor motility. Seen in this ED for similar 2 days ago. Here on exam her labs are essentially unremarkable without leukocytosis. Unchanged from visit 2 days ago. She did have epigastric pain but no guarding or rebound. CT imaging is not likely helpful at this juncture. Patient was given 1 L of IV fluids as well as Zofran and Phenergan here in the emergency department With marked improvement of her symptoms. She was then tolerating sips of clear liquids. She will be discharged home. She declined the need for antiemetic prescription. I advised close f/u with her primary care provider. Emergent return precautions discussed Departure - Departure Disposition: Home, Self Care Clinical Impression: Nausea and vomiting Qualifiers: Vomiting type: unspecified Vomiting Intractability: non-intractable Qualified Code(s): R11.2 - Nausea with vomiting, unspecified Condition: Stable Comments: October it is important that you continue to follow-up with your primary care providers for long-term evaluation of your chronic dizziness and vomiting. Your labs today were essentially normal. you were given zofran and phenergran [facility] ED for nausea. if at any point you have bloody vomit, black or bloody stools please return to the ED for a second evaluation
[2020-08-05] MEDS ORDERED: PROMETHAZINE 25 MG/1 ML VIAL ONE (21:37)
--- OUTSIDE RECORDS SUMMARY | 2020-08-06 04:55 | EXTERNAL MEDICAL SUMMARY RPT | Continuity of Care Document ---
:1975 Demographics Phone Unavailable Preferred Language French Marital Status Unknown Sikh Affiliation Unknown Race Unknown Ethnic Group Unknown Author Organization [place] Address [address] [id number] Phone Care Team Providers Name Role Phone Holiday Unavailable Unavailable KO Unavailable Unavailable Problems date description facility 2020-03-20 09:00 NAUSEA WITH VOMITING, UNSPECIFIED [facility] 2020-05-17 18:22 Nausea [facility] [employer] [facility] 2020-05-26 00:00 INTESTINAL MALABSORPTION, [facility] UNSPECIFIED 2020-05-26 07:00 INTESTINAL MALABSORPTION, [facility] UNSPECIFIED 2020-05-31 19:35 DEHYDRATION [facility] 2020-05-31 19:35 EPIGASTRIC PAIN [facility] 2020-05-31 19:35 NAUSEA WITH VOMITING, UNSPECIFIED [facility] 2020-05-31 19:35 OTHER SPECIFIED POSTPROCEDURAL [facility] STATES 2020-06-05 18:15 DEHYDRATION [facility] 2020-06-05 18:15 ELEVATED BLOOD-PRESSURE READING, [facility] W/O DIAGNOSIS OF 2020-06-05 18:15 NAUSEA WITH VOMITING, UNSPECIFIED [facility] 2020-06-05 18:15 OTH COMP FOL INFUSION, TRANSFUSE [facility] AND THERAPUTC INJ 2020-07-02 08:25 NAUSEA [facility] 2020-07-02 09:15 NAUSEA [facility] 2020-07-09 08:30 NAUSEA [facility] 2020-07-11 08:30 NAUSEA [facility] 2020-07-16 08:30 NAUSEA [facility] 2020-07-23 10:00 NAUSEA WITH VOMITING, UNSPECIFIED [facility] 2020-07-30 09:15 NAUSEA WITH VOMITING, UNSPECIFIED [facility] 2020-07-30 15:02 NAUSEA WITH VOMITING, UNSPECIFIED [facility] 2020-08-01 08:45 NAUSEA WITH VOMITING, UNSPECIFIED [facility] Allergies date description facility AMITRIPTYLINE [facility] BUPRENORPHINE HCL [facility] CELECOXIB [facility] CEPHALEXIN [facility] CIPROFLOXACIN [facility] DRONABINOL [facility] ENOXAPARIN [facility] FLURBIPROFEN [facility] IBUPROFEN [facility] LAMOTRIGINE [facility] LEVOFLOXACIN [facility] MERCURY [facility] METOLAZONE [facility] NOR[facility]IPTYLINE [facility] OLANZAPINE [facility]IN [facility] P[facility]IN V [facility] PR[facility]NISONE [facility] ROFECOXIB [facility] SALSALATE [facility] SUCRALFATE [facility] SUMATRIPTAN [facility] TOLMETIN [facility] TORSEMIDE [facility] VAL[facility]COXIB [facility] VALPROIC ACID [facility] [id number] PERTUSSIS [facility] MORPHINE AND RELATED [facility] NO KNOWN ENVIRONMENTAL ALLERGIES [facility]IDS [facility] PENICILLINS [facility] SULFA ANTIBIOTICS [facility] TETRACYCLINES \T\ RELATED [facility] UNCODED NONSCREENABLE ALLERGEN [facility] GREEN BAIRES [facility] HOPS [facility] BEE VENOM PROTEIN (HONEY BEE) [facility] CIPROFLOXACIN [facility] NIFEDIPINE [facility] NO KNOWN ALLERGIES [facility] NO ALLERGY INFORMATION AVAILABLE [facility] IODINE AND IODIDE CONTAINING PRODUCTS [facility] PENICILLINS [facility] ADHESIVE [facility] GADOLINIUM-CONTAINING CONTRAST MEDIA [facility] NO KNOWN ALLERGIES [facility] FISH CONTAINING PRODUCTS [facility] [place] SHELLFISH CONTAINING PRODUCTS [facility] CORIANDRUM SATIVUM [facility] ALBUMEN, EGG [facility] GARLIC [facility] LATEX [facility] MUSHROOM [facility] BUPROPION HCL [facility] IBUPROFEN [facility] OMEPRAZOLE [facility] SIMVASTATIN [facility] ZOLPIDEM [facility] GABAPENTIN [facility] BUSPIRONE [facility] BUPROPION [facility] PROPRANOLOL [facility] KETOROLAC [facility] MOXIFLOXACIN [facility] IODINE [facility] ESCITALOPRAM [facility] ESCITALOPRAM OXALATE [facility] ARIPIPRAZOLE [facility] EZETIMIBE-SIMVASTATIN [facility] codeine [facility] hydrocodone [facility] oxycodone [facility] meperidine [facility] raspberry [facility] blackberry [facility] ADHESIVE \T\ TAPE [facility] CLINDAMYCIN [facility] DOCUSATE [facility] GINSENG [facility] METRONIDAZOLE [facility] SIMVASTATIN [facility] SULFAMETHOXAZOLE-TRIMETHOPRIM [facility] [place] TOLNAFTATE [facility] LEVOFLOXACIN [facility] TERBINAFINE [facility] NO KNOWN ENVIRONMENTAL ALLERGIES [facility] PENICILLINS [facility] QUINOLONES [facility] Seasonal [facility] NO KNOWN ALLERGIES [facility] No Known Medication Allergies [facility] NO ALLERGY INFORMATION AVAILABLE [facility] PENICILLINS [facility] NO KNOWN ALLERGIES [facility] ALMOND OIL [facility] APPLE [facility] GRAPE [facility] LACTASE [facility] MORPHINE [facility] No Known Drug Allergies [facility] PENICILLINS [facility] PENICILLINS [facility] NO KNOWN ALLERGIES [facility] FISH CONTAINING PRODUCTS [facility] codeine [facility] [place] hydrocodone [facility] oxycodone [facility] meperidine [facility] raspberry [facility] blackberry [facility] Results Social History date description facility [id number]
== END 2020-08-06 00:15 | disposition home or self-care (01) ==
LOC: ED 19:42
DX: R11.2 Nausea with vomiting, unspecified (principal); R42 Dizziness and giddiness; R10.13 Epigastric pain
CPT/HCPCS: 36415; 80053; 81003; 81025; 83690; 85025; 96374; 96375; 99284; J7040; 81001; 87086

== ENCOUNTER 2020-11-10 07:33 | Outpatient (CLI) | payer BC ==
[2020-11-10 08:13] LABS: BASOPHILS % (AUTO) 0.6 %; EOSINOPHILS # (AUTO) 0.2 10^3/uL (0.0-0.7); EOSINOPHILS % (AUTO) 2.4 %; HCT - HEMATOCRIT 43.8 % (37.0-47.0); HGB - HEMOGLOBIN 14.3 g/dL (12.0-16.0); MEAN CORPUSCULAR HEMOGLOBIN 28.8 pg (27.0-31.0); MEAN CORPUSCULAR HGB CONC 32.6 g/dL (32.0-36.0); MEAN CORPUSCULAR VOLUME 88.3 fL (81.0-99.0); MEAN PLATELET VOLUME 10.6 fL (7.9-10.8); MONOCYTES # (AUTO) 0.5 10^3/uL (0.0-1.0); MONOCYTES % (AUTO) 7.1 %; NEUTROPHILS # (AUTO) 4.2 10^3/uL (1.5-6.6); NEUTROPHILS % (AUTO) 60.6 %; PLT - PLATELET COUNT 260 10^3/uL (130-450); RED BLOOD COUNT 4.96 10^6/uL (4.20-5.40); RED CELL DISTRIBUTION WIDTH 14.1 % (12.0-15.0)
[2020-11-10 08:36] LABS: ALBUMIN 4.2 g/dL (3.2-5.5); ALBUMIN/GLOBULIN RATIO 1.2 (1.0-2.2); ALKALINE PHOSPHATASE 104 IU/L (42-121); ALT ALANINE AMINOTRANSFERASE 37 IU/L (10-60); AST ASPARTATE AMINOTRANSFERASE 28 IU/L (10-42); BILIRUBIN,TOTAL 0.8 mg/dL (0.2-1.0); BUN - BLOOD UREA NITROGEN 15 mg/dL (6-20); CALCIUM 9.6 mg/dL (8.5-10.3); CARBON DIOXIDE - CO2 25 mmol/L (21-32); CHLORIDE 107 mmol/L (101-111); CHOL/HDL RATIO 4.5 (<4.4); CHOLESTEROL 229 mg/dL; CREATININE 0.8 mg/dL (0.4-1.0); GFR - MDRD 78 (>89); GLUCOSE 104 mg/dL (70-100); HDL CHOLESTEROL 51 mg/dL; LDL CHOLESTEROL,CALCULATED 157 mg/dL; LDL/HDL RATIO 3.1 (<4.4); POTASSIUM 3.9 mmol/L (3.5-5.0); SODIUM 142 mmol/L (135-145); TOTAL PROTEIN 7.6 g/dL (6.7-8.2); TRIGLYCERIDES 105 mg/dL; VLDL CHOLESTEROL 21 mg/dL
[2020-11-10 08:48] LABS: THYROID STIMULATING HORMONE 2.02 uIU/mL (0.34-5.60)
== END 2020-11-10 07:34 | disposition home or self-care (01) ==
LOC: LAB 07:33
PROVIDERS: ATTEND Family Medicine
DX: Z00.00 Encounter for general adult medical examination without abnormal findings (principal); E89.0 Postprocedural hypothyroidism
CPT/HCPCS: 36415; 80053; 80061; 83721; 84443; 85025

== ENCOUNTER 2020-12-04 19:13 | Emergency (ER) | payer BC ==
[2020-12-04 21:21] LABS: BASOPHILS % (AUTO) 0.4 %; EOSINOPHILS # (AUTO) 0.2 10^3/uL (0.0-0.7); EOSINOPHILS % (AUTO) 1.6 %; HCT - HEMATOCRIT 43.2 % (37.0-47.0); HGB - HEMOGLOBIN 14.2 g/dL (12.0-16.0); LYMPHOCYTES # (AUTO) 3.2 10^3/uL (1.5-3.5); LYMPHOCYTES % (AUTO) 34.4 %; MEAN CORPUSCULAR HEMOGLOBIN 28.6 pg (27.0-31.0); MEAN CORPUSCULAR HGB CONC 32.9 g/dL (32.0-36.0); MEAN CORPUSCULAR VOLUME 86.9 fL (81.0-99.0); MEAN PLATELET VOLUME 10.6 fL (7.9-10.8); MONOCYTES # (AUTO) 0.8 10^3/uL (0.0-1.0); NEUTROPHILS # (AUTO) 5.2 10^3/uL (1.5-6.6); NEUTROPHILS % (AUTO) 55.4 %; PLT - PLATELET COUNT 258 10^3/uL (130-450); RED BLOOD COUNT 4.97 10^6/uL (4.20-5.40); RED CELL DISTRIBUTION WIDTH 13.4 % (12.0-15.0); WHITE BLOOD COUNT 9.4 x10^3/uL (4.8-10.8)
[2020-12-04 21:35] LABS: ALBUMIN 4.5 g/dL (3.2-5.5); ALBUMIN/GLOBULIN RATIO 1.4 (1.0-2.2); BILIRUBIN,TOTAL 0.9 mg/dL (0.2-1.0); CALCIUM 9.5 mg/dL (8.5-10.3); CREATININE 0.8 mg/dL (0.4-1.0); POTASSIUM 3.6 mmol/L (3.5-5.0); TOTAL PROTEIN 7.7 g/dL (6.7-8.2)
[2020-12-04] MEDS ORDERED: ONDANSETRON ODT 4 MG TABLET TL STA (22:43)
[2020-12-04 22:56] VITALS: BP 122/74
--- NOTE | 2020-12-04 23:17 | ED Physician Documentation ---
History of Present Illness - Stated complaint Stated Complaint: LT SIDE MUSCLE WEAKNESS - Chief complaint Chief Complaint: Neuro - History obtained from History obtained from: Patient - Additonal information Additional information: Patient comes emergency department chief complaint of left-sided fatigue for the last couple of weeks. She states that it is not really that her left side is weak per se, as it starts out with the same strength as the right side. Rather, she notices that her arm seems to tire out more quickly with prolonged use or holding of position on the right side, especially up against gravity. For example, she states that when she tries to blow her hair dry, it will become difficult to hold the herbal her up after couple of minutes, because her arm and hand felt tired. The patient has been having absorption issues in her GI system and has been told she may have a vitamin deficiency. She is in the midst of getting worked up for this, but was told to come to the emergency department over concern that she may have a mass occupying lesion. Patient states that her left leg also seems to fatigue as well. She has not noticed any symptoms on the right. Patient denies any visual changes, seizures, headaches, spinal pain, or sensory loss. No neck pain outside of the spine. No left shoulder issues that she knows of. Patient denies any other complaints at this time. Review of Systems Ten Systems: 10 systems reviewed and negative Constitutional: reports: Reviewed and negative Eyes: reports: Reviewed and negative Ears: reports: Reviewed and negative Nose: reports: Reviewed and negative Throat: reports: Reviewed and negative Cardiac: reports: Reviewed and negative Respiratory: reports: Reviewed and negative GI: reports: Reviewed and negative : reports: Reviewed and negative Skin: reports: Reviewed and negative Musculoskeletal: reports: Reviewed and negative Neurologic: reports: Focal weakness. denies: Numbness Psychiatric: reports: Reviewed and negative Endocrine: reports: Reviewed and negative Immunocompromised: reports: Reviewed and negative PD PAST MEDICAL HISTORY - Past Medical History Past Medical History: Yes Cardiovascular: None Respiratory: None Neuro: None Endocrine/Autoimmune: HyPOthyroidism GI: Hiatal hernia DIRECTOR UNIVERSITY: None : Kidney stones HEENT: Chronic vision loss, Chronic sinusitis Psych: Anxiety, Panic attacks Musculoskeletal: Fatigue, Chronic back pain Derm: Rosacea, Other Other Past Medical History: Paraesphogeal hernia, gastroperesis - Past Surgical History Past Surgical History: Yes General: Cholecystectomy, Appendectomy /DIRECTOR UNIVERSITY: section, Tubal ligation, Hysterectomy - Present Medications Home Medications: Ambulatory Orders Medication Instructions Recorded Confirmed ALPRAZolam [Alprazolam] 0.25 mg PO DAILY PRN 10/24/18 12/04/20 rOPINIRole [Requip] 0.5 mg PO DAILY 02/04/19 12/04/20 EPINEPHrine [Epinephrine] 0.3 mg IJ ONCE PRN #2 auto.injct 03/27/19 12/04/20 Albuterol Sulf [Ventolin Hfa 1 - 2 puffs INH Q4HR PRN #1 inhaler 07/10/19 12/04/20 Inhaler] Cyclobenzaprine [Flexeril] 10 mg PO PRN PRN 08/30/19 12/04/20 DULoxetine [Cymbalta] 30 mg PO DAILY 08/30/19 12/04/20 Thyroid [[place] Thyroid] 60 mg PO DAILY 08/30/19 12/04/20 Ondansetron Odt [Zofran] 4 mg TL Q6H PRN #10 tablet 05/02/20 12/04/20 Omeprazole Magnesium 20 mg PO BID 12/04/20 12/04/20 Ondansetron Odt [Zofran] 4 mg TL Q6H PRN #10 tablet 12/04/20 - Allergies Allergies/Adverse Reactions: Allergies Allergy/AdvReac Type Severity Reaction Status Date / Time blackberry Allergy Anaphylaxis Verified 08/05/20 19:54 codeine Allergy Unknown Verified 08/05/20 19:54 hydrocodone Allergy Unknown Verified 08/05/20 19:54 meperidine [From Demerol] Allergy Unknown Verified 08/05/20 19:54 oxycodone Allergy Unknown Verified 08/05/20 19:54 raspberry Allergy Anaphylaxis Verified 08/05/20 19:54 - Social History Does the pt smoke?: No Smoking Status: Never smoker Does the pt drink ETOH?: No Does the pt have substance abuse?: No - Immunizations Immunizations are current?: Yes - POLST Patient has POLST: No PD ED PE NORMAL - Vitals Vital signs reviewed: Yes - General General: Alert and oriented X 3, No acute distress, Well developed/nourished - HEENT HEENT: Atraumatic, PERRL, EOMI, Moist mucous membranes - Neck Neck: Supple, no meningeal sign - Cardiac Cardiac: RRR, No murmur, Strong equal pulses - Respiratory Respiratory: No respiratory distress, Clear bilaterally - Abdomen Abdomen: Soft, Non tender, Non distended - Back Back: No spinal TTP - Derm Derm: Normal color, Warm and dry, No rash - Extremities Extremities: No deformity, No edema, No calf tenderness / cord - Neuro Neuro: Alert and oriented X 3, professor of special education 2-12 intact, No motor deficit, No sensory deficit, Normal speech - Psych Psych: Normal mood, Normal affect Results - Vitals Vitals: Oxygen O2 Source Room air - Labs Labs: Laboratory Tests 12/04/20 12/04/20 21:16 21:16 WBC 9.4 RBC 4.97 Hgb 14.2 Hct 43.2 MCV 86.9 MCH 28.6 MCHC 32.9 RDW 13.4 Plt Count 258 MPV 10.6 Neut # (Auto) 5.2 Lymph # (Auto) 3.2 Mayes # (Auto) 0.8 Eos # (Auto) 0.2 Baso # (Auto) 0.0 Absolute Nucleated RBC 0.00 Nucleated RBC % 0.0 Sodium 139 Potassium 3.6 Chloride 102 Carbon Dioxide 28 Anion Gap 9.0 BUN 22 H Creatinine 0.8 Estimated GFR (MDRD) 78 L Glucose 96 Calcium 9.5 Total Bilirubin 0.9 AST 29 ALT 38 Alkaline Phosphatase 98 Total Protein 7.7 Albumin 4.5 Globulin 3.2 Albumin/Globulin Ratio 1.4 Lipase 30 - Rads (name of study) CT head Radiology: Final report received, EMP read indepedently, See rad report (neg) CT cervical spine Radiology: Final report received, EMP read indepedently, See rad report (neg) PD MEDICAL DECISION MAKING - ED course Complexity details: reviewed old records, reviewed results, re-evaluated patient, considered differential, d/w patient ED course: The patient's labs and CT scans of the head and neck were unremarkable. I discussed with the patient that at this point in time not sure exactly what is causing her to fatigue with prolonged use of her left-sided extremities; however, there have been no identified an acute or emergent condition at this time. I discussed with the patient that she needs to follow-up with her primary care physician to continue evaluation of the situation. We have discussed the MRI may be helpful tool if she continues to experience these symptoms. We have discussed the usual indications for return. Departure - Departure Disposition: 01 Home, Self Care Clinical Impression: Weakness Condition: Stable Instructions: ED Weakness [facility]O Prescriptions: Ondansetron Odt [Zofran] 4 mg TL Q6H PRN #10 tablet PRN Reason: Nausea / Vomiting Comments: Your labs Showed very very slight dehydration but otherwise normal today. The CT scans of your head and neck look good. Please follow-up with your primary doctor to discuss further work-up for your left-sided fatigue. Discharge Date/Time: 12/04/20 23:33
--- NOTE | 2020-12-05 06:57 | CT Report ---
PROCEDURE: HEAD WO INDICATIONS: LUE/LLE weakness TECHNIQUE: Noncontrast 4.5 mm thick angled axial sections acquired from the foramen magnum to the vertex. For r adiation dose reduction, the following was used: automated exposure control, adjustment of mA and/or kV according to patient size. COMPARISON: None. FINDINGS: Image quality: Excellent. CSF spaces: Basal cisterns are patent. No extra-axial fluid collections. Ventricles are normal in size and shape. Brain: No midline shift. No intracranial masses or hemorrhage. Grimm-white matter interface is norm al. Skull and face: Calvarium and visualized facial bones are intact, without suspicious lesions. Sinuses: Visualized sinuses and mastoids are clear. IMPRESSION: No acute intracranial disease process. Reviewed by: Laurel Turner MD, PhD on 12/05/2020 6:56 AM PDT Approved by: Laurel Turner MD, PhD on 12/05/2020 6:56 AM PDT Station ID: [id number]
--- NOTE | 2020-12-05 08:00 | CT Report ---
PROCEDURE: CERVICAL SPINE WO INDICATIONS: neck pain, LUE weakness TECHNIQUE: Noncontrast 3 mm thick sections acquired from the skull base to the T4 level. Sagittal and coronal r eformats were then constructed. For radiation dose reduction, the following was used: automated exp osure control, adjustment of mA and/or kV according to patient size. COMPARISON: None. FINDINGS: Image quality: Excellent. Bones: No fractures or dislocations. Probable 6 mm hemangioma noted in the C5 vertebral body. Visual ized superior ribs are intact. Soft tissues: Prevertebral soft tissues are normal in thickness. No paravertebral hematomas. No ap ical pneumothoraces. IMPRESSION: No fracture. No acute osseous lesion. If there is continued clinical concern for pathology, then MRI should be considered for further evaluation. Reviewed by: Laurel Turner MD, PhD on 12/05/2020 7:58 AM PDT Approved by: Laurel Turner MD, PhD on 12/05/2020 7:58 AM PDT Station ID: [id number]
== END 2020-12-04 23:33 | disposition home or self-care (01) ==
LOC: ED 19:13
DX: M62.81 Muscle weakness (generalized) (principal); R29.898 Other symptoms and signs involving the musculoskeletal system; E86.0 Dehydration
CPT/HCPCS: 36415; 70450; 72125; 80053; 83690; 85025; 93005; 99284; Q0162

== ENCOUNTER 2020-12-15 14:07 | Outpatient (CLI) | payer BC ==
[2020-12-15 14:44] LABS: CALCIUM 9.2 mg/dL (8.5-10.3); CREATININE 0.8 mg/dL (0.4-1.0); PHOSPHORUS 4.2 mg/dL (2.5-4.6); POTASSIUM 3.7 mmol/L (3.5-5.0)
== END 2020-12-15 14:08 | disposition home or self-care (01) ==
LOC: LAB 14:07
PROVIDERS: ATTEND Physician Assistant Medical
DX: R11.2 Nausea with vomiting, unspecified (principal)
CPT/HCPCS: 36415; 80048; 82607; 82746; 83735; 84100

== ENCOUNTER 2021-02-23 07:04 | Emergency (ER) | payer BC, OTHER ==
[2021-02-23] MEDS ORDERED: HYDROmorphone 1 MG/ML CARPUJECT IVP STA (07:23)
[2021-02-23] MEDS ORDERED: SODIUM CHLORIDE 0.9% 1,000 ML IV STA (07:23)
[2021-02-23] MEDS ORDERED: ONDANSETRON 4 MG/2 ML VIAL IVP STA (07:23)
--- NOTE | 2021-02-23 07:25 | ED Physician Documentation ---
PD HPI ABD PAIN - Stated complaint Stated Complaint: DIZZY/NAUSEA - Chief complaint Chief Complaint: Abd Pain - History obtained from History obtained from: Patient - Additional information Additional information: 45-year-old woman with history of paraesophageal hernia repair status post redo 2 months ago because of recurrent hernia, also has a history of multiple episodes of renal colic. Developed left-sided low back pain radiating to the left lower quadrant 2 days ago with a fever of 101 yesterday. Urine has been dark but no other specific urinary symptoms. She has had increased nausea and dizziness with this. 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 : Kidney stones HEENT: Chronic vision loss, Chronic sinusitis Psych: Anxiety, Panic attacks Musculoskeletal: Fatigue, Chronic back pain Derm: Rosacea, Other - Past Surgical History Past Surgical History: Yes General: Cholecystectomy, Appendectomy /CONTINUOUS IMPROVEMENT ENGINEER: section, Tubal ligation, Hysterectomy - Present Medications Home Medications: Ambulatory Orders Medication Instructions Recorded Confirmed ALPRAZolam [Alprazolam] 0.25 mg PO DAILY PRN 10/24/18 12/04/20 rOPINIRole [Requip] 0.5 mg PO DAILY 02/04/19 12/04/20 EPINEPHrine [Epinephrine] 0.3 mg IJ ONCE PRN #2 auto.injct 03/27/19 12/04/20 Albuterol Sulf [Ventolin Hfa 1 - 2 puffs INH Q4HR PRN #1 inhaler 07/10/19 12/04/20 Inhaler] Cyclobenzaprine [Flexeril] 10 mg PO PRN PRN 08/30/19 12/04/20 DULoxetine [Cymbalta] 30 mg PO DAILY 08/30/19 12/04/20 Thyroid [[place] Thyroid] 60 mg PO DAILY 08/30/19 12/04/20 Ondansetron Odt [Zofran] 4 mg TL Q6H PRN #10 tablet 05/02/20 12/04/20 Omeprazole Magnesium 20 mg PO BID 12/04/20 12/04/20 Ondansetron Odt [Zofran] 4 mg TL Q6H PRN #10 tablet 12/04/20 Morphine Ir [Ms Ir] 1 tab PO Q6H PRN #20 tablet 02/23/21 - Allergies Allergies/Adverse Reactions: Allergies Allergy/AdvReac Type Severity Reaction Status Date / Time blackberry Allergy Anaphylaxis Verified 02/23/21 07:14 codeine Allergy Unknown Verified 02/23/21 07:14 hydrocodone Allergy Unknown Verified 02/23/21 07:14 meperidine [From Demerol] Allergy Unknown Verified 02/23/21 07:14 oxycodone Allergy Unknown Verified 02/23/21 07:14 raspberry Allergy Anaphylaxis Verified 02/23/21 07:14 - Social History Does the pt smoke?: No Smoking Status: Never smoker Does the pt drink ETOH?: No Does the pt have substance abuse?: No - Immunizations Immunizations are current?: Yes - POLST Patient has POLST: No PD ED PE NORMAL - Vitals Vital signs reviewed: Yes - General General: Alert and oriented X 3, No acute distress - HEENT HEENT: PERRL, EOMI - Neck Neck: Supple, no meningeal sign, No bony TTP - Cardiac Cardiac: RRR, No murmur - Respiratory Respiratory: No respiratory distress, Clear bilaterally - Abdomen Abdomen: Normal bowel sounds, Soft, Other (Minimal upper abdominal tenderness which she thinks is postsurgical as it is not near locations of current pain.) - Back Back: Other (Mild left flank tenderness) - Derm Derm: Normal color, Warm and dry - Extremities Extremities: No edema, No calf tenderness / cord - Neuro Neuro: Alert and oriented X 3, Normal speech Results - Vitals Vitals: Vital Signs - 24 hr 02/23/21 02/23/21 07:10 08:05 Temperature 36.1 C L Heart Rate 77 78 Respiratory 16 16 Rate Blood Pressure 133/95 H 136/93 H O2 Saturation 100 97 Oxygen O2 Source Room air - Labs Labs: Laboratory Tests 02/23/21 02/23/21 02/23/21 07:30 07:40 07:40 WBC 7.8 RBC 4.71 Hgb 13.4 Hct 41.2 MCV 87.5 MCH 28.5 MCHC 32.5 RDW 14.1 Plt Count 226 MPV 11.2 H Neut # (Auto) 5.0 Lymph # (Auto) 1.9 [place] # (Auto) 0.7 Eos # (Auto) 0.1 Baso # (Auto) 0.0 Absolute Nucleated RBC 0.00 Nucleated RBC % 0.0 Sodium 140 Potassium 3.6 Chloride 106 Carbon Dioxide 24 Anion Gap 10.0 BUN 21 H Creatinine 1.1 H Estimated GFR (MDRD) 54 L Glucose 154 H Calcium 9.6 Total Bilirubin 1.2 H AST 606 H ALT 342 H Alkaline Phosphatase 136 H Total Protein 7.3 Albumin 4.1 Globulin 3.2 Albumin/Globulin Ratio 1.3 Urine Color YELLOW Urine Clarity CLEAR Urine pH 5.5 Ur Specific [place] >=1.030 H Urine Protein NEGATIVE Urine Glucose (UA) NEGATIVE Urine Ketones NEGATIVE Urine Occult Blood SMALL H Urine Nitrite NEGATIVE Urine Bilirubin NEGATIVE Urine Urobilinogen 1 (NORMAL) Ur Leukocyte Esterase NEGATIVE Urine RBC 0-5 Urine WBC 0-3 Ur Squamous Epith Cells RARE Squamous Urine Bacteria Rare Ur Microscopic Review INDICATED Urine Culture Comments NOT INDICATED Urine HCG, Qual NEGATIVE PD MEDICAL DECISION MAKING - ED course ED course: 45-year-old woman presents with symptoms consistent with left renal colic. CT of the abdomen interpreted contemporaneously by me without contrast shows moderate hydronephrosis and hydroureter on the left due to a 3 mm distal left ureteral stone. There is perinephric edema. History of cholecystectomy. Labs reviewed, urinalysis is without evidence of pyuria. Mild prerenal azotemia. No leukocytosis. She does have significant elevation in liver enzymes, this is new since last. Would be unrelated to the presenting chief complaint and therefore incidental finding. She had had redo of her paraesophageal hernia in the interim. She is following up with her surgeon tomorrow. Advised close following and recheck of the labs. Avoiding hepatotoxic agents including Tylenol which she has not been not been taking and alcohol which she does not partake in. After 1 mg of Dilaudid she was all but pain-free. Departure - Departure Disposition: 01 Home, Self Care Clinical Impression: Renal colic on left side, Elevated liver enzymes Condition: Good Record reviewed to determine appropriate education?: Yes Instructions: ED Stone Renal W Colic Prescriptions: Morphine Ir [Ms Ir] 1 tab PO Q6H PRN #20 tablet PRN Reason: Pain Comments: As discussed, you do have significant elevation of your dental finding. This needs to be followed closely and I would take the copy of the labs when you follow-up with your surgeon tomorrow as scheduled. Also take the copy of the CD scan, both the read which I have attached your discharge instructions and the original copy on CD. Return for new or worsening symptoms. I am prescribing a short course of narcotic pain medication for you. These are potentially dangerous and addictive medications that should be used carefully. These medications may constipate you. Take an [id number] stool softener (docusate) twice daily with plenty of water while taking these medications. If you go 24 hours without a bowel movement, take [id number] miralax, per package instructions. Do not drink or drive while taking these medications. If you received narcotic or sedating medications while in the emergency department, do not drive for 24 hours. Store this medication in a safe, secure place and out of reach of children. It is a violation of federal law to give or sell this medication to another per son or to use in a manner other than prescribed. The ED will not refill narcotic prescriptions, including prescriptions lost or stolen. To dispose of unwanted medications: 1. [facility] [address] in [place] has a medication drop box. They accept prescription medications (in pill form) Tuesday through Tuesday 9:00 a.m. to 5:00 p.m. 2. The [facility] accepts prescription medications (in pill form only) for disposal year round. Call for more information. 3. Contact the [facility] for the next [facility] sponsored prescription drug collection event. , [phone], or [phone]; Note that many narcotic pain relievers also contain Tylenol/acetaminophen. Please ensure that your total dose of acetaminophen from all sources does not exceed 3 g (3000 mg) per day.
[2021-02-23] MEDS ORDERED: HYDROmorphone 1 MG/ML CARPUJECT ONE (07:34)
[2021-02-23] MEDS ORDERED: ONDANSETRON 4 MG/2 ML VIAL ONE (07:34)
[2021-02-23 07:46] LABS: BASOPHILS % (AUTO) 0.4 %; EOSINOPHILS # (AUTO) 0.1 10^3/uL (0.0-0.7); EOSINOPHILS % (AUTO) 1.4 %; HCT - HEMATOCRIT 41.2 % (37.0-47.0); HGB - HEMOGLOBIN 13.4 g/dL (12.0-16.0); LYMPHOCYTES # (AUTO) 1.9 10^3/uL (1.5-3.5); LYMPHOCYTES % (AUTO) 24.9 %; MEAN CORPUSCULAR HEMOGLOBIN 28.5 pg (27.0-31.0); MEAN CORPUSCULAR HGB CONC 32.5 g/dL (32.0-36.0); MEAN CORPUSCULAR VOLUME 87.5 fL (81.0-99.0); MEAN PLATELET VOLUME 11.2 fL (7.9-10.8); MONOCYTES # (AUTO) 0.7 10^3/uL (0.0-1.0); MONOCYTES % (AUTO) 8.4 %; NEUTROPHILS % (AUTO) 64.8 %; PLT - PLATELET COUNT 226 10^3/uL (130-450); RED BLOOD COUNT 4.71 10^6/uL (4.20-5.40); RED CELL DISTRIBUTION WIDTH 14.1 % (12.0-15.0); WHITE BLOOD COUNT 7.8 x10^3/uL (4.8-10.8)
[2021-02-23 07:51] LABS: BILIRUBIN,URINE NEGATIVE (NEGATIVE); GLUCOSE, URINE (UA) NEGATIVE (NEGATIVE); KETONES,URINE (UA) NEGATIVE (NEGATIVE); LEUKOCYTE ESTERASE, URINE NEGATIVE (NEGATIVE); NITRITE,URINE NEGATIVE (NEGATIVE); OCCULT BLOOD,URINE SMALL (NEGATIVE); PH,URINE 5.5 PH (5.0-7.5); PROTEIN,URINE NEGATIVE (NEGATIVE); UROBILINOGEN,URINE 1 (NORMAL) E.U./dL (NORMAL)
[2021-02-23 07:53] LABS: CLARITY,URINE CLEAR (CLEAR)
[2021-02-23 07:54] LABS: HCG UR QUAL NEGATIVE
[2021-02-23 08:03] LABS: ALBUMIN 4.1 g/dL (3.2-5.5); ALBUMIN/GLOBULIN RATIO 1.3 (1.0-2.2); BILIRUBIN,TOTAL 1.2 mg/dL (0.2-1.0); CALCIUM 9.6 mg/dL (8.5-10.3); CREATININE 1.1 mg/dL (0.4-1.0); POTASSIUM 3.6 mmol/L (3.5-5.0); TOTAL PROTEIN 7.3 g/dL (6.7-8.2)
[2021-02-23 08:04] LABS: BACTERIA,URINE Rare /HPF (None Seen); RBC,URINE 0-5 /HPF (0-5); SQUAMOUS EPITHELIAL CELL,UR RARE Squamous (<= Few); WBC,URINE 0-3 /HPF (0-5)
--- NOTE | 2021-02-23 08:21 | CT Report ---
PROCEDURE: Abdomen/Pelvis WO INDICATIONS: L flank pain TECHNIQUE: Noncontrast 5 mm thick sections acquired from the diaphragms to the symphysis. 5 mm coronal and sagi ttal reformats were then performed. For radiation dose reduction, the following was used: automated exposure control, adjustment of mA and/or kV according to patient size. COMPARISON: None. FINDINGS: Image quality: Excellent. ABDOMEN: Lung bases: Lung bases are clear. Heart size is normal. Solid organs: Liver and spleen are normal in size. Gallbladder has been resected Pancreas is gera l in contours. No adrenal nodules. Kidneys are asymmetric in size, larger on the left due to swelli ng, without right-sided hydronephrosis or nephrolithiasis 3 mm rounded stone can be seen.. Peritoneum and bowel: Unenhanced bowel loops demonstrate normal wall thickness and caliber. No free fluid or air. Nodes and vessels: No retroperitoneal or mesenteric adenopathy by size criteria. Aorta and inferior vena cava are normal in caliber. Miscellaneous: No ventral hernias. PELVIS: Genitourinary: Bladder wall thickness is normal. Miscellaneous: No inguinal hernias or adenopathy. Bones: No suspicious bony lesions. No vertebral body compression fractures. IMPRESSION: Prior cholecystectomy. Moderate hydronephrosis and hydroureter on the left to a 3 mm impacted distal left ureteral stone. No urinary tract stone elsewhere is found. Edema mildly enlarges the left kidney and there is mild perinephric edema. Reviewed by: Naga Whitley MD on 02/23/2021 8:20 AM PDT Approved by: Naga Whitley MD on 02/23/2021 8:20 AM PDT Station ID: [id number]
[2021-02-23 10:05] VITALS: BP 126/88
== END 2021-02-23 10:05 | disposition home or self-care (01) ==
LOC: ED 07:04
DX: N13.2 Hydronephrosis with renal and ureteral calculous obstruction (principal); R94.5 Abnormal results of liver function studies
CPT/HCPCS: 36415; 74176; 80053; 81001; 81025; 85025; 96374; 99284; 99285; J1170; 81003; 87086

== ENCOUNTER 2021-02-24 20:24 | Outpatient (CLI) | payer BC, OTHER ==
--- NOTE | 2021-02-24 21:52 | Ultrasound Report ---
PROCEDURE: Abdomen Limited INDICATIONS: ELEVATED LFT'S, JUANDICE TECHNIQUE: Real-time focused scanning was performed of the abdomen, with image documentation. COMPARISON: CT abdomen and pelvis 02/23/2021. FINDINGS: Liver is normal in size measuring 14.8 cm. Liver is diffusely echogenic. Small hypoechoic lesions not ed in the left lobe the liver that measures 0.9 x 0.6 x 1.1 cm which appears to correspond to focal f atty infiltration in the liver adjacent to the falciform ligament. Gallbladder is surgically absent. Biliary tree is nondilated. Common bile but measures 4.5 mm. Pancreas is obscured by bowel gas cannot be evaluated. Limited evaluation of the right kidney demonstrates a 1.1 cm cyst. IMPRESSION: 1. Status post cholecystectomy. 2. No biliary dilatation. 3. Hepatic fatty infiltration. Reviewed by: Laurel Turner MD, PhD on 02/24/2021 9:50 PM PDT Approved by: Laurel Turner MD, PhD on 02/24/2021 9:50 PM PDT Station ID: [id number]
== END 2021-02-24 20:25 | disposition home or self-care (01) ==
LOC: DI 20:24
PROVIDERS: ATTEND Surgery
DX: R94.5 Abnormal results of liver function studies (principal); R17 Unspecified jaundice; Z90.49 Acquired absence of other specified parts of digestive tract

== ENCOUNTER 2021-02-26 15:52 | Outpatient (CLI) | payer BC, OTHER ==
[2021-02-26 20:50] LABS: PT - PROTHROMBIN TIME 11.6 secs (9.9-12.6)
[2021-02-26 20:53] LABS: ALBUMIN 4.3 g/dL (3.2-5.5); ALBUMIN/GLOBULIN RATIO 1.3 (1.0-2.2); BILIRUBIN,TOTAL 0.5 mg/dL (0.2-1.0); CALCIUM 9.4 mg/dL (8.5-10.3); CREATININE 0.7 mg/dL (0.4-1.0); POTASSIUM 3.6 mmol/L (3.5-5.0); TOTAL PROTEIN 7.7 g/dL (6.7-8.2)
== END 2021-02-26 15:53 | disposition home or self-care (01) ==
LOC: LAB.N 15:52
PROVIDERS: ATTEND Family Medicine
DX: R79.89 Other specified abnormal findings of blood chemistry (principal)
CPT/HCPCS: 36415; 80053; 80074; 81599; 83690; 85610